=== PATIENT | female | born 1980 | race Caucasian/White ===

== ENCOUNTER 2021-10-11 10:48 | Outpatient (REF) | payer MEDICAID, SELFPAY ==
--- NOTE | ~2021-10-11 | XR_ITS ---
EXAMINATION: XR lumbar spine 2-3V CLINICAL INFORMATION: Reason for Exam M54.50 LOW BACK PAIN COMPARISON: None TECHNIQUE: 3 views of the lumbar spine XR/XR lumbar spine 2-3V FINDINGS/IMPRESSION: 5 nonrib-bearing lumbar-type vertebral bodies. Schmorl's noted are noted involving T12-L3. Vertebral body heights are otherwise maintained. Grade 1 retrolisthesis of L4 on L5. Mild multilevel degenerative disc disease with loss of disc space height, small disc osteophyte complexes and lower lumbosacral facet arthropathy. Loss of disc space height is worst at L4-L5. Paravertebral soft tissues are unremarkable.
== END 2021-10-11 10:49 | disposition home or self-care (01) ==
LOC: HO.HMGCX 10:48
PROVIDERS: PCP Internal Medicine; Visit Provider Internal Medicine
DX: M54.50 Low back pain, unspecified (principal)
CPT/HCPCS: 72100

== ENCOUNTER → 2021-12-06 08:18 | Outpatient (BNVA) | payer MEDICAID, SELFPAY | PROVIDERS: PCP Internal Medicine; Visit Provider Internal Medicine | DX: M53.3 Sacrococcygeal disorders, not elsewhere classified (principal); M79.18 Myalgia, other site; M47.816 Spondylosis without myelopathy or radiculopathy, lumbar region; E66.3 Overweight; Z68.43 Body mass index [BMI] 50.0-59.9, adult; Z88.1 Allergy status to other antibiotic agents; Z88.3 Allergy status to other anti-infective agents; Z88.0 Allergy status to penicillin; Z79.899 Other long term (current) drug therapy | CPT/HCPCS: 99202 ==

== ENCOUNTER 2021-12-22 06:36 | Outpatient (REF) | payer MEDICAID, SELFPAY | END 2021-12-22 06:37 | disposition home or self-care (01) | LOC: HO.RADIR 06:36 | PROVIDERS: Visit Provider Internal Medicine | DX: Z13.89 Encounter for screening for other disorder (principal) ==

== ENCOUNTER 2022-01-13 08:00 | Outpatient (RCR) | payer MEDICAID, SELFPAY ==
--- NOTE | 2021-12-27 16:45 | MHC.PT.EP ---
[facility] [place] Office [place] Office [place] Office [address] [phone] F: [phone] F: [phone] F: [phone] F: [phone] Physical Therapy Plan of Care Date of Evaluation: Date of Surgery: Diagnosis: coccyxygeal pain. Assessment: Pt is a 41 y/o female referred to PT for scrococcygeal disorders after fall resulting in decreased tolerance for static positions if sitting and supine, rolling in bed and disturbed sleep, performing heavy HH chores secondary to decreased B hip and LE strength, decreased core strength, and significant Hx of chronic LBP with R LE dysfunction. Pt is deemed an appropriate candidate to receive skilled PT in order to address her physical limitations to improve her functional ability. Frequency and Duration: The patient will be seen 2x/wk x 5 wks. Short Term Goals: initiate HEP. Alf Goals: I with HEP. Improve B hip abd MMT by at least 1/2 MMT. Improve core strength to > good, initial Fair+. Pt will reports pain limits her from sitting > 1 hour, initial; < 10 min. Pt will report < 1/2 disturbed nights sleep; initial: 3/4 to completely disturbed. Treatment Plan: Modalities to reduce pain, spasms and effusion. Manual therapy to restore motion and function. Therapeutic exercise to improve strength and flexibility. Neuromuscular re-education for posture and balance. Therapeutic activities to return to functional activities of daily living. Electronically signed by: Travon Alfaro PT. Please sign and return to therapist. Thank you for your referral.
--- NOTE | 2022-10-11 15:32 | MHC.PT.DC ---
[facility] [place] Office [place] Office [place] Office [address] [phone] F: [phone] F: [phone] F: [phone] F: [phone] Physical Therapy Discharge Report Diagnosis: coccyxygeal pain. Date of Surgery: Date of Evaluation: 12/21/21 Date of Discharge: 10/11/22 Treatments to Date: 5 Cancellations to Date: 2 No Shows to Date: Discharge Status: Improved Function Patient Elected to Stop Discharge Summary: Pt attended 5 visits with some improvement though did not ultimately follow up with therapy to the end of her program. Electronically signed by: Travon Alfaro PT. Please sign and return to therapist. Thank you for your referral.
== END 2022-10-11 15:36 | disposition home or self-care (01) ==
LOC: HO.PTCHIC 08:00
PROVIDERS: PCP Internal Medicine; Visit Provider Internal Medicine
DX: M53.3 Sacrococcygeal disorders, not elsewhere classified (principal)
CPT/HCPCS: 97110; 97161

== ENCOUNTER 2022-06-29 12:36 | Outpatient (REF) | payer MEDICARE, MEDICAID, SELFPAY ==
--- NOTE | ~2022-06-29 | XR_ITS ---
EXAMINATION: XR CHEST CLINICAL INFORMATION: Bronchitis. COMPARISON: None TECHNIQUE: 2 views of the chest were obtained. FINDINGS: No significant abnormality is noted involving the heart, lungs, mediastinum, bony thorax or soft tissues. XR/XR chest 2V IMPRESSION: No acute cardiopulmonary process.
== END 2022-06-29 12:37 | disposition home or self-care (01) ==
LOC: HO.HMGCX 12:36
PROVIDERS: PCP Internal Medicine; Visit Provider Internal Medicine
DX: J40 Bronchitis, not specified as acute or chronic (principal)
CPT/HCPCS: 71046

== ENCOUNTER 2022-08-04 14:04 | Outpatient (REF) | payer MEDICARE, MEDICAID, SELFPAY ==
--- NOTE | ~2022-08-04 | US_ITS ---
EXAMINATION: US PELVIS CLINICAL INFORMATION: Frequent menstruation with regular cycles COMPARISON: None TECHNIQUE: Ultrasound of the pelvis is performed using both transabdominal and transvaginal transducers along with Doppler. Transvaginal imaging is performed due to inadequate visualization transabdominally. FINDINGS: The uterus is anteverted and retroflexed and measures 9.2 x 3.6 x 4.7 cm in dimension. No focal uterine lesion. Endometrial thickness is normal measuring 1 cm. There are nabothian cysts in the cervix. The ovaries are seen transabdominally only and are normal appearing. The right ovary measures 2.8 x 1.6 x 2.8 cm. The left ovary measures 3.6 x 1.7 x 3.7 cm. There is no fluid in the pelvis. US/US pelvic and transvaginal IMPRESSION: Unremarkable exam.
== END 2022-08-04 14:05 | disposition home or self-care (01) ==
LOC: HO.HMGCX 14:04
PROVIDERS: PCP Internal Medicine; Visit Provider Advanced Practice Midwife
DX: N92.0 Excessive and frequent menstruation with regular cycle (principal)
CPT/HCPCS: 76830; 76856

== ENCOUNTER 2022-09-23 12:54 | Outpatient (REF) | payer MEDICARE, MEDICAID, SELFPAY ==
--- NOTE | 2022-09-23 | PFT_ITS ---
INDICATION: Wheezing. SPIROMETRY: FEV1 to FVC of 77% with an FEV1 of 2.86 L, which is 92% predicted and an FVC of 3.71 L, which is 98% predicted. No significant response to bronchodilators noted. Maximum voluntary ventilation 94% predicted. LUNG VOLUMES: Total lung capacity 116% predicted with a residual volume 138% predicted, and an expiratory reserve volume of 24% predicted. DIFFUSION CAPACITY: DLCO 94% predicted. COMPARISONS: None. INTERPRETATION: No obstructive nor restrictive ventilatory defects identified. No significant response to bronchodilators noted. Of note, the patient does have some mild degrees of small airway disease which could be secondary to reactive airway disease or due to an elevated BMI. Normal maximum voluntary ventilation. Lung volumes do demonstrate significant air trapping and trend of hyperinflation, which is likely secondary to the small airways disease as well. There is a decrease in the expiratory reserve volume secondary to an elevated BMI. Diffusion capacity is within normal limits. If asthma is in the differential, methacholine challenge may be helpful in assessing for hyper-reactive airways. Otherwise, clinical correlation warranted. MD MIRIAN Michael/MODL / [id number]
== END 2022-09-23 12:55 | disposition home or self-care (01) ==
LOC: HO.RESP 12:54
PROVIDERS: PCP Internal Medicine; Visit Provider Registered Nurse
DX: R06.2 Wheezing (principal); R05.1 Acute cough
CPT/HCPCS: 94060; 94727; 94729

== ENCOUNTER 2023-01-19 11:00 | Outpatient (RCR) | payer MEDICARE, MEDICAID, SELFPAY ==
--- NOTE | 2023-02-07 11:48 | MHC.PT.DC ---
[facility] [place] Office [place] Office [place] Office [address] [phone] F: [phone] F: [phone] F: [phone] F: [phone] Physical Therapy Discharge Report Diagnosis: Fibromyalgia. Date of Surgery: Date of Evaluation: 12/20/22 Date of Discharge: 02/07/23 Treatments to Date: 8 Cancellations to Date: No Shows to Date: Discharge Status: Independent with HEP Recommend MD Follow-up Discharge Summary: Susana had been an active participant in her therapy however she had demonstrated persistent limitations in her her ability to progress her therapeutic activities for her prescribed condition d/t other chronic conditions involving her R UE as well as B leg pain and n/t. She is I with a basic program and will consider purchasing a home TENs unit as this helped with some pain. Electronically signed by: Travon Alfaro PT. Please sign and return to therapist. Thank you for your referral.
== END 2023-02-07 11:49 | disposition home or self-care (01) ==
LOC: HO.PTCHIC 11:00
PROVIDERS: PCP Internal Medicine; Visit Provider Internal Medicine
DX: M79.7 Fibromyalgia (principal)
CPT/HCPCS: 97014; 97110; 97161

== ENCOUNTER 2023-01-31 11:58 | Outpatient (REF) | payer MEDICARE, MEDICAID, SELFPAY ==
--- NOTE | ~2023-01-31 | XR_ITS ---
EXAMINATION: XR KNEE, LEFT CLINICAL INFORMATION: Pain COMPARISON: None available. TECHNIQUE: Two views of the left knee. FINDINGS: Bone alignment is normal. No fracture or dislocation. Normal joint spaces. Moderate joint effusion. XR/XR knee LT 2V IMPRESSION: Joint effusion.
== END 2023-01-31 11:59 | disposition home or self-care (01) ==
LOC: HO.HMGCX 11:58
PROVIDERS: PCP Family Medicine; Visit Provider Family Medicine
DX: M25.562 Pain in left knee (principal)
CPT/HCPCS: 73560

== ENCOUNTER 2023-02-10 09:31 | Outpatient (REF) | payer MEDICARE, MEDICAID, SELFPAY ==
--- NOTE | ~2023-02-10 | MM_ITS ---
EXAMINATION: MM SCREENING DIGITAL BREAST TOMOSYNTHESIS, BILATERAL CLINICAL INFORMATION: Screening. Asymptomatic. The lifetime risk of breast cancer based on the Tyrer-Cuzick Model is 12%. COMPARISON: Mammography: 06/20/2019 (baseline). TECHNIQUE: Digital breast tomosynthesis is performed in both the craniocaudal and mediolateral oblique views along with computer-aided detection (CAD). Synthesized 2D images are generated from the tomosynthesis. FINDINGS: The breasts are almost entirely fatty (ACR BI-RADS breast composition Category a). Background stromal markings are normal. There is no developing density or architectural abnormality from prior baseline exam. There are no significant masses, abnormal calcifications, or other abnormalities. The axilla and skin contours are unremarkable. MM/MM tomosynthesis screening BI IMPRESSION: No mammographic evidence of malignancy. ASSESSMENT: BI-RADS 1: Negative RECOMMENDATION: Routine annual mammography screening. This patient's information was entered into a reminder system with a target due date for their next mammogram.
== END 2023-02-10 09:32 | disposition home or self-care (01) ==
LOC: HO.MAMMO 09:31
PROVIDERS: PCP Family Medicine; Visit Provider Family Medicine
DX: Z12.31 Encounter for screening mammogram for malignant neoplasm of breast (principal)
CPT/HCPCS: 77063; 77067

== ENCOUNTER 2023-07-24 11:09 | Outpatient (AMB) | payer MEDICAID, SELFPAY ==
--- NOTE | 2023-07-24 11:10 | MHC.OFFVIS ---
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 She was initially evaluated by Dr. Sharpe in November 2021 and was suggested formal course of physical therapy. Denies any recent trauma, injury or falls. She reports no pain relief or function improvement. Patient reports recently completing cervical, thoracic and lumbar spine MRI results at [facility]- we will request these reports. She has started using walker in February 2023 due to worsening of bilateral leg weakness, pain, numbness and tingling, more frequently on the right than left. She has been followed by Dr. Daniel at [facility] for Worker Comp case with work related injury on 04/06/2019 which has been settled. Patient also reports left knee pain due to OA for which she started PT but cannot tolerate it due to significant mid-low back pain. She reports oxycodone is being prescribed by her PCP and has been the most effective. Gabapentin, Lyrica and previous back injections have not been effective. Denies any fever, weight loss, abdominal or groin pain, bladder or bowel incontinence, or saddle anesthesia. PRIOR Dr. Sharpe 12/06/21: Patient is a 41-year-old female presenting with a history of longstanding mid-back and low-back pain. Her shoulder and low-back pain first started after a fall at work and recently she fell again in her front porch leading to coccyx pain. Patient?s low-back pain was deemed to be secondary to multiple possible pain generators by her previous pain providers including lumbar spondylosis, SI joint dysfunction, and coccygeal pain secondary to trauma. For her coccyx pain, she was prescribed low-dose oxycodone which has now been weaned off. He coccyx pain is the most bothersome at this point and has not responded to the use of a donut pillow. She has not undergone physical therapy specifically for this pain yet and she has not undergone any diagnostic injection for coccydynia either. She has previously failed a trial of MBBs with local anesthetic for her chronic low-back pain. Pain today is described as being 10/10 in intensity in her low and mid back. It is described as an aching stabbing sensation in this region. Pain also radiates down to her left lower extremity on the lateral aspect of it as well as in the front and posterior aspect of the knee. She also has a history of multiple shoulder surgeries and continues to have aching and stabbing pain in her right shoulder. She is currently under treatment at [facility] for this pain. Location Full back pain, radiates down to bilateral legs Duration Chronic pain for many years Characteristics of symptom or complaint Aching, sharp, stabbing, radiating Aggravating or associated factors Standing, walking, bending, movements, cold weather changes Relieving factors Oxycodone 10mg q6h Treatment PT- 1 year ago no improvement. Injections in [place] in 1999 [facility] Medical History Myofascial pain syndrome Overweight Bone spur Surgical History S/P rotator cuff repair H/O section Social History Alcohol intake: never Patient Tobacco Use Status: Current everyday Tobacco user Tobacco use type: Cigarette Cigarette Packs Per Day: 0.5 Substance Use Type: Caffiene Review of Systems Const All systems reviewed & are unremarkable except as noted in HPI and below Physical Exam General: Appears afebrile. Morbidly obese. Alert and oriented. Mood and affect appropriate. Follows and participates in conversation appropriately. Respiratory effort is unlabored. No cough. Able to transition from sit to stand unassisted. Ambulates with assistance of walker. Ambulates with bilaterally normal heel strike and toe off. Back/Spine/Pelvis Other: Well healed incision on the left lateral aspect of the gluteal cleft from a prior pilonidal cyst excision. Lumbar extension reproduces significant pain, flexion relieves her pain. Painful facet loading bilaterally. No midline tenderness to palpation in the thoracic and lumbar spine. Cervical Spine: cervical ROM normal and No Cervical spine tenderness Thoracic/Lumbar Spine: thoracic and lumbar spine normal to inspection, No Thoracic/lumbar spine scar(s), Lasegue's sign negative, straight leg raise negative bilaterally, pain with thoraco-lumbar ROM, paraspinal muscle tenderness, thoraco-lumbar ROM limited, No thoracic spinal tenderness and lumbar spinal tenderness at L4 and at L5 Pelvis: no buttock tenderness Sacroiliac joints: bilaterally nontender Extrem General: Yes capillary refill normal, Yes no clubbing, cyanosis or edema and Yes no calf tenderness Results Reviewed Results Reviewed: Lumbar Spine X-Ray (10/11/21): FINDINGS/IMPRESSION: ? 5 nonrib-bearing lumbar-type vertebral bodies. ? Schmorl's noted are noted involving T12-L3. Vertebral body heights are otherwise maintained. Grade 1 retrolisthesis of L4 on L5. ? Mild multilevel degenerative disc disease with loss of disc space height, small disc osteophyte complexes and lower lumbosacral facet arthropathy. Loss of disc space height is worst at L4-L5. ? Paravertebral soft tissues are unremarkable. Assessment & Plan Assessment & Plan (1) Lumbar spondylosis: Code(s): M47.816 - Spondylosis without myelopathy or radiculopathy, lumbar region (2) Myofascial pain syndrome: Code(s): M79.18 - Myalgia, other site (3) Chronic thoracic back pain: Code(s): M54.6 - Pain in thoracic spine; G89.29 - Other chronic pain (4) Morbid obesity with BMI of 50.0-59.9, adult: Code(s): E66.01 - Morbid (severe) obesity due to excess calories; Z68.43 - Body mass index [BMI] 50.0-59.9, adult (5) Vertebrogenic pain syndrome: Code(s): M54.89 - Other dorsalgia Plan 1.??? Request sent to [facility] for recent whole spine MRI results. Endplate changes noted on vertebral bodies on previous plain films in 2021. May need therapy for vertebrogenic back pain in the future. 2. Patient currently is being prescribed oxycodone, diclofenac gel and amitriptyline prescribed by her PCP which allows her to be less symptomatic and more functional. She has tried gabapentin and Lyrica with minimal relief therefore discontinued it. 3. Patient is seeing Dr. Daniel at [facility] and has received multiple back and joint injections with minimal to no pain relief. She is hesitant towards steroidal. We discussed neuromodulation with SCS trial and implant. Expectations, risks and benefits were reviewed. She is seeing psychologist at [facility]. Informational brochures on SCS has been given to patient today. She will notify us with her decision. 4. Recommend referral for Nutritional Consultation to assist patient with weight loss. All questions and concerns have been answered and patient agreed with the plan. Follow up as needed. Coding Level of Care Code Est Pt Level 4 (36793) Diagnoses Lumbar spondylosis M47.816 Myofascial pain syndrome M79.18 Chronic thoracic back pain M54.6; G89.29 Morbid obesity with BMI of 50.0-59.9, adult E66.01; Z68.43 Vertebrogenic pain syndrome M54.89
[2023-07-24 11:20] VITALS: BP 125/76; PULSE 116; O2SAT 98; BMI 53.6
== END 2023-07-24 11:46 | disposition home or self-care (01) ==
PROVIDERS: PCP Family Medicine; Referring Provider Family Medicine; Visit Provider Nurse Practitioner Family
DX: M47.816 Spondylosis without myelopathy or radiculopathy, lumbar region (principal); M79.18 Myalgia, other site; M54.6 Pain in thoracic spine; G89.29 Other chronic pain; E66.01 Morbid (severe) obesity due to excess calories; Z68.43 Body mass index [BMI] 50.0-59.9, adult; M54.89 Other dorsalgia
CPT/HCPCS: 99214

== ENCOUNTER → 2023-07-24 11:09 | Outpatient (BNVA) | payer MEDICARE, MEDICAID, SELFPAY | PROVIDERS: PCP Family Medicine; Referring Provider Family Medicine; Visit Provider Nurse Practitioner Family | DX: M47.816 Spondylosis without myelopathy or radiculopathy, lumbar region (principal); M79.18 Myalgia, other site; G89.29 Other chronic pain; M54.6 Pain in thoracic spine; M54.89 Other dorsalgia; E66.01 Morbid (severe) obesity due to excess calories; Z68.43 Body mass index [BMI] 50.0-59.9, adult; Z79.891 Long term (current) use of opiate analgesic | CPT/HCPCS: 99212 ==

== ENCOUNTER 2023-10-06 15:36 | Outpatient (REF) | payer MEDICARE, MEDICAID, SELFPAY ==
[2023-10-06 17:26] LABS: MANUAL DIFF FLAG NO
[2023-10-06 17:36] LABS: Basophils Absolute Auto 0.1 X10*3/uL (0.0-0.2); Basophils Percent Auto 1.2 % (0-2); Eosinophils Absolute Auto 0.2 X10*3/uL (0.0-0.4); Eosinophils Percent Auto 2.5 % (0-4); Hemoglobin 12.8 g/dl (12.0-16.0); Imm Gran Abs Auto 0.02 X10*3/uL (0.00-0.03); Imm Gran Pct Auto 0.2 % (0.0-0.4); Lymphocytes Absolute Auto 3.4 X10*3/uL (1.2-4.9); Lymphocytes Percent Auto 37.7 % (20-40); Mean Corpuscular HGB Conc 32.8 g/dl (31.0-35.0); Mean Corpuscular Hemoglobin 31.8 pg (27.0-33.0); Mean Platelet Volume 11.2 fL (9.4-12.3); Monocytes Absolute Auto 0.6 X10*3/uL (0.1-1.2); Monocytes Percent Auto 6.1 % (2-11); Neutrophils Absolute Auto 4.7 x10*3/uL (2.0-8.3); Neutrophils Percent Auto 52.3 % (45-73); Platelet Count 259 X10*3/uL (160-400); Red Blood Count 4.02 X10*6/uL (4.20-5.50); Red Cell Distribution Width 14.2 % (11.0-16.0); White Blood Count 9.1 X10*3/uL (4.8-10.8)
[2023-10-06 17:40] LABS: Appearance Urine Clear; Color Urine Yellow; Glucose Urine UA Negative (Negative); Leukocyte Esterase Urine Negative (Negative); Nitrite Urine Negative (Negative); PH 5.5 (5.0-9.0); Specific Gravity - Urine 1.015 (1.005-1.025); UMIC TRIGGER UACC YES; Urine Blood Small (1+) (Negative); Urine Ketones Negative (Negative); Urine Protein Negative (Neg-Trace)
[2023-10-06 17:49] LABS: Anion Gap 12 (12-20); Blood Urea Nitrogen 6 mg/dL (9-16); Carbon Dioxide 27 mmol/L (22-29); Chloride 106 mmol/L (96-108); Estimated Glomerular Filt Rate > 60; Glucose Random 104 mg/dL (60-115); Potassium 4.2 mmol/L (3.3-5.1); Sodium 141 mmol/L (135-145)
[2023-10-06 17:50] LABS: Bacteria Urine None Seen (None Seen); Hyaline Casts Urine 0-2 /LPF (0-2); Squamous Epithelial Cell Urine 0-2 /HPF (0-2); WBC Urine 0-5 /HPF (0-5)
== END 2023-10-06 15:37 | disposition home or self-care (01) ==
LOC: HO.CHCLDS 15:36
PROVIDERS: Visit Provider Internal Medicine
DX: R10.32 Left lower quadrant pain (principal)
CPT/HCPCS: 36415; 80048; 81001; 85025

== ENCOUNTER 2023-10-09 11:25 | Outpatient (REF) | payer MEDICARE, MEDICAID, SELFPAY ==
--- NOTE | ~2023-10-09 | XR_ITS ---
EXAMINATION: XR ABDOMEN COMPLETE CLINICAL INDICATION: Left upper and left lower quadrant pain COMPARISON: None available. TECHNIQUE: 2 views of the abdomen. FINDINGS: Study limited by body habitus. Nonobstructive bowel pattern. Liver may be slightly prominent in size, correlate clinically. No renal calculi. Calcification right hemipelvis probably phlebolith. Bony structures are intact. XR/XR abdomen min 2V IMPRESSION: No renal calculi.
== END 2023-10-09 11:26 | disposition home or self-care (01) ==
LOC: HO.HMGCX 11:25
PROVIDERS: PCP Family Medicine; Visit Provider Internal Medicine
DX: R10.32 Left lower quadrant pain (principal)
CPT/HCPCS: 74019

== ENCOUNTER 2024-10-07 14:25 | Outpatient (AMB) | payer MEDICARE, MEDICAID, SELFPAY ==
[2024-10-07 14:29] VITALS: BP 120/62; PULSE 106; O2SAT 98; BMI 47.5
--- NOTE | 2024-10-07 14:29 | MHC.OFFVIS ---
Vital Signs 10/07/24 14:29 Height 5 ft 5 in Weight 285 lb 4.45 oz BMI 47.5 BP 120/62 Blood Pressure Location Rt brachial Position Sitting Pulse 106 H Pulse Source Pulse Oximeter Pulse Oximetry (%) 98 Oxygen Delivery Method Room Air Intake Visit Reasons: Colonoscopy Screening Intake Note: NEW PATIENT Reason; Screening No prior hx of colo/egd. + FMHx. Concerns/Questions? Allergies Penicillins [PCN] Allergy (Mild, Verified 10/07/24 14:35) HIVES cephalexin [Keflex] Allergy (Unknown, Verified 10/07/24 14:35) hives fluconazole [Diflucan] Allergy (Unknown, Verified 10/07/24 14:35) n/v acetaminophen Adverse Reaction (Intermediate, Verified 10/07/24 14:35) Bruising ibuprofen Adverse Reaction (Intermediate, Verified 10/07/24 14:35) Bruising HPI HPI Colonoscopy Screening: Details: 44 year old? female with past medical history of hypertension, chronic back pain is here today for pre colonoscopy screening.? Patient was sent to us by her PCP.? This is her first colonoscopy screening.? Patient denies any gastrointestinal symptoms in the past or at present.? Family history of CRC. Patient reports that her sister was diagnosed with CRC 1 week ago and started her chemotherapy. Patient denies any melena, hematochezia, unintentional weight loss or ribbon like stools. Denies history of difficulty with sedation or anesthesia in the past.? Negative for history of sleep apnea.? Denies any history of cardiac, renal, pulmonary, or hepatic disease.?? No history of infectious? diseases like hepatitis A, B, C, HIV or tuberculosis.? Patient is not on any anticoagulation [facility] Medical History Myofascial pain syndrome Overweight Bone spur Surgical History History of carpal tunnel release (~07/2024) S/P rotator cuff repair H/O section Family History (Updated 10/07/24 @ 14:41 by KEV Mederos) Sister GBS (Guillain [place] syndrome) Sister Cervical cancer Sister Colon cancer Social History Alcohol intake: never Patient Tobacco Use Status: Current everyday Tobacco user Tobacco use type: Cigarette Cigarette Packs Per Day: 0.5 Substance Use Type: Caffiene Review of Systems Const Denies weight gain and Denies weight loss ENT Reports no additional complaints, Denies dysphagia and Denies odynophagia Card Reports no additional complaints Resp Reports no additional complaints GI Denies abdominal pain, Denies belching, Denies melena, Denies bloating, Denies change in bowel habits, Denies dysphagia, Denies excessive flatus, Denies dyspepsia, Denies heartburn, Denies diarrhea, Denies loose stools, Denies nausea, Denies odynophagia and Denies vomiting Musc Reports no additional complaints Neuro Reports no additional complaints Psych Reports no additional complaints Endo Reports no additional complaints Physical Exam Vital Signs: Last Vital Signs Pulse 106 H 10/07/24 14:29 BP 120/62 10/07/24 14:29 Pulse Ox 98 10/07/24 14:29 Oxygen Delivery Method Room Air 10/07/24 14:29 BMI result Body Mass Index 47.5 Const General: healthy appearing, no acute distress and well developed Nutritional Appearance: well nourished Orientation/consciousness: patient oriented x3 Resp Effort & Inspection: normal respiratory effort, able to speak in complete sentences, no tracheal deviation and symmetric chest movement Auscultation: clear to auscultation bilaterally Cardio Rate: regular rate GI Inspection: Yes normal to inspection and No distended Palpation (GI): Soft to palpation, not firm, nontender and No hepatosplenomegaly present Auscultation: normal bowel sounds General: Yes no CVA tenderness Back/Spine/Pelvis Back: no CVA tenderness Skin General skin exam: elasticity normal, turgor normal and dry skin Neuro General: patient oriented x3 Psych Appearance: grossly normal Mental Status: mental status grossly normal Assessment & Plan Assessment & Plan (1) Screen for colon cancer: Code(s): Z12.11 - Encounter for screening for malignant neoplasm of colon Plan Patient denies any GI, cardiac or respiratory symptoms.? Denies any issues with anesthesia in the past.? Denies any history of sleep apnea.? No history infectious diseases in the past or present.? Not on any anticoagulation therapy.? Family history of CRC as mentioned above in HPI. Patient reports irregular bowel movements sometimes no bowel movements for 1-2 days. Will send a script for Dulcolax and she can take it as needed here patient can start Dulcolax 5 days before procedure to make sure that she will have a good prep.? Patient denies melena, hematochezia, unintentional weight loss or ribbon like stools.? Discussed at length the pre-procedure,? prep, diet & medications as well as what to expect prior, during and after the procedure.?? Stressed the importance of good bowel prep.? Recommended the use of Vaseline or Calmoseptine OTC & baby wipes with bowel movements to promote comfort.? ?Patient verbalizes understanding and agrees to plan of care.? She was given the opportunity to ask questions and all questions answered.? We will see her after the procedure.? Medications: New bisacodyl (Dulcolax (bisacodyl)) 10 mg (2 x 5 mg) PO BEDTIME 180 tabs 4RF polyethylene glycol 3350 (Miralax) As directed by gastroenterology department at [facility] 238 grams PO ONCE 238 grams 0RF Z12.11 - Encounter for screening for malignant neoplasm of colon Coding Level of Care Code New Pt Level 3 (30053) Diagnoses Screen for colon cancer Z12.11 Time Spent (min) 40 Comment 30 minutes spent with patient and additional 10 minutes spent reviewing her records
== END 2024-10-07 15:09 | disposition home or self-care (01) ==
PROVIDERS: PCP Family Medicine; Visit Provider Nurse Practitioner Family
DX: Z01.818 Encounter for other preprocedural examination (principal); Z12.11 Encounter for screening for malignant neoplasm of colon
CPT/HCPCS: 99024

== ENCOUNTER → 2024-10-07 14:25 | Outpatient (BNVA) | payer MEDICARE, MEDICAID, SELFPAY | PROVIDERS: PCP Family Medicine; Visit Provider Nurse Practitioner Family | DX: Z12.11 Encounter for screening for malignant neoplasm of colon (principal) | CPT/HCPCS: 99212 ==

== ENCOUNTER 2024-10-24 08:25 | Day surgery (SDC) | payer MEDICARE, MEDICAID, SELFPAY ==
--- NOTE | 2024-10-23 13:12 | HO.ANESPROP2 ---
Documented by User: Katya Tse NP 10/23/24 13:12 HPI - Anesthesia Eval Consult details Narrative: 44yo F for Colonoscopy PMFSH Active Problems Active Problems: All Active Problems Vertebrogenic pain syndrome (Acute) Morbid obesity with BMI of 50.0-59.9, adult (Acute) Chronic thoracic back pain (Acute) Myofascial pain syndrome (Acute) Lumbar spondylosis (Acute) Traumatic coccydynia (Acute) Overweight (Acute) S/P rotator cuff repair (Acute) Past Medical History Medical History Myofascial pain syndrome Overweight Bone spur Family History Family History (Updated 10/07/24 @ 14:41 by KEV Mederos) Sister GBS (Guillain Mesopot[place]ia syndrome) Sister Cervical cancer Sister Colon cancer Surgical History Surgical History History of carpal tunnel release (~07/2024) S/P rotator cuff repair H/O section Social History Social History Alcohol intake: never Patient Tobacco Use Status: Current everyday Tobacco user Tobacco use type: Cigarette Cigarette Packs Per Day: 0.5 Use of substances other than those prescribed or required for medical reasons: No Substance Use Type: Caffiene Have you been hit, kicked, punched, or otherwise hurt by someone within the past year? If so, by whom?: No Are you DNR?: No Advance Directives: No Advance Directives Information Provided: Yes Recently lost weight without trying: No Meds Allergies Allergy/AdvReac Type Severity Reaction Status Date / Time Penicillins [PCN] Allergy Mild HIVES Verified 10/07/24 14:35 cephalexin [Keflex] Allergy Unknown hives Verified 10/07/24 14:35 fluconazole [Diflucan] Allergy Unknown n/v Verified 10/07/24 14:35 acetaminophen AdvReac Intermediate Bruising Verified 10/07/24 14:35 ibuprofen AdvReac Intermediate Bruising Verified 10/07/24 14:35 Home Medications ?Medication ?Instructions ?Recorded ?Confirmed ?Last Taken ?Type albuterol sulfate 90 mcg/actuation 2 puff inhalation QID PRN 12/06/21 12/06/21 Unknown History aerosol inhaler (ProAir HFA) chlorthalidone 25 mg tablet 25 mg PO DAILY 12/06/21 12/06/21 Unknown History lisinopril 20 mg tablet 20 mg PO DAILY 12/06/21 12/06/21 Unknown History omeprazole 20 mg capsule,delayed 20 mg PO DAILY 12/06/21 12/06/21 Unknown History release sumatriptan succinate 50 mg tablet 50 mg PO Q2-4H PRN 12/06/21 12/06/21 Unknown History fluticasone propionate 110 2 puff inhalation 07/24/23 Unknown History mcg/actuation HFA aerosol inhaler (Flovent HFA) fluticasone propionate 50 1 spray intranasal QAM 07/24/23 Unknown History mcg/actuation nasal spray,suspension naloxone 4 mg/actuation nasal spray intranasal 07/24/23 Unknown History oxycodone 10 mg tablet 10 mg PO Q6H PRN severe pain 07/24/23 Unknown History alprazolam 0.5 mg tablet mg PO BID PRN 10/07/24 Unknown History amitriptyline 10 mg tablet mg PO DAILY 10/07/24 Unknown History atorvastatin 40 mg tablet mg PO DAILY 10/07/24 Unknown History budesonide 90 mcg/actuation breath inhalation 10/07/24 Unknown History activated powder inhaler (Pulmicort Flexhaler) guanfacine 1 mg tablet,extended mg PO DAILY 10/07/24 Unknown History release 24 hr Assessment and Plan Assessment Anesthesia Assessment: Chart Reviewed Documented by User: Kate Bunn MD 10/24/24 09:24 [facility] Past Medical History Medical History Myofascial pain syndrome Overweight Bone spur Family History Family History (Updated 10/07/24 @ 14:41 by KEV Mederos) Sister GBS (Guillain Mesopotamia syndrome) Sister Cervical cancer Sister Colon cancer Family history of problems with anesthesia: No Surgical History Surgical History History of carpal tunnel release (~07/2024) S/P rotator cuff repair H/O section History of Problems with Anesthesia: No Social History Social History Alcohol intake: never Patient Tobacco Use Status: Current everyday Tobacco user Tobacco use type: Cigarette Cigarette Packs Per Day: 0.5 Use of substances other than those prescribed or required for medical reasons: No Substance Use Type: Caffiene Have you been hit, kicked, punched, or otherwise hurt by someone within the past year? If so, by whom?: No Are you DNR?: No Advance Directives: No Advance Directives Information Provided: Yes Recently lost weight without trying: No Meds Allergies Allergy/AdvReac Type Severity Reaction Status Date / Time Penicillins [PCN] Allergy Mild HIVES Verified 10/07/24 14:35 cephalexin [Keflex] Allergy Unknown hives Verified 10/07/24 14:35 fluconazole [Diflucan] Allergy Unknown n/v Verified 10/07/24 14:35 acetaminophen AdvReac Intermediate Bruising Verified 10/07/24 14:35 ibuprofen AdvReac Intermediate Bruising Verified 10/07/24 14:35 Home Medications ?Medication ?Instructions ?Recorded ?Confirmed ?Last Taken ?Type albuterol sulfate 90 mcg/actuation 2 puff inhalation QID PRN 12/06/21 12/06/21 Unknown History aerosol inhaler (ProAir HFA) chlorthalidone 25 mg tablet 25 mg PO DAILY 12/06/21 12/06/21 Unknown History lisinopril 20 mg tablet 20 mg PO DAILY 12/06/21 12/06/21 Unknown History omeprazole 20 mg capsule,delayed 20 mg PO DAILY 12/06/21 12/06/21 Unknown History release sumatriptan succinate 50 mg tablet 50 mg PO Q2-4H PRN 12/06/21 12/06/21 Unknown History fluticasone propionate 110 2 puff inhalation 07/24/23 Unknown History mcg/actuation HFA aerosol inhaler (Flovent HFA) fluticasone propionate 50 1 spray intranasal QAM 07/24/23 Unknown History mcg/actuation nasal spray,suspension naloxone 4 mg/actuation nasal spray intranasal 07/24/23 Unknown History oxycodone 10 mg tablet 10 mg PO Q6H PRN severe pain 07/24/23 Unknown History alprazolam 0.5 mg tablet mg PO BID PRN 10/07/24 Unknown History amitriptyline 10 mg tablet mg PO DAILY 10/07/24 Unknown History atorvastatin 40 mg tablet mg PO DAILY 10/07/24 Unknown History budesonide 90 mcg/actuation breath inhalation 10/07/24 Unknown History activated powder inhaler (Pulmicort Flexhaler) guanfacine 1 mg tablet,extended mg PO DAILY 10/07/24 Unknown History release 24 hr Exam Airway TM Dist: >3cm Neck ROM: Full Denture: Upper Assessment and Plan Assessment Anesthesia Assessment: Anesthesia Plan Discussed Final Anesthetic Review Family History of Problems with Anesthesia: No History of Problems with Anesthesia: No NPO: Yes ASA Class: III Final Preanesthetic Review: No Changes in Pt Med Stat, Meds/Allgs Chart Reviewed, Consent Obtained/Reviewed and Anes Risks/Benef Reviewed Patient Risk: Intermediate Procedure Risk: Low Anesthetic Plan Anesthetic Plan: TIVA Disposition: Standard PACU
--- OUTSIDE RECORDS SUMMARY | 2024-10-24 08:37 | XMS_ITS | Encounter Summary ---
Author Organization [employer] Address [address] [place] [address] 7 [place] [address] Care Team Providers Care Mental Health Specialist Name Role Phone Tammie Liu MD Primary Care Provider [phone] Reason for Visit * Reason Onset Date Comments Med Refill 08/27/2023 Encounter Details Date Type Department Care Team ([facility] st Contact Info) Description 08/27/2023 Refill [facility] MED & PEDS [address] [place] [address] Tammie Liu MD [address] [place] [address] Lumbar spondylosis Social History Tobacco Use Types Packs/Day Years Used Date Smoking Tobacco: Every Day Cigarettes Smokeless Tobacco: Never Alcohol Use Standard Drinks/Week Comments Never 0 (1 standard drink = 0.6 oz pur e alcohol) Depression Answer Date Recorded Patient Health Questionnaire-9 Score 1 12/30/2022 Housing Stability Answer Date Recorded What is your housing situation today? I have meron santos 07/03/[address] you li ve. Do you have problems with any of the following? None of the above 07/03/2023 Food Insecurity Answer Date Recorded Within the past 12 months, y ou worried that your food would run out before you got money to buy more: Never True 07/03/2023 Within the past 12 months,th e food you bought just didn't last and you didn't have enough money to get more: Never True Transportation Answer Date Recorded In the past 12 months, has l ack of transportation kept you from medical appts, meetings, work or from getting things needed for daily living? No 07/03/2023 Utilities Answer Date Recorded In the past 12 months, has t he electric, gas, oil or water company threatened to shut off services in your home? No 07/03/2023 Depression Answer Date Recorded Patient Health Questionnaire-2 Score 1 12/30/2022 Comments Unknown Sex and Gender Information Value Date Recorded Sex Assigned at Female 07/18/2022 10:28 AM EDT Legal Sex Female 10:28 AM EDT Gender Identity Female 07/18/2022 10:28 AM EDT Sexual Orientation Lesbian or Schneider 07/18/2022 10 :28 AM EDT documented as of this encounter Plan of Treatment Upcoming Encounters Date Type Department Care Team (Late st Contact Info) Description 11/13/2024 2:15 PM EST Clinical Support [facility] MED & PEDS [address] [place] [address] Tania Valenzuela, RN [address] [place] [address] documented as of this encounter Visit Diagnoses Diagnosis Lumbar spondylosis Lumbosacral spondylosis without myelopathy documented in this encounter Additional Health Concerns Assessment Noted Time PHQ-9 Depression Total Score: 1 12/31/19 23 10:22 AM EDT documented as of this encounter Care Teams Mental Health Specialist Relationship Specialty Start Date End Date Tammie Liu MD [address] [place] [address] PCP - General Family Medicine 12/21/22 documented as of this encounter
--- OUTSIDE RECORDS SUMMARY | 2024-10-24 08:37 | XMS_ITS | Encounter Summary ---
Author Organization [employer] Address [address] [place] [address] 7 [place] [address] Care Team Providers Care Local Announcer Name Role Phone Tammie Liu MD Primary Care Provider [phone] Reason for Visit * Reason Onset Date Comments Appointment Request 10/02/2024 Med Refill 10/02/2024 Encounter Details Date Type Department Care Team ([facility] Contact Info) Description 10/02/2024 Telephone [facility] MEDICINE [address] [place] [address] Tammie Liu MD [address] [place] [address] Appointment Request; Med Refill Social History Tobacco Use Types Packs/Day Years Used Date Smoking Tobacco: Every Day Cigarettes Smokeless Tobacco: Never Alcohol Use Standard Drinks/Week Comments Never 0 (1 standard drink = 0.6 oz pur e alcohol) Depression Answer Date Recorded Patient Health Questionnaire-9 Score 0 03/14/2024 Patient Health Questionnaire-9 Score 0 03/14/2024 Last PHQ-9: Questionnaire Data Not on file 0 03/14/2024 Housing Stability Answer Date Recorded What is your housing situation today? I have meron santos 02/22/[address] you li ve. Do you have problems with any of the following? None of the above 02/22/2024 Food Insecurity Answer Date Recorded Within the past 12 months, y ou worried that your food would run out before you got money to buy more: Never True 02/22/2024 Within the past 12 months,th e food you bought just didn't last and you didn't have enough money to get more: Never True 02/2024 Transportation Answer Date Recorded In the past 12 months, has l ack of transportation kept you from medical appts, meetings, work or from getting things needed for daily living? No 02/22/2024 Utilities Answer Date Recorded In the past 12 months, has t he electric, gas, oil or water company threatened to shut off services in your home? Yes 02/22/2024 Depression Answer Date Recorded Patient Health Questionnaire-2 Score 0 03/14/2024 Comments Unknown Sex and Gender Information Value Date Recorded Sex Assigned at Female 07/18/2022 10:28 AM EDT Legal Sex Female 10:28 AM EDT Gender Identity Female 07/18/2022 10:28 AM EDT Sexual Orientation Lesbian or Schneider 07/18/2022 10 :28 AM EDT documented as of this encounter Miscellaneous Notes * Telephone Encounter - Osbaldo Víctor - 10/02/2024 10:44 AM EST TC from pt requesting medication refill. Medications needing refill: oxyCODONE (Roxicodone) 10 MG immediate release tablet To be sent to: [facility] - [place], [place] - [address] [facility] Pt is also requesting call back regarding SHERIFF DETECTIVE visit from 09/10. Pt wanted to give a sincere apologyto the nurse stating she was very sick and wasn't able to get to the phone when she received the call. Please contact pt at [phone]. documented in this encounter Plan of Treatment Upcoming Encounters Date Type Department Care Team ([facility] st Contact Info) Description 11/13/2024 2:15 PM EST Clinical Support [facility] MED & PEDS [address] [place] [address] Tania Valenzuela RN [address] [place] [address] documented as of this encounter Visit Diagnoses Not on filedocumented in this encounter Additional Health Concerns Assessment Noted Time PHQ-9 Depression Total Score: 0 03/14/20 10:37 AM EDT documented as of this encounter Care Teams Local Announcer Relationship Specialty Start Date End Date Tammie Liu MD [address] [place] [address] PCP - General Family Medicine 12/21/22 documented as of this encounter
--- OUTSIDE RECORDS SUMMARY | 2024-10-24 08:37 | XMS_ITS | Encounter Summary ---
Author Organization [employer] Address [address] [place] [address] 7 [place] [address] Care Team Providers Care Biztalk Software Developer Name Role Phone Tammie Liu MD Primary Care Provider [phone] Reason for Visit * Reason Onset Date Comments Prior Authorization 12/27/2023 Encounter Details Date Type Department Care Team ([facility] st Contact Info) Description 12/27/2023 Telephone [facility] MEDICINE [address] [place] [address] Tammie Liu MD [address] [place] [address] Prior Authorization Social History Tobacco Use Types Packs/Day Years [...] encounter Miscellaneous Notes * Telephone Encounter - Osbaldoriley Renee - 12/27/2023 4:38 PM EDT Tc from pt stating Semaglutide-Weight Management (Wegovy) 0.25 MG/0.5ML solution auto-injector needs a prior authorization. documented in this encounter Plan of Treatment Upcoming Encounters Date Type Department Care Team (Late st Contact Info) Description 11/13/2024 2:15 PM EST Clinical Support [facility] MED & PEDS [address] [place] [address] Tania Valenzuela, FARA [address] [place] [address] documented as of this encounter Visit Diagnoses Not on filedocumented in this encounter Additional Health Concerns Assessment Noted Time PHQ-9 Depression Total Score: 1 12/31/19 23 10:22 AM EDT documented as of this encounter Care Teams Biztalk Software Developer Relationship Specialty Start Date End Date Tammie Liu MD [address] [place] [address] PCP - General Family Medicine 12/21/22 documented as of this encounter
--- OUTSIDE RECORDS SUMMARY | 2024-10-24 08:37 | XMS_ITS | Encounter Summary ---
Author Organization [employer] Address [address] [place] [address] 7 [place] [address] Care Team Providers Care Pathology Specialist Name Role Phone Tammie Liu MD Primary Care Provider [phone] Reason for Visit * Reason Onset Date Comments Med Refill 11/17/2023 Encounter Details Date Type Department Care Team ([facility] st Contact Info) Description 11/17/2023 Telephone [facility] MEDICINE [address] [place] [address] Tammie Liu MD [address] [place] [address] Med Refill Social History Tobacco Use Types [...] encounter Miscellaneous Notes * Telephone Encounter - Janine Huynh - 11/17/2023 9:50 AM EST Tc from pt requesting script for Semaglutide-Weight Management (Wegovy) 0.25 MG/0.5ML solution auto-injector to be sent to [address] [address] due to [facility] pharmacy being out of stock documented in this encounter Plan of Treatment Upcoming Encounters Date Type Department Care Team ([facility] Contact Info) Description 11/13/2024 2:15 PM EST Clinical Support [facility] MED & PEDS [address] [place] [address] Tania Valenzuela, RN [address] [place] [address] documented as of this encounter Visit Diagnoses Not on filedocumented in this encounter Additional Health Concerns Assessment Noted Time PHQ-9 Depression Total Score: 1 12/31/19 23 10:22 AM EDT documented as of this encounter Care Teams Pathology Specialist Relationship Specialty Start Date End Date Tammie Liu MD [address] [place] [address] PCP - General Family Medicine 12/21/22 documented as of this encounter
--- OUTSIDE RECORDS SUMMARY | 2024-10-24 08:38 | XMS_ITS | Encounter Summary ---
Author Organization [employer] Address [address] [place] [address] 7 [place] [address] Care Team Providers Care Office Assistant Name Role Phone Tammie Liu MD Primary Care Provider [phone] Reason for Visit * Reason Onset Date Comments Med Refill 10/02/2024 Encounter Details Date Type Department Care Team ([facility] st Contact Info) Description 10/02/2024 Refill [facility] MED & PEDS [address] [place] [address] Tania Valenzuela, FARA [address] [place] [address] Lumbar spondylosis Social History Tobacco Use Types [...] 2:15 PM EST Clinical Support [facility] MED & PEDS [address] [place] [address] Tania Valenzuela, RN [address] [place] [address] documented as of this encounter Visit Diagnoses Diagnosis Lumbar spondylosis Lumbosacral spondylosis without myelopathy documented in this encounter Additional Health Concerns Assessment Noted Time PHQ-9 Depression Total Score: 0 03/14/20 24 10:37 AM EDT documented as of this encounter Care Teams Office Assistant Relationship Specialty Start Date End Date Tammie Liu MD [address] [place] [address] PCP - General Family Medicine 12/21/22 documented as of this encounter
--- OUTSIDE RECORDS SUMMARY | 2024-10-24 08:38 | XMS_ITS | Encounter Summary ---
Author Organization [employer] Address [address] [place] [address] [address] [place] [address] Care Team Providers Care Web Development Consultant Name Role Phone Tammie Liu MD Primary Care Provider [phone] Encounter Details Date Type Department Care Team (Latest Contact Info) Description 10/02/2024 Travel Social History Tobacco Use Types Packs/Day Years [...] Upcoming Encounters Date Type Department Care Team ([facility] st Contact Info) Description 11/13/2024 2:15 PM EST Clinical Support [facility] MED & PEDS [address] [place] [address] Tania Valenzuela, RN [address] [place] [address] documented as of this encounter Visit Diagnoses Not on filedocumented in this encounter Additional Health Concerns Assessment Noted Time PHQ-9 Depression Total Score: 0 03/14/20 24 10:37 AM EDT documented as of this encounter Care Teams Web Development Consultant Relationship Specialty Start Date End Date Tammie Liu MD [address] [place] [address] PCP - General Family Medicine 12/21/22 documented as of this encounter
--- OUTSIDE RECORDS SUMMARY | 2024-10-24 08:38 | XMS_ITS | Encounter Summary ---
Author Organization [employer] Address [address] [place] [address] 7 [place] [address] Care Team Providers Care Staff Analyst Name Role Phone Tammie Liu MD Primary Care Provider [phone] Reason for Visit * Reason Onset Date Comments Med Refill 07/04/2024 Encounter Details Date Type Department Care Team ([facility] st Contact Info) Description 07/04/2024 Telephone [facility] MEDICINE [address] [place] [address] Tammie Liu MD [address] [place] [address] Med Refill Social History Tobacco Use Types [...] encounter Miscellaneous Notes * Telephone Encounter - Judy Dominiqeu - 07/04/2024 4:39 PM EDT Tc from pt stating she received a call from [employer] nurse. * Telephone Encounter - Efrain Longo - 07/04/2024 2:02 PM EDT TC from pt requesting medication refill. Medications needing refill : oxyCODONE (Roxicodone) 10 MG immediate release tablet To be sent to: [facility] documented in this encounter Plan of Treatment Upcoming Encounters Date Type Department Care Team (Late st Contact Info) Description 11/13/2024 2:15 PM EST Clinical Support [facility] MED & PEDS [address] [place] [address] Tania Valenzuela, FARA [address] [place] [address] documented as of this encounter Visit Diagnoses Not on filedocumented in this encounter Additional Health Concerns Assessment Noted Time PHQ-9 Depression Total Score: 0 03/14/20 24 10:37 AM EDT documented as of this encounter Care Teams Staff Analyst Relationship Specialty Start Date End Date Tammie Liu MD [address] [place] [address] PCP - General Family Medicine 12/21/22 documented as of this encounter
--- OUTSIDE RECORDS SUMMARY | 2024-10-24 08:38 | XMS_ITS | Clinical Summary ---
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 ASCVD risk factor, treating to a non-HDL-C goal of <100 mg/dL (LDL-C of <70 mg/dL) is considered a therapeutic option. Blood Venous blood specimen / Unknown 01/27/2023 9:55 AM EDT 01/27/2023 9:56 AM EDT Narrative [facility] - 01/28/2023 2:14 AM EDT FASTING:YES FASTING: YES us Tammie Liu MD LAB BLOOD ORDERABLES Final Re sult [facility] [address], [place] [address] [facility] [address] [place] [address] * THINPREP TIS PAP AND HPV mRNA E6/E7 WITH REFLEX TO HPV 16,18/45 (06/14/2022 11:40 AM EDT) Clinical Information: None given CONVERTED LEGACY LABS COMMENT SEE COMMENT [facility] Comment: EXPLANATORY NOTE: ? The Pap is a screening test for cervical cancer. It is ?? not a diagnostic test and is subject to false negative ?? and false positive results. It is most reliable when a ?? satisfactory sample, regularly obtained, is submitted ?? with relevant clinical findings and history, and when ?? the Pap result is evaluated along with historic and ?? current clinical information. ?? COMMENT: This Pap test has been evaluated with computer assisted technology. CONVERTED LEGACY LABS Police Radio Dispatcher : SEE COMMENT CONVERTED [facility]GACY LABS Comment: ED, CT(ASCP) CT screening location: ?? [facility] ?? [address] [place] [address] ?? [place] [address] HPV nRNA E6/E7 Not Detected Not Detected CON[facility] Comment: Methodology: Cracker Dough Mixer-Mediated Amplification This assay detects E6/E7 viral messenger RNA (mRNA) from 14 high-risk HPV types (16,18,31,33,35,39,45,51,52,56,58,59,66,68). ? Cervical sources are required for HPV testing. If a vaginal source from a patient who has had a total hysterectomy with removal of cervix was ?? submitted, please contact the testing laboratory for alternative testing options. ?? For additional information, please refer to http://education.Ksplice.FreedomPay/faq/VKM800u5 (This link if provided for information/ educational purposes only.) Infection Shift in vaginal gela suggestive of bacterial vaginosis. CONVERTED LEGACY LABS Interpretation/R esult: Negative for intraepithelial lesion or malignancy. CONVERTED [facility]GACY LABS LMP: 06/05/22 CONVERTED LEGACY LABS Prev. BX: NONE GIVEN CONVERTED LEGACY LABS Prev. PAP: 05/2019 NIL/NEG CONV ERTED LEGACY LABS SOURCE: None given CONVERTED [facility]GAC[facility] Statement Of Adequacy: SEE COMMENT [facility] Comment: Satisfactory for evaluation. Endocervical/transformation zone component absent. 06/14/2022 11:4 0 AM EDT Diana Armstrong CNM LAB PATHOLOGY ORDERABLES Final Result CONVERTED [facility]GACY LAB[facility] from Last 3 Months or Most Recently Relevant to Health Maintenance Insurance MEDICARE Member Subscriber Plan / Payer ( fective 2022-Present) Name:Susana Hi Member ID:[id number] Relation to Subscriber:Self Name:Susana Hi Subscriber ID:[id number] Payer ID:STATE Group ID:Not on file Type:Medicare Address: [facility] [address] [address] [facility] Care Teams Stave Grader Relationship Specialty Start Date End Date Tammie Liu MD [address] [place] [id number] PCP - General Family Medicine 12/21/22
--- OUTSIDE RECORDS SUMMARY | 2024-10-24 08:38 | XMS_ITS | Encounter Summary ---
Author Organization [employer] Address [address] [place] [address] 7 [place] [address] Care Team Providers Care Recruiting Operations Consultant Name Role Phone Tammie Liu MD Primary Care Provider [phone] Encounter Details Date Type Department Care Team ([facility] Contact Info) Description 10/02/2024 Telephone [facility] [address] [place] [address] Tania Valenzuela, RN [address] [place] [address] Social History Tobacco Use Types Packs/Day Years [...] your housing situation today? I have meron snatos 02/22/[address] you li [...] encounter Miscellaneous Notes * Telephone Encounter - Tania Valenzuela RN - 10/02/2024 12:58 PM EST TC back to pt, [employer] [place] scheduled for 11/13/24 @2:15pm documented in this encounter Plan of Treatment Upcoming Encounters Date Type Department Care Team (Late st Contact Info) Description 11/13/2024 2:15 PM EST Clinical Support [facility] [address] [place] [address] Tania Valenzuela, RN [address] [place] [address] documented as of this encounter Visit Diagnoses Not on filedocumented in this encounter Additional Health Concerns Assessment Noted Time PHQ-9 Depression Total Score: 0 03/14/20 24 10:37 AM EDT documented as of this encounter Care Teams Recruiting Operations Consultant Relationship Specialty Start Date End Date Tammie Liu MD [address] [place] [address] PCP - General Family Medicine 12/21/22 documented as of this encounter
--- OUTSIDE RECORDS SUMMARY | 2024-10-24 08:38 | XMS_ITS | Encounter Summary ---
Author Organization [employer] Address [address] [place] [address] 7[address] [place] [address] Care Team Providers Care Branch Associate Name Role Phone Tammie Liu MD Primary Care Provider [phone] Encounter Details Date Type Department Care Team ([facility] st Contact Info) Description 06/27/2023 Abstract [facility] [address] [place] [address] Tammie Liu MD [address] [place] [address] Social History Tobacco Use Types Packs/Day Years Used Date Smoking Tobacco: Every Day Cigarettes Smokeless Tobacco: Never Alcohol Use Standard Drinks/Week Comments Never 0 (1 standard drink = 0.6 oz pur e alcohol) Depression Answer Date Recorded Patient Health Questionnaire-9 Score 1 12/30/2022 Housing Stability Answer Date Recorded What is your housing situation today? I have meron santos 06/27/[address] you li ve. Do you have problems with any of the following? None of the above 06/27/2023 Food Insecurity Answer Date Recorded Within the past 12 months, y ou worried that your food would run out before you got money to buy more: Never True 06/27/2023 Within the past 12 months,th e food you bought just didn't last and you didn't have enough money to get more: Never True 06/2023 Transportation Answer Date Recorded In the past 12 months, has l ack of transportation kept you from medical appts, meetings, work or from getting things needed for daily living? No 06/27/2023 Utilities Answer Date Recorded In the past 12 months, has t he [employer], [employer], oil or water company threatened to shut off services in your home? No 06/27/2023 Depression Answer Date Recorded Patient Health Questionnaire-2 [...] Description 11/13/2024 2:15 PM EST Clinical Support [facility] MED [facility] PEDS [address] [place] [address] Tania Valenzuela, FARA [address] [place] [address] documented as of this encounter Visit Diagnoses Not on filedocumented in this encounter Additional Health Concerns Assessment Noted Time PHQ-9 Depression Total Score: 1 12/31/19 23 10:22 AM EDT documented as of this encounter Care Teams Branch Associate Relationship Specialty Start Date End Date Tammie Liu MD [address] [place] [address] PCP - General Family Medicine 12/21/22 documented as of this encounter
--- OUTSIDE RECORDS SUMMARY | 2024-10-24 08:38 | XMS_ITS | Encounter Summary ---
Author Organization [employer] Address [address] [place] [address] 7t [place] [address] Care Team Providers Care Greenkeeper Name Role Phone Tammie Liu MD Primary Care Provider [phone] Reason for Visit * Reason Comments Med Change Request Encounter Details Date Type Department Care Team ([facility] st Contact Info) Description 09/26/2023 Refill [facility] [address] [place] [address] Tammie Liu MD [address] [place] [address] Wheezing Social History Tobacco Use Types Packs/Day Years Used Date Smoking Tobacco: Every Day Cigarettes Smokeless Tobacco: Never Alcohol Use Standard Drinks/Week Comments Never 0 (1 standard drink = 0.6 oz pur e alcohol) Depression Answer Date Recorded Patient Health Questionnaire-9 Score 1 12/30/2022 Housing Stability Answer Date Recorded What is your housing situation today? I have meronerna santos 07/03/[address] you [...] Description 11/13/2024 2:15 PM EST Clinical Support [facility] [address] [place] [address] Tania Valenzuela, FARA [address] [place] [address] documented as of this encounter Visit Diagnoses Diagnosis Wheezing documented in this encounter Additional Health Concerns Assessment Noted Time PHQ-9 Depression Total Score: 1 12/31/19 23 10:22 AM EDT documented as of this encounter Care Teams Greenkeeper Relationship Specialty Start Date End Date Tammie Liu MD [address] [place] [address] PCP - General Family Medicine 12/21/22 documented as of this encounter
--- OUTSIDE RECORDS SUMMARY | 2024-10-24 08:38 | XMS_ITS | Clinical Summary ---
Author Organization [facility] Address [address] [place] [phone] Phone Care Team Providers Care Application Spec Name Role Phone Tammie Liu MD Primary Care Provider [phone] Allergies Active Allergy Reactions Criticality Noted Date Comments Acetaminophen Bruising 08/05/2024 NOT SURE IF TYLENOL CAUSES BRUISING Cephalexin Hives Low 02/07/2022 Other reaction(s): nausea/itch Diclofenac 06/26/2024 GI upset Ibuprofen Bruising 08/05/2024 Penicillins Anaphylaxis,Hives,Na usea And Vomiting,Rash High 04/28/2015 Penicillin G: Other reaction(s): Hives, vomiting, shortness of breath, Hives/Urticaria Medications Medication Sig Dispensed Refills Start Date End Date Status semaglutide (Wegovy) 1.7 mg/0.75 mL injection pen Inject under the skin. 04/24/2024 Active atorvastatin (LIPITOR) 40 mg tablet Take 1 tablet (40 mg total) by mouth 1 (one) time each day in the morning. 03/29/2024 Active albuterol HFA (Ventolin HFA) 90 mcg/actuation inhaler Inhale 2 puffs by mouth every 4 (four) hours if needed. 08/03/2023 Active chlorthalidone (HYGROTON) 25 mg tablet Take 1 tablet (25 mg total) by mouth 1 (one) time each day in the morning. 08/30/2023 Active amitriptyline (ELAVIL) 10 mg tablet Take 1 tablet (10 mg total) by mouth at bedtime. 11/24/2022 Active SUMAtriptan (IMITREX) 50 mg tablet Take 1 tablet (50 mg total) by mouth 1 (one) time if needed. 08/08/2019 Active acetaminophen (TYLENOL) 500 mg tablet Take 2 Tablets by mouth. 03/27/2023 Active guanFACINE (TENEX) 1 mg tablet TAKE ONE TABLET EVERY MORNING FOR ANXIETY Active lisinopriL (PRINIVIL,ZESTRIL) 20 mg tablet TAKE ONE TABLET EVERY MORNING Active tiZANidine (ZANAFLEX) 4 mg tablet TAKE ONE TABLET EVERY 8 HOURS NEEDED FOR MUSCLE SPASMS Active ALPRAZolam (XANAX) 0.5 mg tablet 1 tablet by mouth twice a day as needed and 1 extra tablet every 3 days as needed (use ONLY if no relief from guanfacine) Active oxyCODONE (ROXICODONE) 10 mg immediate release tablet 1 Tablet by mouth 4 times daily. Active omeprazole (PriLOSEC) [address] capsule Take 1 capsule (20 mg total) by mouth if needed. Do not crush or chew. Active ondansetron (ZOFRAN) 4 mg tablet Take 1 tablet (4 mg total) by mouth every 8 (eight) hours if needed for nausea or vomiting. Active fluticasone propionate (FLONASE) 50 mcg/actuation nasal spray Administer 1 spray into each nostril 1 (one) time each day if needed for rhinitis. Shake gently. Before first use, prime pump. After use, clean tip and replace cap. Active oxyCODONE (ROXICODONE) 5 mg immediate release tablet Take 1 tablet (5 mg total) by mouth every 6 (six) hours if needed for severe pain. Max Daily Amount: 20 mg 6 tablet 08/14/2024 Active Active Problems Problem Noted Date Diagnosed Date Acute bilateral low back pain 03/22/2024 Overview (2024): Last Assessment & Plan: Patient with chronic lumbar back pain, exacerbated. Discussed with patient that she will be better served discussing with pain management of other pain control modalities. Already on daily 60 MME of opiates and is on BZO's. Will send tizanidine. Hand pain, left 03/14/2024 Right carpal tunnel syndrome 08/24/2023 Abnormal bruising 06/19/2023 Overview (2024): Last Assessment & Plan: -Patient with complaints of easy bruising will be send for labs for further evaluation. Lumbar spondylosis 03/08/2023 Overview (2024): Last Assessment & Plan: Pain control helping with better sleep, not much with movement. At this point, will send Rx for 28 days, COT specialist aware she needs monitoring and has set her up for an appointment. At this point need to continue w/ narcan prn. Will benefit of weaning of BZO's. Myofascial pain syndrome 03/08/2023 Carpal tunnel syndrome of left wrist 03/03/2023 Acute pain of left knee 01/26/2023 Overview (2024): Last Assessment & Plan: Patient requested second opinion by another provider. Given her limitation in mobility and restroom no available in first floor, it was deemed medical necessary to get a commode, given her weight she will need an extra wide and heavy duty commode chair. Message sent to DME specialist Fibromyalgia 12/30/2022 Overview (2024): Last Assessment & Plan: Will increase dose of Lyrica from 75 mg BID to 150 mg BID. Sent to pharmacy Chronic pain syndrome 10/31/2022 Overview (2024): Last Assessment & Plan: Patient with hx of fibromyalgia, chronic pain in her upper/mid/low back and both arms, she needs intermittent rest period, will refer for PT Gastroesophageal reflux disease without esophagi tis 10/31/2022 Overview (2024): Last Assessment & Plan: Will renew omeprazole, continue lifestyle modifications Primary hypertension 10/31/2022 Overview (2024): Last Assessment & Plan: Renewed medications, reinforced low sodium diet and exercise as tolerated, bp target <140/90 Chronic back pain 09/05/2022 Overview (2024): Last Assessment & Plan: -Will send trial of oxycodone for 14 days and reassess pain management. If patient shows improvements, will rx for chronic prescription -Will be prescribing opioids to treat pain. Additionally, will prescribe Narcan injection to be causes about an overdose. -Referred to Pain Management. -Follow up in 2 weeks. Factor 5 Leiden mutation, heterozygous 2 Hep C w/o coma, chronic 09/05/2022 Migraine with aura 09/05/2022 Mood disorder 09/05/2022 Nicotine use disorder 09/05/2022 Encounters Date Type Department Care Team Description 08/27/2024 10:00 AM EST Office Visit Orthopedic Surgery [facility] [address] [facility] [address] [place] [phone] Cinthya Bajwa PA S/P carpal tunnel release (Primary Dx) 08/14/2024 11:30 AM EST - 08/14/2024 12:[address] [facility] [place] [address] [place] [phone] Shanon Martinez MD OPEN CARPAL TUNNEL RELEASE RIGHT [[id number] (CPT??)] 08/14/2024 11:19 AM EST Anesthesia Event [facility] [place] [address] [place] [phone] Josephine Hudson MD 08/14/2024 9:19 AM EST - 08/14/2024 2:00 PM EST Hospital Encounter [facility] [place] [address] [place] [phone] Shanon Martinez MD Discharge Disposition: Home or Self Care 08/07/2024 Telephone Orthopedic Surgery [facility] [address] [facility] [address] [place] [phone] Shanon Martinez MD medication and letter 08/06/2024 11:45 AM EST Consult Orthopedic Surgery [facility] [address] [facility] [address] [place] [phone] Shanon Martinez MD Right carpal tunnel syndrome (Primary Dx) from Last 3 Months Immunizations Name Administration Dates Next Due Hepatitis A Adult (Havrix; V aqta) 19yo and older 01/10/2020,07/11/2019 Hepatitis B (Didsuqa-O-Ogbwt , Recombivax HB-Adult) 19yo and older 01/10/2020,11/11/2019,07/11/2019 Tdap Tetanus diptheria acell ular pertussis (Boostrix; Adacel) 7yo and older 01/10/2020 Surgical History Surgery Date Site/Laterality Comments CHOLECYSTECTOMY 2008 PROCEDURE: OK CHOLECYSTECTOMY SECTION 1997 and 2010 PROCEDURE: HISTORICAL SHOULDER OPEN ROTATOR CUFF REPAIR Right X2 TENDON MANIPULATION Right SHOULDER CARPAL TUNNEL RELEASE Bilateral Medical History Medical History Date Comments Factor 5 Leiden mutation, he terozygous (CMS/HCC) DX:Factor 5 Leiden mutation, heterozygous (HCC) Family history of cerebral aneurysm DX:Family history of cerebral aneurysm Hypertension Hyperlipidemia Dental disease TOP DENTURE DEMARCUS OM PARTIAL GERD (gastroesophageal reflux disease) Anxiety PTSD (post-traumatic stress disorder) Depression Chronic pain disorder Arthritis Joint pain Carpal tunnel syndrome of right wrist Social History Tobacco Use Types Packs/Day Years Used Date Smoking Tobacco: Every Day Cigarettes Passive Smoke Exposure: Current Smokeless Tobacco: Never Alcohol Use Standard Drinks/Week Comments Not Currently 0 (1 standard drink = 0.6 oz pur e alcohol) MAX Sex and Gender Information Value Date Recorded Sex Assigned at Female 08/07/2024 3:22 AM EST Gender Identity Female 08/07/2024 3:22 AM EST Sexual Orientation Lesbian or Schneider 08/07/2024 3: 22 AM EST Job Start Date Occupation Industry Not on file Not on file Not on file Obstetrics History Last Filed Vital Signs Vital Sign Reading Time Taken Comments Blood Pressure 106/69 08/14/2024 12:56 PM EST Pulse 80 08/14/2024 12:56 PM EST Temperature 36.4 ??C (97.6 ??F) 08/14/2024 12:[address] Respiratory Rate 20 08/14/2024 12:15 PM EST Oxygen Saturation 100% 08/14/2024 12:56 PM EST Inhaled Oxygen Concentration - - Weight 117 kg (258 lb) 08/14/2024 9:52 AM EST Height 165.1 cm (5' 5 ) 08/14/2024 9:52 AM EST Body Mass Index 42.93 08/14/2024 9:52 AM EST Plan of Treatment Health Maintenance Due Date Last Done Comments Pneumococcal Vaccine: Pediatrics (0 to 5 Years) and At-Risk Patients (6 to 64 Years) (1 of 2 - PCV) 1985 Cervical Cancer Screening: P ap Smear 2000 Colorectal Cancer Screening: Colonoscopy 08/28/2022 Hepatitis C Screening 08/28/2022 Medicare Annual Wellness Visit 08/28/2022 Social Influencers of Health Screening 08/28/2022 Hypertension/CHF/CAD Annual BMP Blood Test 2024 COVID-19 Vaccine (3 - 2023-2 5 season) 2024 08/04/2021, 07/07/2021 Influenza Vaccine (#1) 2024 Breast Cancer Screening 02/10/2025 02/10/2023 Depression Screening 03/14/2025 03/14/2024 Cholesterol Screening (Lipid Panel) 01/28/2028 01/27/2023 DTaP,Tdap,and Td Vaccines (2 - Td or Tdap) 01/09/2030 01/10/2020 Hepatitis A Vaccines Aged Out 01/10/2020, 07/11/2019 No longer eligible based on patient's age to complete this topic Hepatitis B Vaccines Completed 01/10/2020, 11/11/2019, 07/11/2019 HIV Screening Completed 01/27/2023 HIB Vaccines Aged Out No longer eligi ble based on patient's age to complete this topic HPV Vaccines Aged Out No longer eligi ble based on patient's age to complete this topic IPV Vaccines Aged Out No longer eligi ble based on patient's age to complete this topic MMR Vaccines Aged Out No longer eligi ble based on patient's age to complete this topic Meningococcal ACWY Vaccine Aged Out N o longer eligible based on patient's age to complete this topic RSV Immunization Patients Under 20 months Aged Out No longer eligible b ased on patient's age to complete this topic Varicella Vaccines Aged Out No longer eligible based on patient's age to complete this topic Procedures Procedure Name Priority Date/Time Associated Diagnosis Comments OK NEUROPLASTY/TRANSPOSIT ION MEDIAN NERVE AT CARPAL TUNNEL 08/14/2024 11:18 AM EST Carpal tunnel syndrome, right upper limb Case Notes IV sedation w/regional block TH AN NERVE BLOCK SUPRACLAVICULAR (NO CHARGE) Routine 08/14/2024 11:03 AM EST TH AN NERVE BLOCK SUPRACLAVICULAR (CHARGE) Routine 08/14/2024 11:03 AM EST POC , URINE DIAGNOSTIC Routine 08/14/2024 10:14 AM EST from Last 3 Months Results * TH AN NERVE BLOCK SUPRACLAVICULAR (CHARGE), TH AN NERVE BLOCK SUPRACLAVICULAR (NO CHARGE) (08/14/2024 11:03 AM EST) Josephine Patton MD - 08/14/2024 11:03 AM EST Josephine Hudson MD ? 08/14/2024 11:25 AM Peripheral Block Patient location during procedure: pre-op Start time: 08/14/2024 11:03 AM End time: 08/14/2024 11:07 AM Reason for block: post-op pain management Staffing Performed: anesthesiologist Anesthesiologist: Josephine Hudson MD Preanesthetic Checklist Completed: patient identified, IV checked, site marked, risks and benefits discussed, surgical consent, monitors and equipment checked, pre-op evaluation and timeout performed Peripheral Block Patient position: supine Prep: ChloraPrep Patient monitoring: continuous pulse ox and heart rate (NIBP) Block type: supraclavicular Laterality: right Injection technique: single-shot Guidance: ultrasound guided and Ultrasound image saved to chart Local infiltration: lidocaine Needle Needle type: short-bevel Needle gauge: 21 G Needle length: 5 cm Needle localization: ultrasound guidance (Ultrasound with tip visualized throughout) Medications Administered ropivacaine (NAROPIN) injection 0.5 % - infiltration 30 mL - 08/14/2024 11:03:00 AM Assessment Injection assessment: negative aspiration for heme, no paresthesia on injection, incremental injection with negative aspiration q 5ml and local visualized surrounding nerve on ultrasound Paresthesia pain: none Heart rate change: no Slow fractionated injection: yes Additional Notes Hellen-neural local anesthesia spread. Injectate: Ropivicaine 0.5% Volume: 20mL Clonidine 100mcg administered with local anesthetic Sedation with meaningful contact. Additional monitoring: NiBP Ultrasound image saved to chart Block placed per surgeon request Josephine Hudson MD ANESTHESIA ORDERABLE S * POC , urine manually resulted (08/14/2024 10:14 AM EST) HCG, Ur POC Negative Negative POC hCG Int QC Pass? Yes Yes Urine Urine specimen obtained by clean catch procedure / Unknown 08/14/2024 10:14 AM EST Josephine Hudson MD POINT OF CARE TEST E NTER/EDIT ORDERABLES from Last 3 Months Care Teams Application Spec Relationship Specialty Start Date End Date Tammie Liu MD [address] [place] [address] PCP - General Family Medicine 08/06/24
--- OUTSIDE RECORDS SUMMARY | 2024-10-24 08:38 | XMS_ITS | Encounter Summary ---
Author Organization [employer] Address [address] [place] [address] 7 [place] [address] Care Team Providers Care Temper Mill Operator Name Role Phone Tammie Liu MD Primary Care Provider [phone] Reason for Visit * Reason Onset Date Comments FYI 10/09/2023 Encounter Details Date Type Department Care Team ([facility] Contact Info) Description 10/09/2023 Telephone [facility] CHC MED & PEDS [address] [place] [address] Tammie Liu MD 505 [place] [address] FYI Social History Tobacco Use Types Packs/Day Years [...] encounter Miscellaneous Notes * Telephone Encounter - Lina Garcia RN - 10/10/2023 3:55 PM EST Noted. Pt will be informed of results when received. * Telephone Encounter - Piotr Mathews RN - 10/09/2023 12:34 PM EST Please see FYI below. * Telephone Encounter - Osbaldo Renee - 10/09/2023 12:14 PM EST Tc from pt calling regarding same day appt with Dr. Brady. She wanted to let him know she had her x-rays done today at [facility] 10/09/23. documented in this encounter Plan of Treatment Upcoming Encounters Date Type Department Care Team (Late st Contact Info) Description 11/13/2024 2:15 PM EST Clinical Support [facility] MED & PEDS [address] [place] [address] Tania Valenzuela, FARA 505 [place] [address] documented as of this encounter Visit Diagnoses Not on filedocumented in this encounter Additional Health Concerns Assessment Noted Time PHQ-9 Depression Total Score: 1 12/31/19 10:22 AM EDT documented as of this encounter Care Teams Temper Mill Operator Relationship Specialty Start Date End Date Tammie Liu MD [address] [place] [address] PCP - General Family Medicine 12/21/22 documented as of this encounter
--- OUTSIDE RECORDS SUMMARY | 2024-10-24 08:38 | XMS_ITS | Encounter Summary ---
Author Organization [employer] Address [address] [place] [address] 7 [place] [address] Care Team Providers Care Senior Web Analyst Name Role Phone Tammie Liu MD Primary Care Provider Reason for Visit * Reason Onset Date Comments Med Refill 10/27/2023 Encounter Details Date Type Department Care Team ([facility] st Contact Info) Description 10/27/2023 Telephone [facility] CHC MED & PEDS [address] [place] [address] Tammie Liu MD 505 [place] [address] Med Refill Social History Tobacco Use Types [...] encounter Miscellaneous Notes * Telephone Encounter - Gisel Fofana - 10/27/2023 2:16 PM EST TC from pt requesting medication refill. Medications needing refill : oxyCODONE (Roxicodone) 10 MG immediate release tablet To be sent to: [facility] - [place], [place] - [address] [place] [address] documented in this encounter Plan of Treatment Upcoming Encounters Date Type Department Care Team (Late st Contact Info) Description 11/13/2024 2:15 PM EST Clinical Support [facility] CHC MED & PEDS [address] [place] [address] Tania Valenzuela, RN 505 [place] [address] documented as of this encounter Visit Diagnoses Not on filedocumented in this encounter Additional Health Concerns Assessment Noted Time PHQ-9 Depression Total Score: 1 12/31/19 23 10:22 AM EDT documented as of this encounter Care Teams Senior Web Analyst Relationship Specialty Start Date End Date Tmamie Liu MD [address] [place] [address] PCP - General Family Medicine 12/21/22 documented as of this encounter
--- OUTSIDE RECORDS SUMMARY | 2024-10-24 08:38 | XMS_ITS | Encounter Summary ---
Author Organization [employer] Address [address] [place] [address] 7 [place] [address] Care Team Providers Care Head Of Integrated Media Name Role Phone Tammie Liu MD Primary Care Provider Reason for Visit * Reason Comments Med Refill Encounter Details Date Type Department Care Team ([facility] st Contact Info) Description 07/03/2023 Refill [facility] CHC MED & PEDS [address] [place] [address] Tammie Liu MD 505 [place] [address] Social History Tobacco Use Types Packs/Day Years [...] Description 11/13/2024 2:15 PM EST Clinical Support [facility] CHC MED & PEDS [address] [place] [address] Tania Valenzuela, RN 505 [place] [address] documented as of this encounter Visit Diagnoses Not on filedocumented in this encounter Additional Health Concerns Assessment Noted Time PHQ-9 Depression Total Score: 1 12/31/19 23 10:22 AM EDT documented as of this encounter Care Teams Head Of Integrated Media Relationship Specialty Start Date End Date Tammie Liu MD 230 [place] [address] PCP - General Family Medicine 12/21/22 documented as of this encounter
--- OUTSIDE RECORDS SUMMARY | 2024-10-24 08:38 | XMS_ITS | Encounter Summary ---
Author Organization [employer] Address [address] [place] [address] 7 [place] [address] Care Team Providers Care Director Patient Accounting Name Role Phone Tammie Liu MD Primary Care Provider [phone] Reason for Visit * Reason Comments Med Refill Encounter Details Date Type Department Care Team ([facility] st Contact Info) Description 10/06/2024 Refill [facility] CHC MED & PEDS [address] [place], [place] [id number] Aubree Robin MD 505 [place] [address] Social History Tobacco Use Types Packs/Day Years [...] [facility] [address] [place] [address] Tania Valenzuela, FARA 505 [place] [address] documented as of this encounter Visit Diagnoses Not on filedocumented in this encounter Additional Health Concerns Assessment Noted Time PHQ-9 Depression Total Score: 0 03/14/20 24 10:37 AM EDT documented as of this encounter Care Teams Director Patient Accounting Relationship Specialty Start Date End Date Tammie Liu MD [address] [place] [address] PCP - General Family Medicine 12/21/22 documented as of this encounter
--- OUTSIDE RECORDS SUMMARY | 2024-10-24 08:38 | XMS_ITS | Encounter Summary ---
Author Organization [employer] Address [address] [place] [address] 7 [place] [address] Care Team Providers Care Business Strategist Name Role Phone Tammie Liu MD Primary Care Provider [phone] Reason for Visit * Reason Comments Med Change Request Encounter Details Date Type Department Care Team ([facility] st Contact Info) Description 07/03/2023 Refill C CHC MED & PEDS [address] [place] [address] Tammie Liu MD 505 [place] [address] Social History Tobacco Use Types Packs/Day Years [...] Description 11/13/2024 2:15 PM EST Clinical Support [facility] CHC MED & PEDS [address] [place] [address] Tania Valenzuela, RN 505 [place] [address] documented as of this encounter Visit Diagnoses Not on filedocumented in this encounter Additional Health Concerns Assessment Noted Time PHQ-9 Depression Total Score: 1 12/31/19 23 10:22 AM EDT documented as of this encounter Care Teams Business Strategist Relationship Specialty Start Date End Date Tammie Lui MD 230 [place] [address] PCP - General Family Medicine 12/21/22 documented as of this encounter
--- OUTSIDE RECORDS SUMMARY | 2024-10-24 08:39 | XMS_ITS | Encounter Summary ---
Author Organization [employer] Address [address] [place] [address] 7t [place] [address] Care Team Providers Care Submarine Diver Name Role Phone Tammie Liu MD Primary Care Provider [phone] Reason for Visit * Reason Onset Date Comments Nurse Triage 09/02/2024 Encounter Details Date Type Department Care Team ([facility] st Contact Info) Description 09/02/2024 Telephone [facility] MEDICINE [address] [place] [address] Tammie Liu MD 505 [place] [address] Nurse Triage Social History Tobacco Use Types Packs/Day Years [...] encounter Miscellaneous Notes * Telephone Encounter - Tashia Carey RN - 09/02/2024 10:48 AM EST Triage call Pt reports fever, chills, cough, bodyaches since 08/31/24. Pt denies wheezing, difficulty breathing. Pt fever has been hihg at 102.7 today it is 101.2. Pt has been taking tylenol which has been effective to lower fever. Pt has been taking cold and flu tablets as well as aleeve for body aches. [place] [facility] but, declines because of weather and doesn't want to leave thehouse. Home care is reviewed with Pt. Encouraged to increase liquids especially warm liquids to 6-8glasses daily. Rest, monitor fever, humidifer or warm steamy shower air for cough as well as honey 1-2 tsp. Pt agrees with home care reviewed and disposition. Pt will call again in a day or two if symptoms aren't subsiding. Protocol Used: Cough (Adult) Protocol-Based Disposition: Home Care Positive Triage Question: * Cough with cold symptoms (e.g., runny nose, postnasal drip, throat clearing) * All higher-acuity triage questions were negative Care Advice Discussed: * Reassurance and Education - Cough * Cough Medicines * Coughing Spells * Prevent Dehydration * Humidifier * Fever Medicines * Expected Course * Reasons To Call Back - Difficulty breathing - Cough lasts more than 3 weeks - Fever lasts more than 3 days - You become worse * Telephone Encounter - Aayush Cabrera - 09/02/2024 9:55 AM EST Symptoms: Fever, Cough, Body Aches Outcome: Schedule an appointment to be seen within 24 hours Reason: Caller denied all higher acuity questions The caller accepted this outcome. documented in this encounter Plan of Treatment Upcoming Encounters Date Type Department Care Team (Late st Contact Info) Description 11/13/2024 2:15 PM EST Clinical Support [facility] MED & PEDS [address] [place] [address] Tania Valenzuela, RN 505 [place] [address] documented as of this encounter Visit Diagnoses Not on filedocumented in this encounter Additional Health Concerns Assessment Noted Time PHQ-9 Depression Total Score: 0 03/14/20 24 10:37 AM EDT documented as of this encounter Care Teams Submarine Diver Relationship Specialty Start Date End Date Tammie Liu MD [address] [place] [address] PCP - General Family Medicine 12/21/22 documented as of this encounter
--- OUTSIDE RECORDS SUMMARY | 2024-10-24 08:39 | XMS_ITS | Encounter Summary ---
Author Organization [employer] Address [address] [place] [address] 7 [place] [address] Care Team Providers Care Rock Climbing Instructor Name Role Phone Tammie Liu MD Primary Care Provider Reason for Visit * Reason Comments Med Refill Encounter Details Date Type Department Care Team (Late st Contact Info) Description 2023 Refill [facility] MED & PEDS [address] [place] [address] Tammie Liu MD 505 [place] [address] Social History Tobacco Use Types Packs/Day Years Used Date Smoking Tobacco: Every Day Cigarettes Smokeless Tobacco: Never Alcohol Use Standard Drinks/Week Comments Never 0 (1 standard drink = 0.6 oz pur e alcohol) Depression Answer Date Recorded Patient Health Questionnaire-9 Score 1 12/30/2022 Depression Answer Date Recorded Patient Health Questionnaire-2 [...] 2:15 PM EST Clinical Support [facility] MED & PEDS 505 [place] [address] Tania Valenzuela, FARA 505 [place], [place] [id number] documented as of this encounter Visit Diagnoses Not on filedocumented in this encounter Additional Health Concerns Assessment Noted Time PHQ-9 Depression Total Score: 1 12/31/19 23 10:22 AM EDT documented as of this encounter Care Teams Rock Climbing Instructor Relationship Specialty Start Date End Date Tammie Liu MD [address] [place] [address] PCP - General Family Medicine 12/21/22 documented as of this encounter
--- OUTSIDE RECORDS SUMMARY | 2024-10-24 08:39 | XMS_ITS | Encounter Summary ---
Author Organization [employer] Address [address] [place] [address] 7 [place] [address] Care Team Providers Care Tractor Trailer Mechanic Name Role Phone Tammie Liu MD Primary Care Provider [phone] Reason for Visit * Reason Onset Date Comments Med Refill 03/01/2024 Encounter Details Date Type Department Care Team ([facility] st Contact Info) Description 03/01/2024 Refill [facility] MEDICINE [address] [place] [address] Tammie Liu MD 505 [place] [address] Lumbar spondylosis Social History Tobacco Use Types [...] Description 11/13/2024 2:15 PM EST Clinical Support [facility] CHC MED & PEDS [address] [place] [address] Tania Valenzuela, RN 505 [place] [address] documented as of this encounter Visit Diagnoses Diagnosis Lumbar spondylosis Lumbosacral spondylosis without myelopathy documented in this encounter Additional Health Concerns Assessment Noted Time PHQ-9 Depression Total Score: 1 12/31/19 23 10:22 AM EDT documented as of this encounter Care Teams Tractor Trailer Mechanic Relationship Specialty Start Date End Date Tammie Liu MD [address] [place] [address] PCP - General Family Medicine 12/21/22 documented as of this encounter
--- OUTSIDE RECORDS SUMMARY | 2024-10-24 08:39 | XMS_ITS | Encounter Summary ---
Author Organization [employer] Address [address] [place] [address] 7 [place] [address] Care Team Providers Care Repairer Wood Furniture Name Role Phone Tammie Liu MD Primary Care Provider [phone] Reason for Visit * Reason Onset Date Comments Appointment Request 09/02/2024 Encounter Details Date Type Department Care Team ([facility] Contact Info) Description 09/02/2024 Telephone [facility] MEDICINE [address] [place] [address] Tammie Liu MD 505 [place] [address] Appointment Request Social History Tobacco Use Types Packs/Day Years [...] encounter Miscellaneous Notes * Telephone Encounter - Aayush Cabrera - 09/02/2024 9:53 AM EST Tc from pt requesting to r/s appt for 09/03. Contact pt at [phone] documented in this encounter Plan of Treatment Upcoming Encounters Date Type Department Care Team (Late st Contact Info) Description 11/13/2024 2:15 PM EST Clinical Support [facility] CHC MED & PEDS [address] [place] [address] Tania Valenzuela, RN 505 [place] [address] documented as of this encounter Visit Diagnoses Not on filedocumented in this encounter Additional Health Concerns Assessment Noted Time PHQ-9 Depression Total Score: 0 03/14/20 24 10:37 AM EDT documented as of this encounter Care Teams Repairer Wood Furniture Relationship Specialty Start Date End Date Tammie Liu MD [address] [place] [address] PCP - General Family Medicine 12/21/22 documented as of this encounter
--- OUTSIDE RECORDS SUMMARY | 2024-10-24 08:39 | XMS_ITS | Encounter Summary ---
Author Organization [employer] Address [address] [place] [address] 7 [place] [address] Care Team Providers Care Lumber Inspector Name Role Phone Tammie Liu MD Primary Care Provider [phone] Reason for Visit * Reason Onset Date Comments Med Refill 06/07/2024 Encounter Details Date Type Department Care Team ([facility] Contact Info) Description 06/07/2024 Telephone [facility] CHC MED & PEDS [address] [place] [address] Tammie Liu MD 505 [place] [address] Med Refill Social History Tobacco Use Types [...] encounter Miscellaneous Notes * Telephone Encounter - Kaya Kirby - 06/07/2024 8:50 AM EDT TC from pt requesting medication refill. Medications needing refill : oxyCODONE (Roxicodone) 10 MG immediate release tablet To be sent to: [facility] - [place], [place] - [address] [place] [address] documented in this encounter Plan of Treatment Upcoming Encounters Date Type Department Care Team ([facility] st Contact Info) Description 11/13/2024 2:15 PM EST Clinical Support [facility] CHC MED & PEDS [address] [place] [address] Tania Valenzuela, RN 505 [place] [address] documented as of this encounter Visit Diagnoses Not on filedocumented in this encounter Additional Health Concerns Assessment Noted Time PHQ-9 Depression Total Score: 0 03/14/20 24 10:37 AM EDT documented as of this encounter Care Teams Lumber Inspector Relationship Specialty Start Date End Date Tammie Liu MD [address] [place] [address] PCP - General Family Medicine 12/21/22 documented as of this encounter
--- OUTSIDE RECORDS SUMMARY | 2024-10-24 08:39 | XMS_ITS | Encounter Summary ---
Author Organization [employer] Address [address] [place] [address] 7 [place] [address] Care Team Providers Care Lead Software Test Engineer Name Role Phone Tammie Liu MD Primary Care Provider [phone] Reason for Visit * Reason Comments Med Refill Encounter Details Date Type Department Care Team (Late st Contact Info) Description 04/20/2023 Refill [facility] MED & PEDS [address] [place] [address] Tammie Liu MD [address] [place] [address] Social History Tobacco Use Types Packs/Day Years [...] Description 11/13/2024 2:15 PM EST Clinical Support [facility] MED & PEDS [address] [place] [address] Tania Valenzuela, FARA 505 [place], [place] [phone] documented as of this encounter Visit Diagnoses Not on filedocumented in this encounter Additional Health Concerns Assessment Noted Time PHQ-9 Depression Total Score: 1 12/31/19 23 10:22 AM EDT documented as of this encounter Care Teams Lead Software Test Engineer Relationship Specialty Start Date End Date Tammie Liu MD [address] [place] [address] PCP - General Family Medicine 12/21/22 documented as of this encounter
--- OUTSIDE RECORDS SUMMARY | 2024-10-24 08:39 | XMS_ITS | Encounter Summary ---
Author Organization [email or web address] Address [address] [place] [address] 7 [place] [address] Care Team Providers Care Laminated Plastics Assembler And Gluer Name Role Phone Tammie Liu MD Primary Care Provider [phone] Reason for Visit * Reason Comments Need letter for jury duty Obesity Encounter Details Date Type Department Care Team ([facility] Contact Info) Description 09/25/2024 11:15 AM EST Office Visit [facility] CHC MED & PEDS [address] [place], [place] [address] Tammie Liu MD [address] [place] [address] Class 3 severe obesity due to excess calories with serious comorbidity and body mass index (BMI) of 45.0 to 49.9 in adult (CMS/HCC) (Primary Dx) Social History Tobacco Use Types Packs/Day Years [...] AM EDT documented as of this encounter Last Filed Vital Signs Vital Sign Reading [...] Mass Index 44.3 09/25/2024 11:09 AM EST documented in this encounter Progress Notes * Tammie Liu MD - 09/25/2024 11:15 AM EST Subjective Patient ID: Susana Hi is a 44 y.o. female who presents for Need letter for jury duty and Obesity. 44 y.o. who was scheduled to f/up after switching Wegovy for Zepbound, given she had plateau'd. Shereports she has tried to reach out to insurance to see why they didn't approve the medication change, Per our records her [facility] was [facility] to [facility] hence it was declined. Per patient she hasregular [facility] and that it was being approved by medicare not [employer]. Unclear. - also needs a letter stating she has disabilities, her son who is her FRAME ALIGNER was called for jury duty. Review of Systems Constitutional: Negative for appetite change, fatigue and fever. HENT: Negative for congestion, postnasal drip and rhinorrhea. Eyes: Negative for discharge and redness. Respiratory: Negative for apnea, cough, chest tightness and shortness of breath. Cardiovascular: Negative for chest pain. Gastrointestinal: Negative for abdominal pain. Endocrine: Negative for polyphagia. Genitourinary: Negative for difficulty urinating, dysuria and urgency. Musculoskeletal: Negative for arthralgias. Neurological: Negative for dizziness, light-headedness, numbness and headaches. Hematological: Negative for adenopathy. Does not bruise/bleed easily. Objective Visit Vitals BP 136/84 (BP Location: Right arm, Patient Position: Sitting, BP Cuff Size: Large adult) Pulse 84 Temp 97.2 ??F (36.2 ??C) (Oral) Resp 20 Ht 5' 5 (1.651 m) Wt 266 lb 3.2 oz (121 kg) SpO2 98% BMI 44.30 kg/m?? Smoking Status Every Day BSA 2.36 m?? Physical Exam Constitutional: General: She is not in acute distress. Appearance: She is obese. She is not ill-appearing. HENT: Head: Normocephalic and atraumatic. Nose: No congestion. Pulmonary: Effort: Pulmonary effort is normal. No respiratory distress. Breath sounds: Normal breath sounds. Musculoskeletal: Cervical back: Normal range of motion. Neurological: General: No focal deficit present. Mental Status: She is alert. Psychiatric: Mood and Affect: Mood normal. Assessment/Plan Problem List Items Addressed This Visit Class 3 severe obesity with serious comorbidity and body mass index (BMI) of 45.0 to 49.9 in adult (CMS/[facility]) - Primary Initial weight: 327 lbs, current weight 266 lbs , wt loss 61 lbs. Target weight 240 for BMI of <40. At this moment, will need to wait on patient to change insurance/review with insurance before trying again. Could be necessary to continue wegovy if they will not approve for weight loss but if they do to reduce cardiovascular side effects. documented in this encounter Miscellaneous Notes * Assessment & Plan Note - Tammie Liu MD - 09/25/2024 1:31 PM EST Associated Problem(s): Class 3 severe obesity with serious comorbidity and body mass index (BMI) of45.0 to 49.9 in adult ([facility]) Initial weight: 327 lbs, current weight 266 lbs , wt loss 61 lbs. Target weight 240 for BMI of <40. At this moment, will need to wait on patient to change insurance/review with insurance before trying again. Could be necessary to continue wegovy if they will not approve for weight loss but if they do to reduce cardiovascular side effects. documented in this encounter Plan of Treatment Upcoming Encounters Date Type Department Care Team (Late st Contact Info) Description 11/13/2024 2:15 PM EST Clinical Support [facility] CHC MED & PEDS [address] [place] [address] Tania Valenzuela, RN 505 [place] [address] documented as of this encounter Visit Diagnoses Diagnosis Class 3 severe obesity due to excess calories with serious comorbidity and body mass index (BMI) of 45.0 to 49.9 in adult ([facility])- Primary documented in this encounter Additional Health Concerns Assessment Noted Time PHQ-9 Depression Total Score: 0 03/14/20 24 10:37 AM EDT documented as of this encounter Care Teams Laminated Plastics Assembler And Gluer Relationship Specialty Start Date End Date Tammie Liu MD [address] [place] [address] PCP - General Family Medicine 12/21/22 documented as of this encounter
--- OUTSIDE RECORDS SUMMARY | 2024-10-24 08:39 | XMS_ITS | Encounter Summary ---
Author Organization [employer] Address [address] [place] [address] 7t [place] [address] Care Team Providers Care Crown Presser Name Role Phone Tammie Liu MD Primary Care Provider [phone] Encounter Details Date Type Department Care Team (Latest Contact Info) Description 09/25/2024 Travel Social History Tobacco Use Types Packs/Day [...] Upcoming Encounters Date Type Department Care Team ([facility] st Contact Info) Description 11/13/2024 2:15 PM EST Clinical Support [facility] MED & PEDS [address] [place] [address] Tania Valenzuela, RN [address] [place] [address] documented as of this encounter Visit Diagnoses Not on filedocumented in this encounter Additional Health Concerns Assessment Noted Time PHQ-9 Depression Total Score: 0 03/14/20 24 10:37 AM EDT documented as of this encounter Care Teams Crown Presser Relationship Specialty Start Date End Date Tammie Liu MD [address] [place] [address] PCP - General Family Medicine 12/21/22 documented as of this encounter
--- OUTSIDE RECORDS SUMMARY | 2024-10-24 08:39 | XMS_ITS | Encounter Summary ---
Author Organization [employer] Address [address] [place] [address] 7 [place] [address] Care Team Providers Care Homebound Teacher Name Role Phone Demetrio Anna MD Primary Care Prov ider Tammie Liu MD Primary Care Provider [phone] Reason for Visit * Reason Onset Date Comments triage 12/07/2022 Encounter Details Date Type Department Care Team (Late st Contact Info) Description 12/07/2022 Telephone [facility] MEDICINE [address] [place] [address] Demetroi Anna MD [address] [place] [address] triage Social History Tobacco Use Types Packs/Day Years Used Date Smoking Tobacco: Every Day Cigarettes Smokeless Tobacco: Never Comments Unknown Sex and Gender Information Value Date Recorded Sex Assigned at Female 07/18/2022 10:28 AM EDT Legal Sex Female 10:28 AM EDT Gender Identity Female 07/18/2022 10:28 AM EDT Sexual Orientation Lesbian or Schneider 07/18/2022 10 :28 AM EDT documented as of this encounter Miscellaneous Notes * Telephone Encounter - Scar Fofana RN - 12/08/2022 9:15 AM EDT Please review below and contact pt to r/s derm appt. Thank you. * Telephone Encounter - Yesenia Durant RN - 12/07/2022 4:55 PM EDT Called pt to triage, spoke to pt. Pt declines triage at this time and is calling today to reschedule derm appt with Dr. Brady that was cancelled by the center. Pt reports persistent rash on neck and no worsening or new concerns. Will task to [place] [facility] to follow up and reschedule appt as appropriate. Pt understands and agrees with plan. * Telephone Encounter - Saurav Sam - 12/07/2022 4:06 PM EDT Symptom: Rash or Redness on One Body Area Only Outcome: Schedule an urgent appointment (within 4 hours) or talk to a nurse or provider soon Reason: Painful The caller accepted this outcome documented in this encounter Plan of Treatment Upcoming Encounters Date Type Department Care Team (Late st Contact Info) Description 11/13/2024 2:15 PM EST Clinical Support [facility] MED & PEDS [address] [place] [address] Tania Valenzuela, RN [address] [place] [address] documented as of this encounter Visit Diagnoses Not on filedocumented in this encounter Care Teams Homebound Teacher Relationship Specialty Start Date End Date Demetrio Anna MD [address] [place] [address] PCP - General Internal Medicine 01/21/20 12/20/22 Tammie Liu MD [address] [place] [address] PCP - General Family Medicine 12/21/22 documented as of this encounter
--- OUTSIDE RECORDS SUMMARY | 2024-10-24 08:39 | XMS_ITS | Encounter Summary ---
Author Organization [employer] Address [address] [place] [address] 7 [place] [address] Care Team Providers Care Life Enrichment Manager Name Role Phone Tammie Liu MD Primary Care Provider [phone] Encounter Details Date Type Department Care Team (Late Contact Info) Description 05/25/2023 Telephone [facility] MED & PEDS [address] [place], [place] [phone] Tammie Liu MD [address] [place], [place] [phone] Social History Tobacco Use Types Packs/Day Years [...] Description 11/13/2024 2:15 PM EST Clinical Support [facility]ED[facility] [address] [place] [address] Tania Valenzuela, FARA [address] [place], [place] [phone] documented as of this encounter Visit Diagnoses Not on filedocumented in this encounter Additional Health Concerns Assessment Noted Time PHQ-9 Depression Total Score: 1 12/31/19 10:22 AM EDT documented as of this encounter Care Teams Life Enrichment Manager Relationship Specialty Start Date End Date Tammie Liu MD [address] [place] [address] PCP - General Family Medicine 12/21/22 documented as of this encounter
--- OUTSIDE RECORDS SUMMARY | 2024-10-24 08:39 | XMS_ITS | Encounter Summary ---
Author Organization [employer] Address [address] [place] [address] 7 [place] [address] Care Team Providers Care Associate Embalmer/Funeral Director Name Role Phone Tammie Liu MD Primary Care Provider [phone] Reason for Visit * Reason Onset Date Comments Reschedule 02/01/2024 Encounter Details Date Type Department Care Team ([facility] st Contact Info) Description 02/01/2024 Telephone [facility] MEDICINE [address] [place] [address] Tammie Liu MD [address] [place] [address] Reschedule Social History Tobacco Use Types Packs/Day Years [...] encounter Miscellaneous Notes * Telephone Encounter - My Blum - 02/01/2024 11:13 AM EDT Tc from pt requesting r/s CARDIAC CATHETERIZATION TECHNICIAN appt documented in this encounter Plan of Treatment Upcoming Encounters Date Type Department Care Team (Late st Contact Info) Description 11/13/2024 2:15 PM EST Clinical Support [facility] MED & PEDS [address] [place] [address] Tania Valenzuela, RN [address] [place] [address] documented as of this encounter Visit Diagnoses Not on filedocumented in this encounter Additional Health Concerns Assessment Noted Time PHQ-9 Depression Total Score: 1 12/31/19 23 10:22 AM EDT documented as of this encounter Care Teams Associate Embalmer/Funeral Director Relationship Specialty Start Date End Date Tammie Liu MD [address] [place] [address] PCP - General Family Medicine 12/21/22 documented as of this encounter
--- OUTSIDE RECORDS SUMMARY | 2024-10-24 08:40 | XMS_ITS | Encounter Summary ---
Author Organization [employer] Address [address] [place] [address] 7 [place] [address] Care Team Providers Care Candy Decorator Name Role Phone Tammie Liu MD Primary Care Provider [phone] Reason for Visit * Reason Onset Date Comments Medication Question 02/28/2024 Encounter Details Date Type Department Care Team ([facility] Contact Info) Description 02/28/2024 Telephone [facility] MED & PEDS [address] [place] [address] Tammie Liu MD [address] [place] [address] Medication Question Social History Tobacco Use Types Packs/Day Years [...] Telephone Encounter - Lina Garcia RN - 03/01/2024 3:05 PM EDT [employer] message sent to pt. * Telephone Encounter - Kaya Kirby - 02/28/2024 10:47 AM EDT TC from pt requesting a call back to clarify Wegovy medications . States was having issue with her insurance and was finally able to get medication on Monday for Wegovy 1 MG/0.5ML but pt states received a message on my chart with a new dose increase. Pt is a little confused on what to do. documented in this encounter Plan of Treatment Upcoming Encounters Date Type Department Care Team (Late st Contact Info) Description 11/13/2024 2:15 PM EST Clinical Support [facility] MED & PEDS [address] [place] [address] Tania Valenzuela, RN [address] [place] [address] documented as of this encounter Visit Diagnoses Not on filedocumented in this encounter Additional Health Concerns Assessment Noted Time PHQ-9 Depression Total Score: 1 12/31/19 23 10:22 AM EDT documented as of this encounter Care Teams Candy Decorator Relationship Specialty Start Date End Date Tammie Liu MD [address] [place] [address] PCP - General Family Medicine 12/21/22 documented as of this encounter
--- OUTSIDE RECORDS SUMMARY | 2024-10-24 08:40 | XMS_ITS | Encounter Summary ---
Author Organization [employer] Address [address] [place] [address] 7 [place] [address] Care Team Providers Care Virtual Reality Specialist Name Role Phone Tammie Liu MD Primary Care Provider [phone] Reason for Visit * Reason Onset Date Comments Call Back Request 02/08/2024 Encounter Details Date Type Department Care Team ([facility] Contact Info) Description 02/08/2024 Telephone [facility] MEDICINE [address] [place] [address] Tammie Liu MD [address] [place] [address] Call Back Request Social History Tobacco Use Types Packs/Day [...] * Telephone Encounter - My Blum - 02/08/2024 3:47 PM EDT Tc from pt requesting r/s CLINICAL INFORMATICIST appt documented in this encounter Plan of Treatment Upcoming Encounters Date Type Department Care Team (Late st Contact Info) Description 11/13/2024 2:15 PM EST Clinical Support [facility] MED & PEDS [address] [place] [address] Tania Valenzuela, RN [address] [place] [address] documented as of this encounter Visit Diagnoses Not on filedocumented in this encounter Additional Health Concerns Assessment Noted Time PHQ-9 Depression Total Score: 1 12/31/19 23 10:22 AM EDT documented as of this encounter Care Teams Virtual Reality Specialist Relationship Specialty Start Date End Date Tammie Liu MD [address] [place] [address] PCP - General Family Medicine 12/21/22 documented as of this encounter
[2024-10-24 08:45] VITALS: BMI 45.0
[2024-10-24 08:51] VITALS: BP 150/68; PULSE 85; RESP 16; TEMP 36.7; O2SAT 99
--- NOTE | 2024-10-24 08:51 | MHC.SHP ---
Pre-Procedural Eval Section A - 24 Hr Update-Section A only Date of Service: 10/24/24 Section B - Complete if H&P > 30 days Chief Complaint: screening Details of Present Illness: sister with colon cance r Relevant Family History (Specify if Yes): Yes Relevant Social History: Tobacco Use Present Medications: see Short Stay Collaborative assessment Medical History: Significant History (Myofascial pain syndrome Overweight Bone spur) History of Previous Operations: Relevant previous surgery/procedure and date(s) (History of carpal tunnel release (~07/2024) S/P rotator cuff repair H/O section) Allergies: Allergies Allergy/AdvReac Type Severity Reaction Status Date / Time Penicillins [PCN] Allergy Mild HIVES Verified 10/07/24 14:35 cephalexin [Keflex] Allergy Unknown hives Verified 10/07/24 14:35 fluconazole [Diflucan] Allergy Unknown n/v Verified 10/07/24 14:35 acetaminophen AdvReac Intermediate Bruising Verified 10/07/24 14:35 ibuprofen AdvReac Intermediate Bruising Verified 10/07/24 14:35 Review of Systems Sugical H&P ROS: Negative: Constitution, Cardiovascular, Respiratory, Neurological, Psychiatric, Hem-Onc, Allergic/Immunologic, Gastrointestinal, Genitourinary, Musculoskeletal, Integumentary, Endocrine and Eyes/Ears/Nose/Throat Exam Surgical H&P Exam: Normal: HEENT, Normal: Heart, Normal: Lungs, Normal: Extremities, Normal: Abdomen, Normal: Skin and Normal: Neurological Plan Diagnosis/Plan: Unchanged I have reviewed the history and physical and performed a pertinent physical examination on my patient. No changes have occurred unless specified. Time Spent With Patient Time: Total time managing care of this patient today ____ minutes.
[2024-10-24 08:57] LABS: UPreg QC Valid YES; Urine Pregnancy NEGATIVE (NEGATIVE)
[2024-10-24] MEDS: Lactated Ringers 1,000 ML 100 ML IVCONT (09:05)
--- NOTE | 2024-10-24 09:35 | P.CONAN_ITS ---
[facility] Active Problems Active Problems: All Active Problems Vertebrogenic pain syndrome (Acute) Morbid obesity with BMI of 50.0-59.9, adult (Acute) Chronic thoracic back pain (Acute) Myofascial pain syndrome (Acute) Lumbar spondylosis (Acute) Traumatic coccydynia (Acute) Overweight (Acute) S/P rotator cuff repair (Acute) Past Medical History Medical History Myofascial pain syndrome Overweight Bone spur Family History Family History (Updated 10/07/24 @ 14:41 by KEV Mederos) Sister GBS (Guillain [place] syndrome) Sister Cervical cancer Sister Colon cancer Family history of problems with anesthesia: No Surgical History Surgical History History of carpal tunnel release (~07/2024) S/P rotator cuff repair H/O section History of Problems with Anesthesia: No Social History Social History Alcohol intake: never Patient Tobacco Use Status: Current everyday Tobacco user Tobacco use type: Cigarette Cigarette Packs Per Day: 0.5 Use of substances other than those prescribed or required for medical reasons: No Substance Use Type: Caffiene Have you been hit, kicked, punched, or otherwise hurt by someone within the past year? If so, by whom?: No Are you DNR?: No Advance Directives: No Advance Directives Information Provided: Yes Recently lost weight without trying: No Meds Allergies Allergy/AdvReac Type Severity Reaction Status Date / Time Penicillins [PCN] Allergy Mild HIVES Verified 10/07/24 14:35 cephalexin [Keflex] Allergy Unknown hives Verified 10/07/24 14:35 fluconazole [Diflucan] Allergy Unknown n/v Verified 10/07/24 14:35 acetaminophen AdvReac Intermediate Bruising Verified 10/07/24 14:35 ibuprofen AdvReac Intermediate Bruising Verified 10/07/24 14:35 Active Medications: Current Medications Lactated Ringer's (Lr) 1,000 mls @ 100 mls/hr IVCONT .Q10H LY Last Admin: 10/24/24 09:05 Dose: 100 mls/hr Naloxone HCl (Naloxone Hcl 0.4 Mg/Ml Vial) 0.04 mg IVPUSH Q5M PRN PRN Reason: Excessive sedation or RR < 8 Home Medications ?Medication ?Instructions ?Recorded ?Confirmed ?Last Taken ?Type albuterol sulfate 90 mcg/actuation 2 puff inhalation QID PRN 12/06/21 12/06/21 Unknown History aerosol inhaler (ProAir HFA) chlorthalidone 25 mg tablet 25 mg PO DAILY 12/06/21 12/06/21 Unknown History lisinopril 20 mg tablet 20 mg PO DAILY 12/06/21 12/06/21 Unknown History omeprazole 20 mg capsule,delayed 20 mg PO DAILY 12/06/21 12/06/21 Unknown History release sumatriptan succinate 50 mg tablet 50 mg PO Q2-4H PRN 12/06/21 12/06/21 Unknown History fluticasone propionate 110 2 puff inhalation 07/24/23 Unknown History mcg/actuation HFA aerosol inhaler (Flovent HFA) fluticasone propionate 50 1 spray intranasal QAM 07/24/23 Unknown History mcg/actuation nasal spray,suspension naloxone 4 mg/actuation nasal spray intranasal 07/24/23 Unknown History oxycodone 10 mg tablet 10 mg PO Q6H PRN severe pain 07/24/23 Unknown History alprazolam 0.5 mg tablet mg PO BID PRN 10/07/24 Unknown History amitriptyline 10 mg tablet mg PO DAILY 10/07/24 Unknown History atorvastatin 40 mg tablet mg PO DAILY 10/07/24 Unknown History budesonide 90 mcg/actuation breath inhalation 10/07/24 Unknown History activated powder inhaler (Pulmicort Flexhaler) guanfacine 1 mg tablet,extended mg PO DAILY 10/07/24 Unknown History release 24 hr Exam Height,Weight and Vital Signs: Height 5 ft 5 in Weight 122.651 kg Last Vital Signs Temp 98.1 F 10/24/24 08:51 Pulse 85 10/24/24 08:51 Resp 16 10/24/24 08:51 BP 150/68 H 10/24/24 08:51 Pulse Ox 99 10/24/24 08:51 O2 Del Method Room Air 10/24/24 08:51 Pertinent Lab Results Pertinent Lab Results: Laboratory Tests 10/24/24 08:45 Urine Test NEGATIVE Airway Mallampati Class: III TM Dist: >3cm Neck ROM: Full Denture: Upper Assessment and Plan Assessment Anesthesia Assessment: Anesthesia Plan Discussed and Chart Reviewed Final Anesthetic Review Family History of Problems with Anesthesia: No History of Problems with Anesthesia: No NPO: Yes ASA Class: III Final Preanesthetic Review: No Changes in Pt Med Stat, Meds/Allgs Chart Reviewed, Consent Obtained/Reviewed, Anes Risks/Benef Reviewed and DNR Form (If Appl.) Patient Risk: Intermediate Procedure Risk: Low Anesthetic Plan Anesthetic Plan: TIVA Disposition: Standard PACU
--- NOTE | 2024-10-24 09:38 | HO.OPN-COLON ---
Colonoscopy Operative Note Operative Note Date of Service: 10/24/24 Narrative: Operative Information Procedure Description: Colonoscopy Indication: screening and FH of CRC in sister Anesthesia: MAC COLONOSCOPY Instrument: Olympus variable stiffness pediatric scope 190L Colonoscopy Monitoring: Vital signs and clinical assessment, continuous EKG monitoring, Pulse oximetry, Carbon Dioxide monitoring and blood pressure monitoring were done throughout the procedure. Colon withdrawal time was 12 minutes. Procedure: The patient was placed in the left lateral decubitis position and pre-procedure medications were administered. After a digital rectal examination of the ano-rectum, the video colonoscope was inserted into the rectum and advanced through the colon to the cecum/TI. The colonoscope was slowly withdrawn in a retrograde panoramic fashion and the colon mucosa was carefully examined including a retroflexed view of the rectum. Findings and interventions are described below. Procedure Difficulty: easy Findings: Terminal Ileum-normal Cecum:normal Right sided retrofelxion- normal Ascending Colon: normal Transverse Colon - 8-10 mm sessile polyp removed with cold snare Descending Colon:normal Sigmoid Colon: normal Rectum: Retroflexion with small internal hemorrhoids seen, grade I, 10 mm sessile polyp removed with cold snare Anorectum - normal Intervention: cold snare Colon preparation: Pella Bowel Preparation Scale Right colon; 2 Transverse colon: 2 Left colon; 2 (0 = Unprepared colon segment with mucosa not seen due to solid stool that cannot be cleared. 1 = Portion of mucosa of the colon segment seen, but other areas of the colon segment not well seen due to staining, residual stool and/or opaque liquid. 2 = Minor amount of residual staining, small fragments of stool and/or opaque liquid, but mucosa of colon segment seen well. 3 = Entire mucosa of colon segment seen well with no residual staining, small fragments of stool or opaque liquid) Impression and Post Procedure Diagnosis: colon polyps x 2 internal hemorrhoids Plan: High fiber diet leaflet Avoid straining at stool, epsom salts and sitz bath, anusol supps or cream Repeat Colonoscopy in 5 years or earlier if clinically indicated Above findings were reviewed with the patient and relevant handouts were provided if indicated.
[2024-10-24 09:44] VITALS: BP 96/65; PULSE 80; RESP 15; TEMP 36.1; O2SAT 97
[2024-10-24 09:59] VITALS: BP 127/76; PULSE 74; RESP 16; TEMP 36.3; O2SAT 97
== END 2024-10-24 10:43 | disposition home or self-care (01) ==
PROVIDERS: Nurse Practitioner; PCP Family Medicine; Visit Provider Internal Medicine Gastroenterology
PROC: 0DJD8ZZ Inspection of Lower Intestinal Tract, Via Natural or Artificial Opening Endoscopic (ICD-10-PCS; CPT 45378; principal; 2024-10-24 11:40)
DX: Z12.11 Encounter for screening for malignant neoplasm of colon (principal); Z80.0 Family history of malignant neoplasm of digestive organs; D12.3 Benign neoplasm of transverse colon; K62.1 Rectal polyp; K64.0 First degree hemorrhoids; M79.18 Myalgia, other site; I10 Essential (primary) hypertension; E66.3 Overweight; G89.29 Other chronic pain; M54.9 Dorsalgia, unspecified; Z68.42 Body mass index [BMI] 45.0-49.9, adult; Z88.0 Allergy status to penicillin; Z88.1 Allergy status to other antibiotic agents; Z88.6 Allergy status to analgesic agent; Z88.8 Allergy status to other drugs, medicaments and biological substances; Z98.890 Other specified postprocedural states; F17.210 Nicotine dependence, cigarettes, uncomplicated
CPT/HCPCS: 45385; 81025; 88305; J2003; J2704

== ENCOUNTER 2025-04-07 14:36 | Outpatient (REF) | payer MEDICARE, MEDICAID, SELFPAY ==
--- NOTE | ~2025-04-07 | US_ITS ---
EXAMINATION: US TRIPLEX LOWER EXTREMITY, BILATERAL CLINICAL INFORMATION: Left-sided pain and redness, COMPARISON: None available. TECHNIQUE: Color-flow triplex imaging with spectral analysis and compression Doppler were performed on the bilateral lower extremities. FINDINGS: Respiratory variation, normal compression and augmented flow are noted throughout the bilateral lower extremities. The visualized common femoral vein, superficial femoral vein, profunda femoral vein, popliteal vein and posterior tibial venous segments show no evidence of deep venous thrombosis bilaterally. Left peroneal vein is not demonstrated. There is minimal fluid in a small right Rothman's cyst. US/US venous duplex LE BI IMPRESSION: No evidence of deep venous thrombosis involving the bilateral lower extremities. Electronically signed by: Hunter Barksdale MD 04/07/2025 03:37 PM EDT
--- OUTSIDE RECORDS SUMMARY | 2025-04-07 15:27 | XMS_ITS | Encounter Summary ---
Author Organization [employer] Address [address] [facility] 7t [place] [address] Care Team Providers Care Tire Duster Name Role Phone Tammie Liu MD Primary Care Provider [phone] Reason for Visit * Reason Onset Date Comments Prior Authorization 12/27/2023 Encounter Details Date Type Department Care Team ([facility] st Contact Info) Description 12/27/2023 Telephone [facility] MEDICINE [address] [place] [address] Tammie Liu MD [address] [place] [address] Prior Authorization Social History Tobacco Use Types [...] Miscellaneous Notes * Telephone Encounter - Osbaldo Renee - 12/27/2023 4:38 PM EDT Tc from pt stating Semaglutide-Weight Management (Wegovy) 0.25 MG/0.5ML solution auto-injector needs a prior authorization. documented in this encounter Plan of Treatment Upcoming Encounters Date Type Department Care Team (Late st Contact Info) Description 04/18/2025 3:30 PM EDT Office Visit [facility] MED & PEDS [address] [place] [address] Tammie Liu MD [address] [place] [address] 05/15/2025 10:30 AM EDT Clinical Support [facility] MED [facility] PEDS [address] [place] [address] Tania Valenzuela, FARA [address] [place] [address] documented as of this encounter Visit Diagnoses Not on filedocumented in this encounter Additional Health Concerns Assessment Noted Time PHQ-9 Depression Total Score: 1 12/31/19 23 10:22 AM EDT documented as of this encounter Care Teams Tire Duster Relationship Specialty Start Date End Date Tammie Liu MD [address] [place] [address] PCP - General Family Medicine 12/21/22 documented as of this encounter
--- OUTSIDE RECORDS SUMMARY | 2025-04-07 15:27 | XMS_ITS | Clinical Summary ---
Author Organization [facility] Address [address] [place] [phone] Phone Care Team Providers Care Pest Management Supervisor Name Role Phone Tammie Liu MD Primary Care Provider [phone] Allergies Active Allergy Reactions Criticality Noted Date Comments Acetaminophen Bruising 08/05/2024 NOT SURE IF TYLENOL CAUSES BRUISING Cephalexin Hives Low 02/07/2022 Other reaction(s): nausea/itch Diclofenac 06/26/2024 GI upset Ibuprofen Bruising 08/05/2024 Penicillins Anaphylaxis,Hives,Na usea And Vomiting,Rash High 04/28/2015 Penicillin G: Other reaction(s): Hives, vomiting, shortness of breath, Hives/Urticaria Medications semaglutide (Wegovy) 1.7 mg/0.75 mL injection pen Inject under the skin. 4 Active atorvastatin (LIPITOR) 40 mg tablet Take 1 tablet (40 mg total) by mouth 1 (one) time each day in the morning. 4 Active albuterol HFA (Ventolin HFA) 90 mcg/actuation inhaler Inhale 2 puffs by mouth every 4 (four) hours if needed. 3 Active chlorthalidone (HYGROTON) 25 mg tablet Take 1 tablet (25 mg total) by mouth 1 (one) time each day in the morning. 3 Active amitriptyline (ELAVIL) 10 mg tablet Take 1 tablet (10 mg total) by mouth at bedtime. 3 Active SUMAtriptan (IMITREX) 50 mg tablet Take 1 tablet (50 mg total) by mouth 1 (one) time if needed. 9 Active acetaminophen (TYLENOL) 500 mg tablet Take 2 Tablets by mouth. 3 Active guanFACINE (TENEX) 1 mg tablet TAKE ONE TABLET EVERY MORNING FOR ANXIETY Active lisinopriL (PRINIVIL,ZESTR IL) 20 mg tablet TAKE ONE TABLET EVERY [...] Max Daily Amount: 20 mg 6 tablet 4 Active Active Problems Problem Noted Date Diagnosed [...] 2 weeks. Factor 5 Leiden mutation, heterozygous (CMS/HCC V24) 09/05/2022 Hep C w/o coma, chronic (CMS/HCC V24, CMS/HCC V2 8) 09/05/2022 Migraine with aura 09/05/2022 Mood disorder (CMS/HCC V24) 09/05/2022 Nicotine use disorder 09/05/2022 Immunizations Name Administration Dates Next Due Hepatitis A Adult (Havrix; V aqta) 19yo and older 01/10/2020,07/11/2019 Hepatitis B (Nbjjcyi-R-Eiiym , Recombivax HB-Adult) 19yo and older 01/10/2020,11/11/2019,07/11/2019 Tdap Tetanus diptheria acell ular pertussis (Boostrix; Adacel) 7yo and older 01/10/2020 Surgical History Surgery Date Site/Laterality Comments CHOLECYSTECTOMY 2008 PROCEDURE: CT CHOLECYSTECTOMY SECTION 1997 and 2010 PROCEDURE: HISTORICAL SHOULDER OPEN ROTATOR CUFF REPAIR Right X2 TENDON MANIPULATION Right SHOULDER CARPAL TUNNEL RELEASE Bilateral Medical History Medical History Date Comments Factor 5 Leiden mutation, he terozygous (CMS/HCC V24) DX:Factor 5 Leiden mutation, heterozygous (HCC) Family [...] = 0.6 oz pur e alcohol) MAX Comments No Sex and Gender Information Value Date Recorded Sex Assigned at Female 08/07/2024 3:22 AM EST Legal Sex Female 2:02 PM EST Gender Identity Female 08/07/2024 3:22 AM EST Sexual Orientation Lesbian or Schneider 08/07/2024 3: 22 AM EST Obstetrics History Last Filed Vital Signs Vital Sign Reading Time Taken Comments Blood Pressure 106/69 08/14/2024 12:56 PM EST Pulse 80 08/14/2024 12:56 PM EST Temperature 36.4 C (97.6 F) 08/14/2024 12:15 PM EST Respiratory Rate 20 08/14/2024 12:15 PM EST [...] 5 Years) and At-Risk Patients (6 to 49 Years) (1 of 2 - PCV) 1998 Cervical Cancer Screening: P ap Smear 2000 Colorectal Cancer Screening: Colonoscopy 08/28/2022 Hepatitis C Screening 08/28/2022 Medicare Annual Wellness Visit 08/28/2022 Social Influencers of Health Screening 08/28/2022 Hypertension/CHF/CAD Annual BMP Blood Test 2024 COVID-19 Vaccine (3 - 2023-2 5 season) 2024 08/04/2021, 07/07/2021 Depression Screening 09/18/2024 Breast Cancer Screening 02/10/2025 02/10/2023 Influenza Vaccine (#1) 2025 Cholesterol Screening (Lipid Panel) 01/28/2028 01/27/2023 DTaP,Tdap,and [...] patient's age to complete this topic Meningococcal B Vaccine Aged Out No l onger eligible based on patient's age to complete this topic RSV Immunization Patients Under 20 months Aged Out No longer eligible b ased on patient's age to complete this topic Varicella Vaccines Aged Out No longer eligible based on patient's age to complete this topic Insurance MEDICARE [place]ICAID - [place] Care Teams Pest Management Supervisor Relationship Specialty Start Date End Date Tammie Liu MD [address] [place] [address] PCP - General Family Medicine 08/06/24
--- OUTSIDE RECORDS SUMMARY | 2025-04-07 15:27 | XMS_ITS | Clinical Summary ---
Author Organization [facility] Address [address] [place] [address] [address] [place] [phone] Phone Care Team Providers Care General Sales Manager Name Role Phone Demetrio Anna MD Primary Care Prov ider Social History Tobacco Use Types Packs/Day Years Used Date Smoking Tobacco: Never Assessed Education Answer Date Recorded Are you interested in more education? Not on messi e 01/13/2023 Are you concerned about learning? Not on file 01/13/2023 No 01/13/2023 No 01/13/2023 Digital Access Answer Date Recorded No 02/14/2023 No 02/14/2023 Reliable internet access at home? Not on file 02/14/2023 Device with a working camera? Not on file Comments Unknown Sex and Gender Information Value Date Recorded Sex Assigned at Not on file Legal Sex Female 8:11 AM EST Gender Identity Not on file Sexual Orientation Not on file Last Filed Vital Signs Vital Sign Reading Time Taken Comments Blood Pressure - - Pulse - - Temperature - - Respiratory Rate - - Oxygen Saturation - - Inhaled Oxygen Concentration - - Weight 132.5 kg (292 lb) 12/01/2020 2:13 PM EDT Height 165.1 cm (5' 5 ) 12/01/2020 2:13 PM EDT Body Mass Index 48.59 12/01/2020 2:13 PM EDT Plan of Treatment Not on file Medical Devices Not on file Insurance [facility] C3 ACO C3 ACO C3 ACO C3 ACO C3 ACO C3 ACO C3 ACO [facility] [address] [place] [address] [place] [address] C3 ACO [employer] Care Teams General Sales Manager Relationship Specialty Start Date End Date Demetrio Anna MD [address] [place] [address] PCP - General 10/01/20 Additional Source Comments The information contained in this document represents components of the legal health record. It is not the complete legal health record.[facility]
--- OUTSIDE RECORDS SUMMARY | 2025-04-07 15:27 | XMS_ITS | Encounter Summary ---
Author Organization [facility] Address [address] [place] [address] Care Team Providers Care Sealer Operator Name Role Phone Community, Pcp Primary Care Provider Cassi Russell MD Primary Care Provider Martha lynn Encounter Details Date Type Department Care Team Description 06/11/2019 [employer] Report Medical Records [address] [place] [id number] Diana Armstrong Social History Tobacco Use Types Packs/Day Years Used Date Smoking Tobacco: Never Assessed Sex Assigned at Date Recorded Not on file documented as of this encounter Plan of Treatment Not on file documented as of this encounter Visit Diagnoses Not on filedocumented in this encounter Care Teams Sealer Operator Relationship Specialty Start Date End Date Community, Pcp PCP - General Internal Medicine 06/13/19 07/22/19 Cassi Wheeler MD PCP - General Family Practice 07/23/19 documented as of this encounter
== END 2025-04-07 14:37 | disposition home or self-care (01) ==
LOC: HO.US 14:36
PROVIDERS: PCP Family Medicine; Visit Provider Family Medicine
DX: R22.42 Localized swelling, mass and lump, left lower limb (principal)
CPT/HCPCS: 93970

== ENCOUNTER → 2025-04-07 14:45 | Outpatient (BNV) | payer MEDICARE, MEDICAID, SELFPAY | PROVIDERS: PCP Family Medicine; Visit Provider Radiology Diagnostic Radiology | DX: R22.42 Localized swelling, mass and lump, left lower limb (principal) | CPT/HCPCS: 93970 ==

== ENCOUNTER → 2025-04-25 08:30 | Outpatient (BNV) | payer MEDICARE, MEDICAID, SELFPAY | PROVIDERS: Visit Provider Radiology Body Imaging | DX: Z12.31 Encounter for screening mammogram for malignant neoplasm of breast (principal) | CPT/HCPCS: 77063; 77067 ==

== ENCOUNTER 2025-04-25 08:41 | Outpatient (REF) | payer MEDICARE, MEDICAID, SELFPAY ==
--- NOTE | ~2025-04-25 | MM_ITS ---
EXAMINATION: MM SCREENING DIGITAL BREAST TOMOSYNTHESIS, BILATERAL CLINICAL INFORMATION: Screening. Asymptomatic. COMPARISON: February 10, 2023 and June 20, 2019 TECHNIQUE: Digital breast tomosynthesis is performed in both the craniocaudal and mediolateral oblique views along with computer-aided detection (CAD). FINDINGS: BREAST COMPOSITION: There are scattered areas of fibroglandular density (ACR BI-RADS breast composition Category b). BILATERAL BREASTS: No significant masses, suspicious calcifications or other abnormalities are seen in either breast. MM/MM tomosynthesis screening BI IMPRESSION: BILATERAL BREASTS: Negative, no mammographic evidence of malignancy. Normal interval follow-up is recommended in 12 months. ASSESSMENT: BI-RADS 1 - Negative RECOMMENDATION: Routine annual mammography screening. FOLLOW-UP: 1 year F/U This examination should not preclude the clinical evaluation of a suspicious palpable abnormality. This patient's information was entered into a reminder system with a target due date for their next mammogram. Electronically signed by: La Nena Villalta MD 05/05/2025 09:21 AM EDT
--- OUTSIDE RECORDS SUMMARY | 2025-04-25 08:54 | XMS_ITS | Clinical Summary ---
Author Organization [facility] Address [address] [place] [phone] Phone Care Team Providers Care Press Operator Carbon Blocks Name Role Phone Tammie Liu MD Primary Care Provider [phone] Allergies Active Allergy Reactions Criticality Noted Date [...] aqta) 19yo and older 01/10/2020,07/11/2019 Hepatitis B (Ruwkybn-V-Wxgaz , Recombivax HB-Adult) 19yo and older 01/10/2020,11/11/2019,07/11/2019 Tdap Tetanus diptheria acell ular pertussis (Boostrix; Adacel) 7yo and older 01/10/2020 Surgical History Surgery Date Site/Laterality Comments CHOLECYSTECTOMY 2008 PROCEDURE: [place] CHOLECYSTECTOMY SECTION 1997 and 2010 PROCEDURE: HISTORICAL [...] MEDICARE MEDICAID - [place] GENERIC Care Teams Press Operator Carbon Blocks Relationship Specialty Start Date End Date Tammie Liu MD [address] [place] [address] PCP - General Family Medicine 08/06/24
--- OUTSIDE RECORDS SUMMARY | 2025-04-25 08:54 | XMS_ITS | Encounter Summary ---
Author Organization [employer] Address [address] [place] [address] Care Team Providers Care Ibm Mainframe Systems Programmer Name Role Phone Tammie Liu MD Primary Care Provider [phone] Reason for Visit * Reason Onset Date Comments Prior Authorization 12/27/2023 Encounter Details Date Type Department Care Team ([facility] st Contact Info) Description 12/27/2023 Telephone [facility] [address] [place] [address] Tammie Liu MD [address] [place] [address] Prior Authorization Social History Tobacco Use Types [...] Care Team (Late st Contact Info) Description 05/15/2025 10:30 AM EDT Clinical Support [facility] [address] [place] [address] Tania Valenzuela, FARA [address] [place] [address] documented as of this encounter Visit Diagnoses Not on filedocumented in this encounter Additional Health Concerns Assessment Noted Time PHQ-9 Depression Total Score: 1 12/31/19 23 10:22 AM EDT documented as of this encounter Care Teams Ibm Mainframe Systems Programmer Relationship Specialty Start Date End Date Tammie Liu MD [address] [place] [address] PCP - General Family Medicine 12/21/22 documented as of this encounter
== END 2025-04-25 08:42 | disposition home or self-care (01) ==
LOC: HO.MAMMO 08:41
PROVIDERS: Visit Provider Family Medicine
DX: Z12.31 Encounter for screening mammogram for malignant neoplasm of breast (principal)
CPT/HCPCS: 77063; 77067

== ENCOUNTER → 2025-06-11 16:03 | Outpatient (REF) | payer MEDICARE, MEDICAID, SELFPAY ==
--- OUTSIDE RECORDS SUMMARY | 2025-06-11 18:02 | XMS_ITS | Encounter Summary ---
Author Organization [employer] Address [address] [facility] [address] [place] [address] Care Team Providers Care Bar Useful Or Busser Name Role Phone Tammie Liu MD Primary Care Provider [phone] Reason for Visit * Reason Onset Date Comments Appointment Request 10/02/2024 Med Refill 10/02/2024 Encounter Details Date Type Department Care Team ([facility] st Contact Info) Description 10/02/2024 Telephone [facility] [address] [place] [address] Tammie Liu MD [address] [place] [address] Appointment Request; Med Refill Social History Tobacco [...] immediate release tablet To be sent to: [facility] - [place], [place] - [address] [facility] Pt is also requesting call back regarding MANAGER OF MANUFACTURING visit from 09/10. Pt wanted to give a sincere apologyto the nurse stating she was very sick and wasn't able to get to the phone when she received the call. Please contact pt at [phone]. documented in this encounter Plan of Treatment Upcoming Encounters Date Type Department Care Team ([facility] st Contact Info) Description 07/17/2025 1:30 PM EDT Clinical Support [facility] [address] [place] [address] Tania Valenzuela, FARA [address] [place] [address] 07/21/2025 1:45 PM EST Office Visit [facility] [address] [place] [address] Tammie Liu MD [address] [place] [address] documented as of this encounter Visit Diagnoses Not on filedocumented in this encounter Additional Health Concerns Assessment Noted Time PHQ-9 Depression Total Score: 0 03/14/20 24 10:37 AM EDT documented as of this encounter Care Teams Bar Useful Or Busser Relationship Specialty Start Date End Date Tammie Liu MD [address] [place] [address] PCP - General Family Medicine 12/21/22 documented as of this encounter
--- OUTSIDE RECORDS SUMMARY | 2025-06-11 18:02 | XMS_ITS | Clinical Summary ---
Author Organization [employer] Address [address] [place] [address] [address] [place] [address] Care Team Providers Care Him Specialist Name Role Phone Tammie Liu MD Primary Care Provider [phone] Allergies Active Allergy Reactions Criticality Noted Date Comments Acetaminophen High 10/24/2024 Other Reaction(s): Bruising Unexplained brusing. Cephalexin 02/07/2022 Other reaction(s): nausea/itch Duloxetine Hcl [...] or vomiting. 20 tablet 03/14/20 24 Active atorvastatin (Lipitor) 40 MG tablet TAKE ONE TABLET EVERY MORNING 90 tablet 2 10/08/19 25 Active tiZANidine (Zanaflex) 4 MG tabletIndicatio ns:Acute bilateral low back pain, unspecified whether sciatica present Take 1 tablet (4 mg) by mouth every 8 (eight) hours if needed for muscle spasms for up to 10 days. 30 tablet 12/28/19 25 Active fluticasone (Flonase) 50 MCG/ACT nasal sprayIndication s:Seasonal allergies INHALE 1 SPRAY IN EACH NOSTRIL ONCE DAILY IN THE MORNING 16 g 3 02/21/20 25 Active omeprazole (PriLOSEC) [address] capsuleIndicati ons:Gastroesoph ageal reflux disease without esophagitis TAKE ONE CAPSULE EVERY MORNING BEFORE BREAKFAST 90 capsule 1 03/12/20 25 Active lisinopril 20 MG tabletIndicatio ns:Primary hypertension TAKE ONE TABLET EVERY MORNING 90 tablet 1 03/12/20 25 Active chlorthalidone (Hygroton) 25 MG tabletIndicatio ns:Primary hypertension TAKE ONE TABLET EVERY MORNING 90 tablet 1 03/12/20 25 Active naloxone (Narcan) 4 mg/0.1 mL nasal spray Administer 1 spray (4 mg) into affected nostril(s) if needed for opioid reversal. May repeat every 2-3 minutes if needed, alternating nostrils, until medical assistance becomes available. 2 each 2 05/09/20 25 2025 Active oxyCODONE (Roxicodone) 10 MG immediate release tabletIndicatio ns:Lumbar spondylosis Take 1 tablet (10 mg) by mouth every 6 (six) hours if needed for severe pain. 112 tablet 06/05/20 Active oxyCODONE (Roxicodone) 10 MG immediate release tabletIndicatio ns:Lumbar spondylosis Take 1 tablet (10 mg) by mouth every 6 (six) hours if needed for severe pain. 112 tablet 05/09/20 25 2024 Discontinued(R eorder (will not trigger notification to Pharmacy)) Active Problems Problem Noted Date Diagnosed Date Chronic thoracic back pain 04/07/2025 Vertebrogenic pain syndrome 04/07/2025 Localized swelling of left lower extremity 04/07 Assessment & Plan (04/07/2025 1:43 PM EDT): Ddx DVT, recent card ride > 4 hrs w/ swelling and redness. No streaking + Juan sign. Send for urgent/stat US to [facility]. Long-term current use of opiate analgesic 2024 COVID-19 09/09/2024 Assessment & Plan (09/09/2024 10:45 [...] MRI done, reports done in [place] in [facility], will request [place] to get records. [...] Carpal tunnel syndrome of left wrist 03/03/2023 Chronic pain of left knee 01/26/2023 Assessment & Plan (04/07/2025 1:42 PM EDT): Will send to orthopedics in [facility] Assessment & Plan (05/29/2023 5:17 PM EDT): [...] 49.9 in adult 12/30/2022 Assessment & Plan (04/07/2025 1:42 PM EDT): GLP-1 was denied due to insurance, she has gained 46 lbs. Will send to bariatric surgery. Will test for sleep apnea. Assessment & Plan (09/25/2024 1:31 PM EST): [...] recommended reduction of 20-30% of maintenance calories; auto body detailer referral offered. Recommended to decrease soda and [...] recommended reduction of 20-30% of maintenance calories; auto body detailer referral offered. Recommended to decrease soda and [...] recommended reduction of 20-30% of maintenance calories; auto body detailer referral offered. Recommended to decrease soda and [...] modifications Primary hypertension 10/31/2022 Assessment & Plan (04/07/2025 1:41 PM EDT): Uncontrolled, in the setting of severe pain. Will address in coming appt as this time is important to r/o DVT. Will be seen within 1 weeks. Assessment & Plan (10/31/2022 3:23 PM EST): [...] Mood disorder 09/05/2022 Nicotine use disorder 09/05/2022 Resolved Problems Problem Noted Date Diagnosed Date Resolved Date Morbid obesity with BMI of 50.0-59.9, adult 04/07/2025 04/18/2025 Encounters Date Type Department Care Team Description 06/05/2025 Refill [facility] [address] [place] [address] Tammie Liu MD Lumbar spondylosis 05/15/2025 10:30 AM EDT Clinical Support [facility] [address] [place] [address] Tania Valenzuela RN Chronic low back pain without sciatica, unspecified back pain laterality 05/15/2025 Travel 2025 Refill [facility] [address] [place] [address] Tammie Liu MD Lumbar spondylosis 04/18/2025 3:30 PM EDT Office Visit [facility] [address] [place] [address] Tammie Liu MD Breast cancer screening by mammogram (Primary Dx); Primary hypertension; Hep C w/o coma, chronic (CMS/HCC); Encounter for immunization; Class 3 severe obesity with serious comorbidity and body mass index (BMI) of 45.0 to 49.9 in adult 04/18/2025 Travel 04/10/2025 Refill [facility] [address] [place] [address] Tammei Liu MD Lumbar spondylosis 04/08/2025 Results Follow-Up [facility] [address] [place] [address] Tammie Liu MD Vascular US lower extremity venous duplex bilateral 04/07/2025 1:00 PM EDT Office Visit [facility] [address] [place] [address] Tammie Liu MD Class 3 severe obesity with serious comorbidity and body mass index (BMI) of 45.0 to 49.9 in adult (Primary Dx); Primary hypertension; Localized swelling of left lower extremity; Chronic pain of left knee; Dietary counseling; Exercise counseling; Sleep apnea, unspecified type 04/07/2025 Travel 04/03/2025 Telephone [facility] [address] [place] [address] Tammie Liu MD 03/28/2025 Patient Outreach [facility] [address] [place] [address] Tammie Liu MD Pre-visit Planning (SDOH screening completed on 02/18/25) 03/13/2025 Refill [facility] [address] [place] [address] Tammie Liu MD Lumbar spondylosis 03/11/2025 Refill [facility] [address] [place] [address] Tammie Liu MD Gastroesophageal reflux disease without esophagitis; Primary hypertension from Last 3 Months Immunizations Immunization Administration Dates Next Due Hep A, Adult 01/10/2020,07/11/2019 Hep B, adult 01/10/2020,11/11/2019,07/11/2019 Pneumococcal Conjugate PCV 20 04/18/2025 Tdap 01/10/2020 Social History Tobacco Use Types Packs/Day Years Used Date Smoking Tobacco: Every Day Cigarettes Smokeless Tobacco: Never Tobacco Cessation:Ready to Q uit: Not Asked; Counseling Given: Not Answered Alcohol Use Standard Drinks/Week Comments Never 0 (1 standard drink = 0.6 oz pur e alcohol) Depression Answer Date Recorded Patient Health Questionnaire-9 Score 5 04/07/2025 Patient Health Questionnaire-9 Score 5 04/07/2025 Last PHQ-9: Questionnaire Data Not on file 0 04/07/2025 Housing Stability Answer Date Recorded What is [...] from getting things needed for daily living? Yes, it has kept me from medical appointments or getting medications. 02/18/2025 Utilities Answer Date Recorded In the past 12 months, has t he electric, gas, oil or water company threatened to shut off services in your home? No 02/18/2025 Depression Answer Date Recorded Patient Health Questionnaire-2 Score 1 04/07/2025 Internet Access Answer Date Recorded Internet Access Q1 Yes 02/18/2025 Internet Access Q2 Not on file 02/18/2025 Comments Unknown Sex and Gender Information Value Date Recorded Sex Assigned at Female 07/18/2022 10:28 AM EDT Legal Sex Female 10:28 AM EDT Gender Identity Female 07/18/2022 10:28 AM EDT Sexual Orientation Lesbian or Schneider 07/18/2022 10 :28 AM EDT Last Filed Vital Signs Vital Sign Reading Time Taken Comments Blood Pressure 115/72 04/18/2025 3:42 PM EDT Pulse 84 04/18/2025 3:42 PM EDT Temperature 36.3 C (97.4 F) 04/18/2025 3:42 PM EDT Respiratory Rate 20 04/18/2025 3:42 PM EDT Oxygen Saturation 98% 04/18/2025 3:42 PM EDT Inhaled Oxygen Concentration - - Weight 131 kg (288 lb 12.8 oz) 04/18/2025 3:42 P M EDT Height 166 cm (5' 5.35 ) 04/18/2025 3:42 PM EDT Body Mass Index 47.54 04/18/2025 3:42 PM EDT Plan of Treatment Upcoming Encounters Date Type Department Care Team ([facility] st Contact Info) Description 07/17/2025 1:30 PM EDT Clinical Support [facility] [address] [place] [address] Tania Valenzuela, FARA [address] [place] [address] 07/21/2025 1:45 PM EST Office Visit [facility] [address] [place] [address] Tammie Liu MD [address] [place] [address] Health Maintenance Due Date Last Done Comments CT Colonography 1979 FIT DNA/Cologuard 1979 FIT 1979 FOBT 1980 Sigmoidoscopy 1980 Family Planning (PISQ) 1994 COVID-19 Vaccine ( season) 2025 08/04/2021, 07/07/2021 Influenza Vaccine (#1) 2025 Pap Smear 06/14/2025 06/14/2022 SDOH Screening 02/18/2026 02/18/2025 Alcohol/Substance Use Screening 04/07/2026 04/07/2025 Depression Screening 04/07/2026 04/07/2025, 04/07/20 25 Disability Screening 04/07/2026 04/07/2025 Tobacco Screening 04/18/2026 04/18/2025 Mammogram 04/25/2027 04/25/2025, 08/0 04/2025, 02/10/2023, Additional history exists Cervical Cancer Screening 06/14/2027 HPV/Cotest 06/14/2027 06/14/2022, 06/11/2019 Lipid Panel 01/28/2028 01/27/2023, 05/19, 01/06/2022 Zoster Vaccines (1 of 2) 2029 Colonoscopy 10/24/2029 10/24/2024 Colorectal Cancer Screening 10/24/2029 DTaP/Tdap/Td Vaccines (2 - Td or Tdap) 01/09/2030 01/10/2020 RSV Patients and Patients Aged 60 years or older (1 - 1-dose 75+ series) 2054 Hepatitis A Vaccines Completed 01/10/2020, 07/11/20 19 Hepatitis B Vaccines Completed 01/10/2020, 11/11/2019, 07/11/2019 HIV Screening Completed 01/27/2023 Pneumococcal Vaccine: Pediatrics (0 to 5 Years) and At-Risk Patients (6 to 49) Years Completed 04/18/2025 HIB Vaccines Aged Out No longer eligi [...] Procedure Name Priority Date/Time Associated Diagnosis Comments POCT SUSAN-14 URINE DRUG SCREEN Routine 05/15/2025 10:40 AM EDT Chronic low back pain without sciatica, unspecified back pain laterality BI MAMMOGRAM SCREENING TOMOSYNTHESIS BILATERAL Routine 04/25/2025 8:45 AM EDT Encounter for screening mammogram for malignant neoplasm of breast BI MAMMOGRAM SCREENING TOMOSYNTHESIS BILATERAL Routine 04/25/2025 Breast cancer screening by mammogram VASC US LOWER EXTREMITY VENOUS DUPLEX BILATERAL STAT 04/07/2025 3:00 PM EDT Localized swelling of left lower extremity HM COLONOSCOPY Routine 10/24/2024 6:56 PM EST HIV 1/2 ANTIGEN/ANTIBODY, FOURTH GENERATION W/RFL Routine 01/27/2023 9:55 AM EDT LIPID PANEL, STANDARD Routine 01/27/2023 9:55 AM EDT Class 3 severe obesity with body mass index (BMI) of 50.0 to 59.9 in adult, unspecified obesity type, unspecified whether serious comorbidity present (CMS/FORMER[facility]) THINPREP IMAGING PAP AND HPV MRNA E6/E7 WITH REFLEX TO HPV 16,18/45 Routine 06/14/2022 11:40 AM EDT from Last 3 Months or Most Recently Relevant to Health Maintenance Results * (ABNORMAL) POCT SUSAN-14 Urine Drug Screen (05/15/2025 10:40 AM EDT) THC Negative Negative Cocaine Screen, Urine Negative Negative Opiate Screen, Urine Negative Negative Methamphetamine Screen Urine Negative Negative Amphetamine Screen, Urine Negative Negative Benzodiazepines Screen, Urine Positive(A) Negative Barbiturate Screen, Urine Negative Negative Methadone Screen, Urine Negative Negative Buprenophine Screen, Urine Negative Negative TCA, Urine Negative Negative MDMA Urine Negative Negative ng/mL Oxycodone Screen, Urine Positive(A) Negative Phencyclidine (PCP), Urine Negative Negative Propoxyphene, Urine Negative Negative Fentanyl, Urine Negative Negative Urine Urine specimen obtained by clean catch procedure / Unknown 05/15/2025 10:40 AM EDT Narrative Tania Valenzuela RN - 05/15/2025 10:40 AM EDT Internal Pass Control Lot# [id number] Exp: 07-18-26 us Tammie Liu MD POINT OF CARE TEST ENTER/EDIT ORDERABLES Final Result * BI Mammogram Screening Tomosynthesis Bilateral (04/25/2025 8:45 AM EDT) Only the most recent of2 resultswithin the time period is included. Anatomical Region Laterality Modality Breast Bilateral Mammography 04/25/2025 8:45 AM EDT Narrative 05/05/2025 9:24 AM EDT [facility] [address] [place] [address] Mammography Report Signed Patient: Susana Hi MR#: [id number] : 1980 Acct:[id number] Age/Sex: 44 / F ADM Date: 04/25/25 Loc: HO.MAMMO Attending Dr: Tammie Liu MD Ordering Physician: Tammie Liu MD Results: 1Nega tive Date of Service: 04/25/25 Follow Up: 1 Year From Orig inal Mammogram Procedure(s): MM tomosynthesis screening BI Accession Number(s): [id number] cc: Tammie Liu MD EXAMINATION: MM SCREENING DIGITAL BREAST TOMOSYNTHESIS, BILATERAL CLINICAL INFORMATION: Screening. Asymptomatic. COMPARISON: February 10, 2023 and June 20, 2019 TECHNIQUE: Digital breast tomosynthesis is performed in both the craniocaudal and mediolateral oblique views along with computer-aided detection (CAD). FINDINGS: BREAST COMPOSITION: There are scattered areas of fibroglandular density (ACR BI-RADS breast composition Category b). BILATERAL BREASTS: No significant masses, suspicious calcifications or other abnormalities are seen in either breast. MM/MM tomosynthesis screening BI IMPRESSION: BILATERAL BREASTS: Negative, no mammographic evidence of malignancy. Normal interval follow-up is recommended in 12 months. ASSESSMENT: BI-RADS 1 - Negative RECOMMENDATION: Routine annual mammography screening. FOLLOW-UP: 1 year F/U This examination should not preclude the clinical evaluation of a suspicious palpable abnormality. This patient's information was entered into a reminder system with a target due date for their next mammogram. Electronically signed by: La Nena Villalta MD 05/05/2025 09:21 AM EDT Dictated By: La Nena Villalta MD Signed By: <Electronically signed by La Nnea Villalta MD in OV> 05/05/2521 DD/ 4 TD/TT: 04/25/25904 Granite Polisher: Procedure Note Donotuseinterpreter, Image - 05/05/2025 [facility] [address] [place], [place] [address] Mammography Report Signed Patient: Susana HiMR#: M [id number] : 1980Acct:[id number] Age/Sex: 44 / FADM Date: 04/25/25 Loc: HO.MAMMO Attending Dr: Tammie Liu MD Ordering Physician: Tammie Liu MDResults: 1Nega tive Date of Service: 04/25/25Follow Up: 1 Year From Orig inal Mammogram Procedure(s): MM tomosynthesis screening BI Accession Number(s): [id number] cc: Tammie Liu MD EXAMINATION: MM SCREENING DIGITAL BREAST TOMOSYNTHESIS, BILATERAL CLINICAL INFORMATION: Screening. Asymptomatic. COMPARISON: February 10, 2023 and June 20, 2019 TECHNIQUE: Digital breast tomosynthesis is performed in both the craniocaudal and mediolateral oblique views along with computer-aided detection (CAD). FINDINGS: BREAST COMPOSITION: There are scattered areas of fibroglandular density (ACR BI-RADS breast composition Category b). BILATERAL BREASTS: No significant masses, suspicious calcifications or other abnormalities are seen in either breast. MM/MM tomosynthesis screening BI IMPRESSION: BILATERAL BREASTS: Negative, no mammographic evidence of malignancy. Normal interval follow-up is recommended in 12 months. ASSESSMENT: BI-RADS 1 - Negative RECOMMENDATION: Routine annual mammography screening. FOLLOW-UP: 1 year F/U This examination should not preclude the clinical evaluation of a suspicious palpable abnormality. This patient's information was entered into a reminder system with a target due date for their next mammogram. Electronically signed by: La Nena Villalta MD 05/05/2025 09:21 AM EDT Dictated By: La Nena Villalta MD Signed By: <Electronically signed by La Nena Villalta MD in OV> 05/05/2521 DD/ 4 TD/TT: 04/25/25904 Granite Polisher: us Tammie Liu MD IMG BI PROCEDURES Final Resul t * Vascular US lower extremity venous duplex bilateral (04/07/2025 3:00 PM EDT) 04/07/2025 3:00 PM EDT Narrative [facility] - 04/07/2025 3:40 PM EDT [address] [address] Ultrasound Report Signed Patient: Susana Hi MR#: [id number] : 1980 Acct:[id number] Age/Sex: 44 / F ADM Date: 04/07/25 Loc: HO.US Attending Dr: Tammie Liu MD Ordering Physician: Tammie Liu MD Date of Service: 04/07/25 Procedure(s): US venous duplex LE BI Accession Number(s): [id number] cc: Tammie Liu MD EXAMINATION: US TRIPLEX LOWER EXTREMITY, BILATERAL CLINICAL INFORMATION: Left-sided pain and redness, COMPARISON: None available. TECHNIQUE: Color-flow triplex imaging with spectral analysis and compression Doppler were performed on the bilateral lower extremities. FINDINGS: Respiratory variation, normal compression and augmented flow are noted throughout the bilateral lower extremities. The visualized common femoral vein, superficial femoral vein, profunda femoral vein, popliteal vein and posterior tibial venous segments show no evidence of deep venous thrombosis bilaterally. Left peroneal vein is not demonstrated. There is minimal fluid in a small right Rothman's cyst. US/US venous duplex LE BI IMPRESSION: No evidence of deep venous thrombosis involving the bilateral lower extremities. Electronically signed by: Hunter Barksdale MD 04/07/2025 03:37 PM EDT Dictated By: Hunter Barksdale MD Signed By: <Electronically signed by Hunter Barksdale MD in OV> 04/07/25 1537 DD/ 1500 TD/TT: 04/07/25 1528 Granite Polisher: Procedure Note Donotuseinterpreter, Image - 04/07/[address] [address] Ultrasound Report Signed Patient: Susana HiMR#: M [id number] : 1980Acct:[id number] Age/Sex: 44 / FADM Date: 04/07/25 Loc: HO.US Attending Dr: Tammie Liu MD Ordering Physician: Tammie Liu MD Date of Service: 04/07/25 Procedure(s): US venous duplex LE BI Accession Number(s): [id number] cc: Tammie Liu MD EXAMINATION: US TRIPLEX LOWER EXTREMITY, BILATERAL CLINICAL INFORMATION: Left-sided pain and redness, COMPARISON: None available. TECHNIQUE: Color-flow triplex imaging with spectral analysis and compression Doppler were performed on the bilateral lower extremities. FINDINGS: Respiratory variation, normal compression and augmented flow are noted throughout the bilateral lower extremities. The visualized common femoral vein, superficial femoral vein, profunda femoral vein, popliteal vein and posterior tibial venous segments show no evidence of deep venous thrombosis bilaterally. Left peroneal vein is not demonstrated. There is minimal fluid in a small right Rothman's cyst. US/US venous duplex LE BI IMPRESSION: No evidence of deep venous thrombosis involving the bilateral lower extremities. Electronically signed by: Hunter Barksdale MD 04/07/2025 03:37 PM EDT Dictated By: Hunter Barksdale MD Signed By: <Electronically signed by Hunter Barksdale MD in OV> 04/07/25 1537 DD/ 1500 TD/TT: 04/07/25 1528 Granite Polisher: Tammie Liu MD CV VASCULAR PROCEDURES Final Result [facility] [address] [place] [address] [phone] * Hm Colonoscopy (10/24/2024 6:56 PM EST) Historical Provider HEALTH MAINTENANCE Final Result * HIV-1/2 Antigen and Antibodies, Fourth Generation, with Reflexes (01/27/2023 9:55 AM EDT) Pathologist [facility] HIV Antigen/Antibody, 4th Generation NON-REAC TIVE NON-REAC TIVE [email or web address] Comment: HIV-1 antigen and HIV-1/HIV-2 antibodies were not detected. There is no laboratory evidence of HIV infection. PLEASE NOTE: This information has been disclosed to you from records whose confidentiality may be protected by state law. If your state requires such protection, then the state law prohibits you from making any further disclosure of the information without the specific written consent of the person to whom it pertains, or as otherwise permitted by law. A general authorization for the release of medical or other information is NOT sufficient for this purpose. For additional information please refer to http://HedgeChatter.Azuqua/faq/WUU857 (This link is being provided for informational/ educational purposes only.) The performance of this assay has not been clinically validated in patients less than 2 years old. 01/27/2023 9:55 AM EDT 01/27/2023 9:56 AM EDT Narrative [facility] - 01/28/2023 2:14 AM EDT FASTING:YES FASTING: YES us Tammie Liu MD LAB BLOOD ORDERABLES Final Re sult [facility] [address], [place] [address] [facility] [employer] [place] [facility] [address] [place] [address] * (ABNORMAL) Lipid Panel, Standard (01/27/2023 9:55 AM EDT) Cholesterol, Total 103 <200 mg/dL [facility] [employer] [place] [facility] HDL Cholesterol 37(L) > OR = 50 mg/dL [facility] [employer] [place] [facility] Triglycerides 102 <150 mg/dL [facility] [employer] [place] [facility] LDL Cholesterol 47 mg/dL (calc) [facility] [employer] [place] [facility] Comment: Reference range: <100 Desirable range <100 mg/dL for primary prevention; <70 mg/dL for patients with CHD or diabetic patients with > or = 2 CHD risk factors. LDL-C is now calculated using the Rickey calculation, which is a validated novel method providing better accuracy than the Friedewald equation in the estimation of LDL-C. Francisco ALCAZAR et al. GLORIA. 2013;310(19): 4065-0122 (http://education.ProZyme/faq/LFW367) Chol/HDLC Ratio 2.8 <5.0 (calc) [facility] [employer] [place] [facility] Non-HDL Cholesterol 66 <130 mg/dL (calc) [facility] [employer] [place] [facility] Comment: For patients with diabetes plus 1 major ASCVD risk factor, treating to a non-HDL-C goal of <100 mg/dL (LDL-C of <70 mg/dL) is considered a therapeutic option. Blood Venous blood specimen / Unknown 01/27/2023 9:55 AM EDT 01/27/2023 9:56 AM EDT Narrative [facility] - 01/28/2023 2:14 AM EDT FASTING:YES FASTING: YES us Tammie Liu MD LAB BLOOD ORDERABLES Final Re sult [address], [place] [address] [employer] [place] [facility] [address] [place] [phone] * THINPREP TIS PAP AND HPV mRNA E6/E7 WITH REFLEX TO HPV 16,18/45 (06/14/2022 11:40 AM EDT) Clinical Information: None given [facility]VERTED [facility]GAC[facility] COMMENT SEE COMMENT [facility] Comment: EXPLANATORY NOTE: The Pap is a screening test for cervical cancer. It is not a diagnostic test and is subject to false negative and false positive results. It is most reliable when a satisfactory sample, regularly obtained, is submitted with relevant clinical findings and history, and when the Pap result is evaluated along with historic and current clinical information. COMMENT: This Pap test has been evaluated with computer assisted technology. CONVERTED LEGACY LABS Optical Instrument Inspector : SEE COMMENT [facility] Comment: ED, CT(ASCP) CT screening location: [address] [address] HPV nRNA E6/E7 Not Detected Not Detected [facility] Comment: Methodology: High School Biology Teacher-Mediated Amplification This assay detects E6/E7 viral messenger RNA (mRNA) from 14 high-risk HPV types (16,18,31,33,35,39,45,51,52,56,58,59,66,68). Cervical sources are required for HPV testing. If a vaginal source from a patient who has had a total hysterectomy with removal of cervix was submitted, please contact the testing laboratory for alternative testing options. For additional information, please refer to http://education.Azuqua/faq/QFZ350y4 (This link if provided for information/ educational [...] Armstrong CNM LAB PATHOLOGY ORDERABLES Final Result Performing Organization Address City/State/[facility] Co de Phone Number CONVERTED LEGACY LABS from Last 3 Months or Most Recently Relevant to Health Maintenance Insurance MEDICARE [facility] Care Teams Him Specialist Relationship Specialty Start Date End Date Tammie Liu MD [address] [place] [phone] PCP - General Family Medicine 12/21/22
--- OUTSIDE RECORDS SUMMARY | 2025-06-11 18:02 | XMS_ITS | Encounter Summary ---
Author Organization [employer] Address 75 [facility] 7t [place] [address] Care Team Providers Care Director Of Design Name Role Phone Tammie Liu MD Primary Care Provider [phone] Encounter Details Date Type Department Care Team ([facility] st Contact Info) Description 06/27/2023 Abstract [facility] [address] [place] [address] Tammie Liu MD 505 [place] [address] Social History Tobacco Use Types Packs/Day Years Used Date Smoking Tobacco: Every Day Cigarettes Smokeless Tobacco: Never Alcohol Use Standard Drinks/Week Comments Never 0 (1 standard drink = 0.6 oz pur e alcohol) Depression Answer Date Recorded Patient Health Questionnaire-9 Score 1 12/30/2022 Housing Stability Answer Date Recorded What is your housing situation today? I have meronerna santos 06/27/[address] you [...] Care Team (Late st Contact Info) Description 07/17/2025 1:30 PM EDT Clinical Support [facility] MED & PEDS [address] [place] [address] Tania Valenzuela RN 505 [place] [address] 07/21/2025 1:45 PM EST Office Visit [facility] [address] [place] [address] Tammie Liu MD 505 [place] [address] documented as of this encounter Visit Diagnoses Not on filedocumented in this encounter Additional Health Concerns Assessment Noted Time PHQ-9 Depression Total Score: 1 12/31/19 23 10:22 AM EDT documented as of this encounter Care Teams Director Of Design Relationship Specialty Start Date End Date Tammie Liu MD [address] [place] [address] PCP - General Family Medicine 12/21/22 documented as of this encounter
--- OUTSIDE RECORDS SUMMARY | 2025-06-11 18:02 | XMS_ITS | Encounter Summary ---
Author Organization [employer] Address 75 [facility] 7t [place] [address] Care Team Providers Care Keyboard Instrument Repairer Name Role Phone Tammie Liu MD Primary Care Provider [phone] Reason for Visit * Reason Comments Med Change Request Encounter Details Date Type Department Care Team ([facility] Contact Info) Description 07/03/2023 Refill [facility] MED & PEDS [address] [place] [address] Tammie Liu MD 505 [place] [address] Social History Tobacco Use Types Packs/Day Years [...] Description 07/17/2025 1:30 PM EDT Clinical Support [facility]ED[facility] [address] [place] [address] Tania Valenzuela RN 505 [place] [address] 07/21/2025 1:45 PM EST Office Visit [facility] [address] [place] [address] Tammie Liu MD 505 [place] [address] documented as of this encounter Visit Diagnoses Not on filedocumented in this encounter Additional Health Concerns Assessment Noted Time PHQ-9 Depression Total Score: 1 12/31/19 23 10:22 AM EDT documented as of this encounter Care Teams Keyboard Instrument Repairer Relationship Specialty Start Date End Date Tammie Liu MD 230 [place] [address] PCP - General Family Medicine 12/21/22 documented as of this encounter
--- OUTSIDE RECORDS SUMMARY | 2025-06-11 18:02 | XMS_ITS | Encounter Summary ---
Author Organization [employer] Address 75 [facility] 7t [place] [address] Care Team Providers Care Ride Assembly Supervisor Name Role Phone Tammie Liu MD Primary Care Provider [phone] Reason for Visit * Reason Onset Date Comments FYI 10/09/2023 Encounter Details Date Type Department Care Team ([facility] Contact Info) Description 10/09/2023 Telephone [facility] CHC MED & PEDS [address] [place], [place] [phone] Tammie Liu MD 505 [place] [address] FYI Social History Tobacco Use Types Packs/Day [...] she had her x-rays done today at [facility] 10/09/23. documented in this encounter Plan of Treatment Upcoming Encounters Date Type Department Care Team (Late st Contact Info) Description 07/17/2025 1:30 PM EDT Clinical Support [facility] MED & PED[facility] [address] [place] [address] Tania Valenzuela, FARA 505 [place] [address] 07/21/2025 1:45 PM EST Office Visit [facility] [address] [place] [address] Tammie Liu MD [address] [place] [address] documented as of this encounter Visit Diagnoses Not on filedocumented in this encounter Additional Health Concerns Assessment Noted Time PHQ-9 Depression Total Score: 1 12/31/19 23 10:22 AM EDT documented as of this encounter Care Teams Ride Assembly Supervisor Relationship Specialty Start Date End Date Tammie Liu MD [address] [place] [address] PCP - General Family Medicine 12/21/22 documented as of this encounter
--- OUTSIDE RECORDS SUMMARY | 2025-06-11 18:02 | XMS_ITS | Encounter Summary ---
Author Organization [employer] Address 75 [facility] 7t [place] [address] Care Team Providers Care Concrete Block Mason Name Role Phone Tammie Liu MD Primary Care Provider [phone] Reason for Visit * Reason Onset Date Comments Prior Authorization 12/27/2023 Encounter Details Date Type Department Care Team ([facility] st Contact Info) Description 12/27/[address] [facility] MEDICINE [address] [place] [address] Tammie Liu MD 505 [place] [address] Prior Authorization Social History Tobacco Use Types [...] Description 07/17/2025 1:30 PM EDT Clinical Support [facility] MED & PEDS 505 [place] [address] Tania Valenzuela, FARA 505 [place] [address] 07/21/2025 1:45 PM EST Office Visit [facility] MED & PEDS [address] [place] [address] Tammie Liu MD 505 [place] [address] documented as of this encounter Visit Diagnoses Not on filedocumented in this encounter Additional Health Concerns Assessment Noted Time PHQ-9 Depression Total Score: 1 12/31/19 23 10:22 AM EDT documented as of this encounter Care Teams Concrete Block Mason Relationship Specialty Start Date End Date Tammie Liu MD [address] [place] [address] PCP - General Family Medicine 12/21/22 documented as of this encounter
--- OUTSIDE RECORDS SUMMARY | 2025-06-11 18:02 | XMS_ITS | Encounter Summary ---
Author Organization [employer] Address 75 [facility] 7t [place] [address] Care Team Providers Care Crayon Grader Name Role Phone Tammie Liu MD Primary Care Provider Reason for Visit * Reason Onset Date Comments Med Refill 08/27/2023 Encounter Details Date Type Department Care Team ([facility] st Contact Info) Description 08/27/2023 Refill [facility] CHC MED & PEDS [address] [place] [address] Tammie Liu MD 505 [place] [address] Lumbar spondylosis Social History Tobacco Use Types [...] Description 07/17/2025 1:30 PM EDT Clinical Support [facility] MED & PEDS 505 [place] [address] Tania Valenzuela, FARA 505 [place] [address] 07/21/2025 1:45 PM EST Office Visit [facility] MED & PEDS 505 [place] [address] Tammie Liu MD 505 [place] [address] documented as of this encounter Visit Diagnoses Diagnosis Lumbar spondylosis Lumbosacral spondylosis without myelopathy documented in this encounter Additional Health Concerns Assessment Noted Time PHQ-9 Depression Total Score: 1 12/31/19 23 10:22 AM EDT documented as of this encounter Care Teams Crayon Grader Relationship Specialty Start Date End Date Tammie Liu MD [address] [place] [address] PCP - General Family Medicine 12/21/22 documented as of this encounter
--- OUTSIDE RECORDS SUMMARY | 2025-06-11 18:02 | XMS_ITS | Encounter Summary ---
Author Organization [employer] Address 75 [facility] 7t [place] [address] Care Team Providers Care Public Health Nutritionist Name Role Phone Tammie Liu MD Primary Care Provider [phone] Reason for Visit * Reason Comments Med Refill Encounter Details Date Type Department Care Team ([facility] Contact Info) Description 07/03/2023 Refill [facility] CHC MED & PEDS [address] [place] [address] Tammie Liu MD 505 [place] [address] Social History Tobacco Use Types Packs/Day Years [...] Description 07/17/2025 1:30 PM EDT Clinical Support [facility] MED & PEDS [address] [place] [address] Tania Valenzuela RN 505 [place] [address] 07/21/2025 1:45 PM EST Office Visit [facility] MED & PEDS [address] [place] [address] Tammie Liu MD 505 [place] [address] documented as of this encounter Visit Diagnoses Not on filedocumented in this encounter Additional Health Concerns Assessment Noted Time PHQ-9 Depression Total Score: 1 12/31/19 23 10:22 AM EDT documented as of this encounter Care Teams Public Health Nutritionist Relationship Specialty Start Date End Date Tammie Liu MD [address] [place] [address] PCP - General Family Medicine 12/21/22 documented as of this encounter
--- OUTSIDE RECORDS SUMMARY | 2025-06-11 18:02 | XMS_ITS | Encounter Summary ---
Author Organization [employer] Address 75 [facility] 7t [place] [address] Care Team Providers Care Air Conditioning Insulation Installer Name Role Phone Tammie Liu MD Primary Care Provider [phone] Reason for Visit * Reason Onset Date Comments Med Refill 10/27/2023 Encounter Details Date Type Department Care Team ([facility] st Contact Info) Description 10/27/2023 Telephone [facility] CHC MED & PEDS [address] [place] [address] Tammie Liu MD [address] [place] [address] Med Refill Social History Tobacco Use Types [...] immediate release tablet To be sent to: [facility] - [address] documented in this encounter Plan of Treatment Upcoming Encounters Date Type Department Care Team ([facility] st Contact Info) Description 07/17/2025 1:30 PM EDT Clinical Support [facility] MED & PEDS [address] [place] [address] Tania Valenzuela RN 505 [place] [address] 07/21/2025 1:45 PM EST Office Visit [facility] MED & PEDS [address] [place] [address] Tammie Liu MD 505 [place] [address] documented as of this encounter Visit Diagnoses Not on filedocumented in this encounter Additional Health Concerns Assessment Noted Time PHQ-9 Depression Total Score: 1 12/31/19 23 10:22 AM EDT documented as of this encounter Care Teams Air Conditioning Insulation Installer Relationship Specialty Start Date End Date Tammie Liu MD [address] [place] [address] PCP - General Family Medicine 12/21/22 documented as of this encounter
--- OUTSIDE RECORDS SUMMARY | 2025-06-11 18:03 | XMS_ITS | Encounter Summary ---
Author Organization [employer] Address 75 [facility] 7t [place] [address] Care Team Providers Care Baseball Player Name Role Phone Tammie Liu MD Primary Care Provider [phone] Reason for Visit * Reason Onset Date Comments Appointment Request 09/02/2024 Encounter Details Date Type Department Care Team ([facility] Contact Info) Description 09/02/2024 Telephone [facility] MEDICINE [address] [place] [address] Tammie Liu MD 505 [place] [address] Appointment Request Social History Tobacco Use Types [...] r/s appt for 09/03. Contact pt at [phone] documented in this encounter Plan of Treatment Upcoming Encounters Date Type Department Care Team (Late st Contact Info) Description 07/17/2025 1:30 PM EDT Clinical Support [facility] MED & PEDS [address] [place] [address] Tania Valenzuela RN 505 [place] [address] 07/21/2025 1:45 PM EST Office Visit [facility] MED & PEDS [address] [place] [address] Tammie Liu MD 505 [place] [address] documented as of this encounter Visit Diagnoses Not on filedocumented in this encounter Additional Health Concerns Assessment Noted Time PHQ-9 Depression Total Score: 0 03/14/20 24 10:37 AM EDT documented as of this encounter Care Teams Baseball Player Relationship Specialty Start Date End Date Tammie Liu MD [address] [place] [address] PCP - General Family Medicine 12/21/22 documented as of this encounter
--- OUTSIDE RECORDS SUMMARY | 2025-06-11 18:03 | XMS_ITS | Encounter Summary ---
Author Organization [employer] Address 75 [facility] 7t [place] [address] Care Team Providers Care Pipe Layer Name Role Phone Tammie Liu MD Primary Care Provider [phone] Reason for Visit * Reason Onset Date Comments Med Refill 11/19/2024 Encounter Details Date Type Department Care Team ([facility] st Contact Info) Description 11/19/2024 Refill [facility] CHC MED & PEDS [address] [place] [address] Tammie Liu MD 505 [place] [address] Social History Tobacco Use Types Packs/Day Years [...] * Telephone Encounter - Kaya Kirby - 11/19/2024 12:25 PM EST Tc from pt calling back to inform she mistakenly called in the wrong medication is aware that she is due next week. * Telephone Encounter - Kaya Kirby - 11/19/2024 10:37 AM EST TC from pt requesting medication refill. Medications needing refill : oxyCODONE (Roxicodone) 10 MG immediate release tablet To be sent to: [facility] - [place], [place] - [address] [facility] documented in this encounter Plan of Treatment Upcoming Encounters Date Type Department Care Team (Late st Contact Info) Description 07/17/2025 1:30 PM EDT Clinical Support [facility] MED & PEDS [address] [place] [address] Tania Valenzuela RN 505 [place] [address] 07/21/2025 1:45 PM EST Office Visit [facility] MED & PEDS [address] [place] [address] Tammie Liu MD 505 [place] [address] documented as of this encounter Visit Diagnoses Not on filedocumented in this encounter Additional Health Concerns Assessment Noted Time PHQ-9 Depression Total Score: 0 03/14/20 24 10:37 AM EDT documented as of this encounter Care Teams Pipe Layer Relationship Specialty Start Date End Date Tammie Liu MD 230 [place] [address] PCP - General Family Medicine 12/21/22 documented as of this encounter
--- OUTSIDE RECORDS SUMMARY | 2025-06-11 18:03 | XMS_ITS | Encounter Summary ---
Author Organization [employer] Address 75 [facility] 7t [place] [address] Care Team Providers Care Sociocultural Anthropology Professor Name Role Phone Tammie Liu MD Primary Care Provider [phone] Reason for Visit * Reason Onset Date Comments Call Back Request 02/08/2024 Encounter Details Date Type Department Care Team ([facility] Contact Info) Description 02/08/2024 Telephone [facility] MEDICINE [address] [place] [address] Tammie Liu MD [address] [place] [address] Call Back Request Social History Tobacco Use [...] PM EDT Tc from pt requesting r/s WELLNESS RN appt documented in this encounter Plan of Treatment Upcoming Encounters Date Type Department Care Team (Late st Contact Info) Description 07/17/2025 1:30 PM EDT Clinical Support [facility] PEDS [address] [place] [address] Tania Valenzuela, FARA 505 [place] [address] 07/21/2025 1:45 PM EST Office Visit [facility]ED[facility] [address] [place] [address] Tammie Liu MD [address] [place] [address] documented as of this encounter Visit Diagnoses Not on filedocumented in this encounter Additional Health Concerns Assessment Noted Time PHQ-9 Depression Total Score: 1 12/31/19 23 10:22 AM EDT documented as of this encounter Care Teams Sociocultural Anthropology Professor Relationship Specialty Start Date End Date Tammie Liu MD [address] [place] [address] PCP - General Family Medicine 12/21/22 documented as of this encounter
--- OUTSIDE RECORDS SUMMARY | 2025-06-11 18:03 | XMS_ITS | Encounter Summary ---
Author Organization [facility] Address [address] [place] [address] Phone Care Team Providers Care Operations Expert Name Role Phone Demetrio Anna MD Primary Care Prov ider Encounter Details Date Type Department Care Team (Late st Contact Info) Description 11/20/2020 Procedure [facility], [address] [address] Social History Tobacco Use Types Packs/Day Years Used Date Smoking Tobacco: Never Assessed Comments Unknown Sex and Gender Information Value Date Recorded Sex Assigned at Not on file Legal Sex Female 8:11 AM EST Gender Identity Not on file Sexual Orientation Not on file documented as of this encounter Plan of Treatment Not on file documented as of this encounter Visit Diagnoses Not on filedocumented in this encounter Care Teams Operations Expert Relationship Specialty Start Date End Date Demetrio Anna MD 505 [place] [address] PCP - General 10/01/20 documented as of this encounter Additional Source Comments The information contained in this document represents components of the legal health record. It is not the complete legal health record.[facility]
--- OUTSIDE RECORDS SUMMARY | 2025-06-11 18:03 | XMS_ITS | Encounter Summary ---
Author Organization [employer] Address 75 [facility] 7t [place] [address] Care Team Providers Care Tar Distributor Operator Name Role Phone Tammie Liu MD Primary Care Provider [phone] Reason for Visit * Reason Onset Date Comments Med Refill 03/01/2024 Encounter Details Date Type Department Care Team (Late st Contact Info) Description 03/01/2024 Refill [facility] MEDICINE [address] [place] [address] Tammie Liu MD [address] [place] [address] Lumbar spondylosis Social History Tobacco Use Types [...] 07/17/2025 1:30 PM EDT Clinical Support [facility] & PEDS [address] [place] [address] Tania Valenzuela RN [address] [place] [address] 07/21/2025 1:45 PM EST Office Visit [facility] MED & PEDS [address] [place] [address] Tammie Liu MD [address] [place] [address] documented as of this encounter Visit Diagnoses Diagnosis Lumbar spondylosis Lumbosacral spondylosis without myelopathy documented in this encounter Additional Health Concerns Assessment Noted Time PHQ-9 Depression Total Score: 1 12/31/19 23 10:22 AM EDT documented as of this encounter Care Teams Tar Distributor Operator Relationship Specialty Start Date End Date Tammie Liu MD [address] [place] [address] PCP - General Family Medicine 12/21/22 documented as of this encounter
--- OUTSIDE RECORDS SUMMARY | 2025-06-11 18:03 | XMS_ITS | Encounter Summary ---
Author Organization [employer] Address 75 [facility] 7t [place] [address] Care Team Providers Care Structural Iron Erector Name Role Phone Tammie Liu MD Primary Care Provider [phone] Reason for Visit * Reason Comments Med Refill Encounter Details Date Type Department Care Team (Late st Contact Info) Description 04/20/2023 Refill [facility] MED & PEDS [address] [place] [address] Tammie Liu MD [address] [place] [address] Social History Tobacco Use Types Packs/Day Years [...] Encounters Date Type Department Care Team (Late Contact Info) Description 07/17/2025 1:30 PM EDT Clinical Support [facility] MED & PEDS [address] [place] [address] Tania Valenzuela RN 505 [place] [address] 07/21/2025 1:45 PM EST Office Visit [facility] MED & PEDS [address] [place] [address] Tammie Liu MD [address] [place] [address] documented as of this encounter Visit Diagnoses Not on filedocumented in this encounter Additional Health Concerns Assessment Noted Time PHQ-9 Depression Total Score: 1 12/31/19 23 10:22 AM EDT documented as of this encounter Care Teams Structural Iron Erector Relationship Specialty Start Date End Date Tammie Liu MD [address] [place] [address] PCP - General Family Medicine 12/21/22 documented as of this encounter
--- OUTSIDE RECORDS SUMMARY | 2025-06-11 18:03 | XMS_ITS | Encounter Summary ---
Author Organization [facility] Address [address] [facility] [address] [place] [address] Phone Care Team Providers Care Advanced Practice Nurse Name Role Phone Demetrio Anna MD Primary Care Prov ider Reason for Referral * MRI/CAT Scan - Closed Specialty Diagnoses / Procedures Referred By Contac t Referred To Contact Radiology Diagnoses Right hip pain Other instability, right hip Procedures MRI Hip Arthrogram (Right) Vj Daniel DO Phone: tel: fax: mailto: .[email or web address] om Referral ID Status Reason Start Date Expiration Date Visits Re quested Visits Authorized [id number] Closed 11/24/2020 01/08/2021 1 1 * - Closed Specialty Diagnoses / Procedures Referred By Contac t Referred To Contact Radiology Diagnoses Right hip pain Other instability, right hip Procedures FL Hip Arthrogram (Right) Vj Daniel DO Phone: tel: fax: [email or web address] Referral ID Status Reason Start Date Expiration Date Visits Re quested Visits Authorized [id number] Closed 11/20/2020 11/20/2021 1 1 Encounter Details Date Type Department Care Team (Latest Contact Info) Description 11/20/2020 Transcribe Orders [facility] Department [address] [place] [address] Vj Daniel, DO [address] [place] [address] [email or web address] Right hip pain (Primary Dx); Other instability, right hip Social History Tobacco Use Types Packs/Day Years Used Date Smoking Tobacco: Never Assessed Comments Unknown Sex and Gender Information Value Date Recorded Sex Assigned at Not on file Legal Sex Female 8:11 AM EST Gender Identity Not on file Sexual Orientation Not on file documented as of this encounter Plan of Treatment Not on file documented as of this encounter Results * MRI Hip Arthrogram (Right) (12/07/2020 1:27 PM EDT) Anatomical Region Laterality Modality Hip Right Magnetic Resonan ce 12/07/2020 1:41 PM EDT Impressions 12/07/2020 2:06 PM EDT No evidence of a right hip labral tear. Narrative 12/07/2020 2:06 PM EDT COMPARISON: MRI right hip 07/23/2019. TECHNIQUE: Exam performed on a 1.5 Bhavani high-field MRI scanner. Dilute gadolinium solution was injected before the MRI-please see separate report. Coronal T1, T2 and T2 with fat suppression of both hips, axial, coronal, and oblique sagittal T1 with fat suppression of the affected hip sequences were obtained. MRI RIGHT HIP ARTHROGRAM FINDINGS: Musculoskeletal: Joint spaces are preserved. No malalignment. Adequate contrast in the right hip joint. No labral tear. There is a normal gallium filled sulcus in the inferior labrum. No destructive or suspicious bone lesions. Imaged muscles, ligaments and tendons of the hip and pelvis are within normal limits. Additional findings: No incidental findings of concern. Procedure Note Jaspal Morgan MD - 12/07/2020 COMPARISON: MRI right hip 07/23/2019. TECHNIQUE: Exam performed on a 1.5 Bhavani high-field MRI scanner. Dilutegadolinium solution was injected before the MRI-please see separatereport. Coronal T1, T2 and T2 with fat suppression of both hips, axial,coronal, and oblique sagittal T1 with fat suppression of the affected hipsequences were obtained. MRI RIGHT HIP ARTHROGRAM FINDINGS: Musculoskeletal: Joint spaces are preserved. No malalignment. Adequatecontrast in the right hip joint. No labral tear. There is a normal galliumfilled sulcus in the inferior labrum. No destructive or suspicious bonelesions. Imaged muscles, ligaments and tendons of the hip and pelvis arewithin normal limits. Additional findings: No incidental findings of concern. IMPRESSION: No evidence of a right hip labral tear. us Vj Daniel DO IMG MR EXTREMITY Final Resul t * FL Hip Arthrogram (Right) (12/07/2020 12:35 PM EDT) Anatomical Region Laterality Modality Hip Right Radio Fluoroscop y 12/07/2020 1:18 PM EDT Impressions 12/07/2020 1:20 PM EDT Successful intra-articular administration of contrast. MR arthrography is pending, to be reported separately. FLUOROSCOPY TIME: 2 min. 51 sec; 2 IMAGES/FRAMES POS - [id number] Narrative 12/07/2020 1:20 PM EDT COMPARISON: None FINDINGS: An AP benefits advisor view reveals no acute bony abnormality or advanced arthritic change. Once informed consent was obtained and the appropriate side of intervention confirmed by the patient and radiologist the overlying skin and subcutaneous tissues were infiltrated with a lidocaine solution. A spinal needle was then percutaneously inserted via an anterior approach and following confirmation of an intra- capsular location of the needle tip via injection of a small amount of radiographic contrast, approximately 15 cc of a dilute gadolinium mixture was instilled. Following removal of the needle the patient was sent to the MR suite for further imaging. She tolerated the procedure well without immediate complications encountered. Procedure Note Easton Quinn MD - 12/07/2020 COMPARISON: None FINDINGS: An AP benefits advisor view reveals no acute bony abnormality or advanced arthriticchange. Once informed consent was obtained and the appropriate side ofintervention confirmed by the patient and radiologist the overlying skinand subcutaneous tissues were infiltrated with a lidocaine solution. Aspinal needle was then percutaneously inserted via an anterior approachand following confirmation of an intra-capsular location of the needle tipvia injection of a small amount of radiographic contrast, approximately 15cc of a dilute gadolinium mixture was instilled. Following removal of theneedle the patient was sent to the MR suite for further imaging. Shetolerated the procedure well without immediate complicationsencountered. IMPRESSION: Successful intra-articular administration of contrast. MR arthrography ispending, to be reported separately. FLUOROSCOPY TIME: 2 min. 51 sec; 2 IMAGES/FRAMES POS - [id number] Vj Daniel DO IMG IR MSK Final Result documented in this encounter Visit Diagnoses Diagnosis Right hip pain- Primary Pain in joint, pelvic region and thigh Other instability, right hip Right hip pain Pain in joint, pelvic region and thigh Other instability, right hip Right hip pain Pain in joint, pelvic region and thigh Other instability, right hip documented in this encounter Care Teams Advanced Practice Nurse Relationship Specialty Start Date End Date MaldonadoDemetrio Lima MD [address] [place] [address] PCP - General 10/01/20 documented as of this encounter Additional Source Comments The information contained in this document represents components of the legal health record. It is not the complete legal health record.[facility]
--- OUTSIDE RECORDS SUMMARY | 2025-06-11 18:03 | XMS_ITS | Clinical Summary ---
Author Organization [facility] Address [address] [place] [address] Drive [address] [place] [address] Phone Care Team Providers Care Appetizer Packer Name Role Phone Demetrio Anna MD Primary [...] file Medical Devices Not on file Insurance [facility] CO[facility]ATIVE C3 ACO C3 ACO C3 ACO C3 ACO C3 ACO C3 ACO C3 ACO [facility] C[address] [place] [address] [place] [id number] C3 ACO [employer] COMPENSATION Care Teams Appetizer Packer Relationship Specialty Start Date End Date Demetrio Anna MD [address] [place] [address] PCP - General 10/01/20 Additional Source Comments The information contained in this document represents components of the legal health record. It is not the complete legal health record.[facility]
--- OUTSIDE RECORDS SUMMARY | 2025-06-11 18:03 | XMS_ITS | Encounter Summary ---
Author Organization [employer] Address [address] [facility] 7t [place] [address] Care Team Providers Care Dock Operator Name Role Phone Tammie Liu MD Primary Care Provider [phone] Reason for Visit * Reason Onset Date Comments Nurse Triage 09/02/2024 Encounter Details Date Type Department Care Team ([facility] Contact Info) Description 09/02/2024 Telephone [facility] MEDICINE [address] [place] [address] Tammie Liu MD [address] [place] [address] Nurse Triage Social History Tobacco Use Types [...] aches. Pt is offered apt today in [facility] but, declines because of [...] 1:30 PM EDT Clinical Support [facility] MED & PEDS [address] [place] [address] Tania Valenzuela RN [address] [place] [address] 07/21/2025 1:45 PM EST Office Visit [facility] MED & PEDS [address] [place] [address] Tammie Liu MD [address] [place] [address] documented as of this encounter Visit Diagnoses Not on filedocumented in this encounter Additional Health Concerns Assessment Noted Time PHQ-9 Depression Total Score: 0 03/14/20 24 10:37 AM EDT documented as of this encounter Care Teams Dock Operator Relationship Specialty Start Date End Date Tammie Liu MD [address] [place] [address] PCP - General Family Medicine 12/21/22 documented as of this encounter
--- OUTSIDE RECORDS SUMMARY | 2025-06-11 18:03 | XMS_ITS | Encounter Summary ---
Author Organization [employer] Address [address] [facility] 7t [place] [address] Care Team Providers Care Hvac Lead Name Role Phone Tammie Liu MD Primary Care Provider [phone] Encounter Details Date Type Department Care Team (Late st Contact Info) Description 10/27/2024 Orders Only [facility] MEDICINE [address] [place] [address] Provider, MD Parker Social History Tobacco Use Types Packs/Day Years [...] 1:30 PM EDT Clinical Support [facility] MED & PEDS [address] [place] [address] Tania Valenzuela RN [address] [place] [address] 07/21/2025 1:45 PM EST Office Visit [facility] MED & PEDS [address] [place] [address] Tammie Liu MD [address] [place] [address] documented as of this encounter Procedures Procedure Name Priority Date/Time Associated Diagnosis Comments HM COLONOSCOPY Routine 10/24/2024 6:56 PM EST documented in this encounter Results * Hm Colonoscopy (10/24/2024 6:56 PM EST) Historical Provider HEALTH MAINTENANCE Final Result documented in this encounter Visit Diagnoses Not on filedocumented in this encounter Additional Health Concerns Assessment Noted Time PHQ-9 Depression Total Score: 0 03/14/20 24 10:37 AM EDT documented as of this encounter Care Teams Hvac Lead Relationship Specialty Start Date End Date Tammie Liu MD [address] [place] [address] PCP - General Family Medicine 12/21/22 documented as of this encounter
--- OUTSIDE RECORDS SUMMARY | 2025-06-11 18:03 | XMS_ITS | Clinical Summary ---
Author Organization [facility] Address [address] [place] [phone] Phone Care Team Providers Care Patrol Police Sergeant Name Role Phone Tammie Liu MD Primary Care Provider [phone] Allergies Active Allergy Reactions Criticality Noted Date [...] aqta) 19yo and older 01/10/2020,07/11/2019 Hepatitis B (Mkzbbqh-M-Ovyfd , Recombivax HB-Adult) 19yo and older 01/10/2020,11/11/2019,07/11/2019 Tdap Tetanus diptheria acell ular pertussis (Boostrix; Adacel) 7yo and older 01/10/2020 Surgical History Surgery Date Site/Laterality Comments CHOLECYSTECTOMY 2008 PROCEDURE: [place] CHOLECYSTECTOMY SECTION 1997 and 2010 PROCEDURE: HISTORICAL [...] 08/28/2022 Hypertension/CHF/CAD Annual BMP Blood Test 2024 Depression Screening 09/18/2024 Breast Cancer Screening 02/10/2025 02/10/2023 COVID-19 Vaccine (3 - 2024-2 6 season) 2025 08/04/2021, 07/07/2021 Influenza Vaccine (#1) 2025 Cholesterol Screening (Lipid [...] MEDICARE MEDICAID - [place] GENERIC Care Teams Patrol Police Sergeant Relationship Specialty Start Date End Date Tammie Liu MD [address] [place] [address] PCP - General Family Medicine 08/06/24
--- OUTSIDE RECORDS SUMMARY | 2025-06-11 18:03 | XMS_ITS | Encounter Summary ---
Author Organization [facility] Address [address] [facility] [address] [place] [address] Phone Care Team Providers Care Office Copy Selector Name Role Phone Demetrio Anna MD Primary Care Prov ider Encounter Details Date Type Department Care Team (Late st Contact Info) Description 12/02/2020 Ancillary Orders [facility],Outside Imaging [address] [place], [place] [id number] System, Provider Not In, [facility] [address] [address] Social History Tobacco Use Types Packs/Day Years Used Date Smoking Tobacco: Never Assessed Comments Unknown Sex and Gender Information Value Date Recorded Sex Assigned at Not on file Legal Sex Female 8:11 AM EST Gender Identity Not on file Sexual Orientation Not on file documented as of this encounter Plan of Treatment Not on file documented as of this encounter Results * MRI Pelvis (Bone) Outside (No Interpretation) (07/23/2019 12:00 AM EST) Narrative SYSTEMGENERATED, DOCUMENTATION - 12/02/2020 10:36 AM EDT This study is for PACS storage only and not for interpretation. us Provider Not In System PhD IMG OUTSIDE IMAGING W /OUT INTERPRETATION Final Result documented in this encounter Visit Diagnoses Not on filedocumented in this encounter Care Teams Office Copy Selector Relationship Specialty Start Date End Date Demetrio Anna MD [address] [place] [address] PCP - General 10/01/20 documented as of this encounter Additional Source Comments The information contained in this document represents components of the legal health record. It is not the complete legal health record.[facility]
--- OUTSIDE RECORDS SUMMARY | 2025-06-11 18:03 | XMS_ITS | Encounter Summary ---
Author Organization [facility] Address [address] [place] [address] Phone Care Team Providers Care Delivery Recruiter Name Role Phone Unknown, Unknown Primary Care Provider Demetrio Davis MD Primary Care Prov ider Encounter Details Date Type Department Care Team (Late st Contact Info) Description 09/30/2020 Ancillary Orders Virtual Department [address] [place] [address] Lisa Venegas, LOTTIE [address] [place] [phone] [email or web address] Personal history of fall; Right knee pain, unspecified chronicity Social History Tobacco Use Types Packs/Day Years Used Date Smoking Tobacco: Never Assessed Comments Unknown Sex and Gender Information Value Date Recorded Sex Assigned at Not on file Legal Sex Female 8:11 AM EST Gender Identity Not on file Sexual Orientation Not on file documented as of this encounter Plan of Treatment Not on file documented as of this encounter Results * XR KNEE 4 OR MORE VIEWS (RIGHT) (10/01/2020 3:04 PM EST) Anatomical Region Laterality Modality Knee Right Computed Radiogr aphy 10/01/2020 3:09 PM EST Narrative 10/01/2020 3:15 PM EST TECHNIQUE: XR KNEE 4 OR MORE VIEWS (RIGHT) Clinical history: Worsening right knee pain. Falling injuries 2018 and 2019. FINDINGS: There is mild degenerative narrowing of the medial femoral-tibial joint compartment with mild bony remodeling, and the lateral compartment demonstrates mild bony remodeling with small multidirectional osteophytes. Distal femoral shaft and medial and lateral femoral epicondyles demonstrate no evidence of periosteal reaction and, tibial plateau, fibular head and proximal tibial and fibular shaft demonstrate no evidence of fracture or abnormal periosteal reaction. There is mild degenerative bony remodeling of the patellofemoral joint. There are no soft tissue calcifications or other soft tissue abnormalities demonstrated. 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 No evidence of fracture seen about the knee. No soft tissue abnormalities demonstrated. Procedure Note Paolo Fofana MD - 10/01/2020 TECHNIQUE: XR KNEE 4 OR MORE VIEWS (RIGHT) Clinical history: Worsening right knee pain. Falling injuries 2018 [id number]. FINDINGS: There is mild degenerative narrowing of the medial femoral-tibial jointcompartment with mild bony remodeling, and the lateral compartmentdemonstrates mild bony remodeling with small multidirectionalosteophytes. Distal femoral shaft and medial and lateral femoral epicondylesdemonstrate no evidence of periosteal reaction and, tibial plateau,fibular head and proximal tibial and fibular shaft demonstrate no evidenceof fracture or abnormal periosteal reaction. There is mild degenerative bony remodeling of the patellofemoral joint. There are no soft tissue calcifications or other soft tissue abnormalitiesdemonstrated. 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 No evidence of fracture seen about the knee. No soft tissue abnormalities demonstrated. Lisa Venegas METALLURGIST PROCESS IMG XR LOWER EXTREMITY Final Res ult documented in this encounter Visit Diagnoses Diagnosis Personal history of fall Right knee pain, unspecified chronicity Personal history of fall Right knee pain, unspecified chronicity documented in this encounter Care Teams Delivery Recruiter Relationship Specialty Start Date End Date Unknown, Unknown, MD PCP - General 09/30/20 09/30/20 Demetrio Anna MD [address] [place] [address] PCP - General 10/01/20 documented as of this encounter Additional Source Comments The information contained in this document represents components of the legal health record. It is not the complete legal health record.[facility]
--- OUTSIDE RECORDS SUMMARY | 2025-06-11 18:03 | XMS_ITS | Encounter Summary ---
Author Organization [employer] Address [address] [facility] 7t [place] [address] Care Team Providers Care Astrobiologist Name Role Phone Tammie Liu MD Primary Care Provider [phone] Reason for Visit * Reason Onset Date Comments Medication Question 02/28/2024 Encounter Details Date Type Department Care Team ([facility] Contact Info) Description 02/28/2024 Telephone [facility] CHC MED & PEDS [address] [place], [place] [phone] Tammie Liu MD [address] [place] [address] Medication Question Social History Tobacco Use Types [...] Garcia RN - 03/01/2024 3:05 PM EDT [employer] message sent to pt. * Telephone Encounter [...] 1:30 PM EDT Clinical Support [facility] MED & PEDS [address] [place] [address] Tania Valenzuela RN [address] [place] [address] 07/21/2025 1:45 PM EST Office Visit [facility] MED & PEDS [address] [place] [address] Tammie Liu MD [address] [place] [address] documented as of this encounter Visit Diagnoses Not on filedocumented in this encounter Additional Health Concerns Assessment Noted Time PHQ-9 Depression Total Score: 1 12/31/19 23 10:22 AM EDT documented as of this encounter Care Teams Astrobiologist Relationship Specialty Start Date End Date Tammie Liu MD [address] [place] [address] PCP - General Family Medicine 12/21/22 documented as of this encounter
--- OUTSIDE RECORDS SUMMARY | 2025-06-11 18:03 | XMS_ITS | Encounter Summary ---
Author Organization [facility] Address [address] [place] [phone] Phone Care Team Providers Care Roof Shingler Name Role Phone Demetrio Anna MD Primary Care Prov ider Encounter Details Date Type Department Care Team (Late st Contact Info) Description 11/20/2020 Procedure Pass [facility], X-Ray - [address] [address] Social History Tobacco Use Types Packs/Day Years [...] on filedocumented in this encounter Care Teams Roof Shingler Relationship Specialty Start Date End Date Demetrio Anna MD [address] [place] [address] PCP - General 10/01/20 documented as of this encounter Additional Source Comments The information contained in this document represents components of the legal health record. It is not the complete legal health record.[facility]
--- OUTSIDE RECORDS SUMMARY | 2025-06-11 18:03 | XMS_ITS | Encounter Summary ---
Author Organization [employer] Address [address] [place] [address] 7t [place] [address] Care Team Providers Care Marketing Database Coordinator Name Role Phone Tammie Liu MD Primary Care Provider [phone] Encounter Details Date Type Department Care Team (Late Contact Info) Description 05/25/2023 Telephone [facility] MED & PEDS [address] [place] [address] Tammie Liu MD [address] [place] [address] Social History Tobacco Use Types Packs/Day Years [...] 07/17/2025 1:30 PM EDT Clinical Support [facility] MED & PEDS [address] [place] [address] Tania Valenzuela, FARA [address] [place], [place] [phone] 07/21/2025 1:45 PM EST Office Visit [facility] CHC MED & PEDS [address] [place] [address] Tammie Liu MD [address] [place] [address] documented as of this encounter Visit Diagnoses Not on filedocumented in this encounter Additional Health Concerns Assessment Noted Time PHQ-9 Depression Total Score: 1 12/31/19 10:22 AM EDT documented as of this encounter Care Teams Marketing Database Coordinator Relationship Specialty Start Date End Date Tammie Liu MD [address] [place] [address] PCP - General Family Medicine 12/21/22 documented as of this encounter
--- OUTSIDE RECORDS SUMMARY | 2025-06-11 18:03 | XMS_ITS | Encounter Summary ---
Author Organization [employer] Address [address] [facility] 7t [place] [address] Care Team Providers Care Supervisor Central Supply Name Role Phone Tammie Liu MD Primary Care Provider [phone] Reason for Visit * Reason Comments Med Change Request Encounter Details Date Type Department Care Team ([facility] Contact Info) Description 09/26/2023 Refill [facility] [address] [place] [address] Tammie Liu MD [address] [place] [address] Wheezing Social History Tobacco Use Types Packs/Day [...] Description 07/17/2025 1:30 PM EDT Clinical Support [facility] MED & PEDS [address] [place] [address] Tania Valenzuela RN [address] [place] [address] 07/21/2025 1:45 PM EST Office Visit [facility] MED & PEDS [address] [place] [address] Tammie Liu MD [address] [place] [address] documented as of this encounter Visit Diagnoses Diagnosis Wheezing documented in this encounter Additional Health Concerns Assessment Noted Time PHQ-9 Depression Total Score: 1 12/31/19 23 10:22 AM EDT documented as of this encounter Care Teams Supervisor Central Supply Relationship Specialty Start Date End Date Tammie Liu MD [address] [place] [address] PCP - General Family Medicine 12/21/22 documented as of this encounter
--- OUTSIDE RECORDS SUMMARY | 2025-06-11 18:03 | XMS_ITS | Encounter Summary ---
Author Organization [employer] Address [address] [facility] 7t [place] [address] Care Team Providers Care Credit Assessment Analyst Name Role Phone Tammie Liu MD Primary Care Provider [phone] Reason for Visit * Reason Comments Med Refill Encounter Details Date Type Department Care Team (Late st Contact Info) Description 2023 Refill [facility] MED & PEDS [address] [place] [address] Tammie Liu MD [address] [place] [address] Social History Tobacco Use Types Packs/Day Years [...] Description 07/17/2025 1:30 PM EDT Clinical Support [facility] MED & PEDS [address] [place] [address] Tania Valenzuela RN [address] [place] [address] 07/21/2025 1:45 PM EST Office Visit [facility] MED & PEDS [address] [place] [address] Tammie Liu MD [address] [place] [address] documented as of this encounter Visit Diagnoses Not on filedocumented in this encounter Additional Health Concerns Assessment Noted Time PHQ-9 Depression Total Score: 1 12/31/19 23 10:22 AM EDT documented as of this encounter Care Teams Credit Assessment Analyst Relationship Specialty Start Date End Date Tammie Liu MD [address] [place] [address] PCP - General Family Medicine 12/21/22 documented as of this encounter
--- OUTSIDE RECORDS SUMMARY | 2025-06-11 18:03 | XMS_ITS | Encounter Summary ---
Author Organization [employer] Address [address] [facility] [address] [place] [address] Care Team Providers Care Skid Strapper Name Role Phone Tammie Liu MD Primary Care Provider [phone] Reason for Visit * Reason Onset Date Comments Med Refill 06/07/2024 Encounter Details Date Type Department Care Team ([facility] st Contact Info) Description 06/07/2024 Telephone [facility] MED & PEDS [address] [place] [address] Tammie Liu MD [address] [place] [address] Med Refill Social History Tobacco Use Types [...] immediate release tablet To be sent to: [facility] - [place], [place] - [address] [place] [address] documented in this encounter Plan of Treatment Upcoming Encounters Date Type Department Care Team ([facility] st Contact Info) Description 07/17/2025 1:30 PM EDT Clinical Support [facility] MED & PEDS [address] [place] [address] Tania Valenzuela RN [address] [place] [address] 07/21/2025 1:45 PM EST Office Visit [facility] MED & PEDS [address] [place] [address] Tammie Liu MD [address] [place] [address] documented as of this encounter Visit Diagnoses Not on filedocumented in this encounter Additional Health Concerns Assessment Noted Time PHQ-9 Depression Total Score: 0 03/14/20 10:37 AM EDT documented as of this encounter Care Teams Skid Strapper Relationship Specialty Start Date End Date Tammie Liu MD [address] [place] [address] PCP - General Family Medicine 12/21/22 documented as of this encounter
--- OUTSIDE RECORDS SUMMARY | 2025-06-11 18:03 | XMS_ITS | Encounter Summary ---
Author Organization [employer] Address [address] [facility] 7[address] [place] [address] Care Team Providers Care Hotel Room Attendant Name Role Phone Tammie Liu MD Primary Care Provider [phone] Reason for Visit * Reason Onset Date Comments Reschedule 02/01/2024 Encounter Details Date Type Department Care Team ([facility] st Contact Info) Description 02/01/2024 Telephone [facility] MEDICINE [address] [place] [address] Tammie Liu MD [address] [place] [address] Reschedule Social History Tobacco Use Types Packs/Day [...] AM EDT Tc from 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 documented in this encounter Plan of Treatment Upcoming Encounters Date Type Department Care Team (Late st Contact Info) Description 07/17/2025 1:30 PM EDT Clinical Support [facility] MED & PEDS [address] [place] [address] Tania Valenzuela, FARA [address] [place] [address] 07/21/2025 1:45 PM EST Office Visit [facility] MED & PEDS [address] [place] [address] Tammie Liu MD [address] [place] [address] documented as of this encounter Visit Diagnoses Not on filedocumented in this encounter Additional Health Concerns Assessment Noted Time PHQ-9 Depression Total Score: 1 12/31/19 23 10:22 AM EDT documented as of this encounter Care Teams Hotel Room Attendant Relationship Specialty Start Date End Date Tammie Liu MD [address] [place] [address] PCP - General Family Medicine 12/21/22 documented as of this encounter
--- OUTSIDE RECORDS SUMMARY | 2025-06-11 18:03 | XMS_ITS | Encounter Summary ---
Author Organization [employer] Address [address] [facility] 7t [place] [address] Care Team Providers Care Component Overhaul Operator Name Role Phone Demetrio Anna MD Primary Care Prov ider Tammie Liu MD Primary Care Provider [phone] Reason for Visit * Reason Onset Date Comments triage 12/07/2022 Encounter Details Date Type Department Care Team (Late st Contact Info) Description 12/07/2022 Telephone [facility] MEDICINE [address] [place] [address] Demetrio Anna MD [address] [place] [address] triage Social History Tobacco Use Types Packs/Day [...] new concerns. Will task to [place] in [facility] to follow up and reschedule appt as [...] PM EDT Clinical Support [facility] MED & PEDS [address] [place] [address] Tania Valenzuela RN [address] [place] [address] 07/21/2025 1:45 PM EST Office Visit [facility] MED & PEDS [address] [place] [address] Tammie Liu MD [address] [place] [address] documented as of this encounter Visit Diagnoses Not on filedocumented in this encounter Care Teams Component Overhaul Operator Relationship Specialty Start Date End Date Demetrio Anna MD [address] [place] [address] PCP - General Internal Medicine 01/21/20 12/20/22 Tammie Liu MD [address] [place] [address] PCP - General Family Medicine 12/21/22 documented as of this encounter
== END ==
LOC: HO.SL 16:03
PROVIDERS: Visit Provider Family Medicine
DX: R06.83 Snoring (principal); G47.30 Sleep apnea, unspecified
CPT/HCPCS: 95806

== ENCOUNTER → 2025-06-11 21:00 | Outpatient (BNV) | payer MEDICARE, MEDICAID, SELFPAY | PROVIDERS: Visit Provider Internal Medicine | DX: R06.83 Snoring (principal) | CPT/HCPCS: 95806 ==

== ENCOUNTER 2025-08-25 10:02 | Outpatient (REF) | payer MEDICARE, MEDICAID, SELFPAY ==
--- NOTE | ~2025-08-25 | XR_ITS ---
EXAMINATION: XR KNEE, LEFT CLINICAL INFORMATION: M25.569 - Pain in unspecified knee COMPARISON: X-ray left knee 01/31/2023 TECHNIQUE: Two views of the left knee. AP bilateral knees one view FINDINGS: Left knee: Mild medial compartment joint space narrowing. No acute fracture or dislocation. Small effusion. No suspicious soft tissue calcification. Right knee: One view Lateral compartment marginal spurring. No acute findings seen. XR/XR knee LT 3V IMPRESSION: Left knee: Mild medial compartment arthritis. Small effusion. Electronically signed by: Heber Beth MD 08/26/2025 02:28 PM [facility]
== END 2025-08-25 10:03 | disposition home or self-care (01) ==
LOC: HO.HOSX 10:02
PROVIDERS: Visit Provider Physician Assistant
DX: M17.12 Unilateral primary osteoarthritis, left knee (principal)
CPT/HCPCS: 73562; 99202

== ENCOUNTER 2025-08-25 13:11 | Outpatient (AMB) | payer MEDICARE, MEDICAID, SELFPAY ==
--- NOTE | 2025-08-25 13:13 | MHC.OFFVIS ---
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 patient reports ongoing pain for about over 3 years. She notices that her pain is on the anterior aspect of the knee radiating into the lateral and medial. She says some days she can not flex and extend the leg/knee and when she does she hears a loud pop. Her pain is worse when she is walking, going up and down the stairs bending her knee and palpation. Patient has tried taking oxycodone which gave her mild relief/no relief. She says she fell a few weeks ago, tripped over curb when going to [employer]. Hx of treatment in [employer] and [employer]. She says [facility] told her she needed to lower her BMI to at least 30 to consider a left TKA. Has tried injections in the past but has had a reaction to cortisone, has tried PT with no relief. Patient says PCP does not know what is wrong with patient went she takes NSAIDS or acetaminophen so she advised her not to take it due to extreme random bruising over the body. IMPRESSION (left knee / 01/31/23): Joint effusion. 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 patient reports ongoing pain for about over 3 years. She notices that her pain is on the anterior aspect of the knee radiating into the lateral and medial. She says some days she can not flex and extend the leg/knee and when she does she hears a loud pop. Her pain is worse when she is walking, going up and down the stairs bending her knee and palpation. Patient has tried taking oxycodone which gave her mild relief/no relief. She says she fell a few weeks ago, tripped over curb when going to [employer]. Hx of treatment in [place] [facility] [place]. She says [facility] told her she needed to lower her BMI to at least 30 to consider a left TKA. Has tried injections in the past but has had a reaction to cortisone, has tried PT with no relief. Patient says PCP does not know what is wrong with patient went she takes NSAIDS or acetaminophen so she advised her not to take it due to extreme random bruising over the body. [facility] Medical History Myofascial pain syndrome Overweight Bone spur Surgical History History of carpal tunnel release (~07/2024) S/P rotator cuff repair H/O section Family History (Updated 10/07/24 @ 14:41 by KEV [employer]) Sister GBS (Guillain [place] syndrome) Sister Cervical cancer Sister Colon cancer Social History Alcohol intake: never Patient Tobacco Use Status: Current everyday Tobacco user Tobacco use type: Cigarette Cigarette Packs Per Day: 0.5 Substance Use Type: Caffiene Review of Systems Const All systems reviewed & are unremarkable except as noted in HPI and below Physical Exam Vital Signs: BMI result Body Mass Index 43.6 Const General: cooperative, healthy appearing and no acute distress Resp Effort & Inspection: normal respiratory effort and able to speak in complete sentences Extrem Other: Left knee: Normal to inspection. No ecchymosis, erythema, or joint effusion. Tenderness to palpation along the medial and lateral joint lines. Full knee extension and flexion. NVI. Psych Appearance: grossly normal Mental Status: mental status grossly normal Attitude: cooperative Assessment & Plan Assessment & Plan (1) Osteoarthritis of left knee: Code(s): M17.12 - Unilateral primary osteoarthritis, left knee Category: Medical Plan The patient is a 45-year-old female who presents today for evaluation of her left knee pain. patient reports ongoing pain for about over 3 years. She notices that her pain is on the anterior aspect of the knee radiating into the lateral and medial. She says some days she can not flex and extend the leg/knee and when she does she hears a loud pop. Her pain is worse when she is walking, going up and down the stairs bending her knee and palpation. Patient has tried taking oxycodone which gave her mild relief/no relief. She says she fell a few weeks ago, tripped over curb when going to [employer]. Hx of treatment in [facility] and [facility]. She says [facility] told her she needed to lower her BMI to at least 30 to consider a left TKA. Has tried injections in the past but has had a reaction to cortisone, has tried PT with no relief. Patient says PCP does not know what is wrong with patient went she takes NSAIDS or acetaminophen so she advised her not to take it due to extreme random bruising over the body. While in the office today, I discussed with the patient that with her BMI at 43.6 as well as her age she is not a surgical candidate for a total knee replacement at this time. I educated the patient that in a younger patient there are several risks in addition to the standard surgical risks with a total knee arthroplasty. We discussed higher risk of implant wear and loosening, increase likelihood of revision surgery, activity limitations, progressive stiffness or instability, risk of infection, implant failure, and potential need for future bone preserving procedures making future surgeries more difficult and outcomes less predictable. Patient demonstrates understanding but states that regardless of these risks she wants to proceed with a total knee arthroplasty. Therefore, I have recommended that she seek a 3rd opinion. Her follow up with our office will be PRN, sooner if needed. X-rays of the left knee which were obtained while in the office today and were reviewed by me, Halie Parish PA-C, revealed mild medial compartment osteoarthritis. Orders: Orders XR knee LT 3V 08/25/25 M25.569 - Pain in unspecified knee Coding Level of Care Code New Pt Level 4 (33608) Add On Problem Visit Only Diagnoses Osteoarthritis of left knee M17.12
[2025-08-25 13:25] VITALS: BMI 43.6
--- OUTSIDE RECORDS SUMMARY | 2025-08-25 21:54 | XMS_ITS | Encounter Summary ---
Author Organization [facility] Prior to 07/19/[address] [place] [address] Care Team Providers Care Associate Name Role Phone Cassi Wheeler MD Primary Care Provider Unavailabl e Encounter Details Date Type Department Care Team Description 07/23/2019 Old Medical Records Medical Records [address] [place] [id number] Abstract, Provider Social History Tobacco Use Types Packs/Day Years Used Date Smoking Tobacco: Never Assessed Sex Assigned at Date Recorded Not on file documented as of this encounter Plan of Treatment Not on file documented as of this encounter Visit Diagnoses Not on filedocumented in this encounter Care Teams Associate Relationship Specialty Start Date End Date Cassi Wheeler MD PCP - General Family Practice 07/23/19 documented as of this encounter
--- OUTSIDE RECORDS SUMMARY | 2025-08-25 21:54 | XMS_ITS | Encounter Summary ---
Author Organization [facility] Prior to 07/19/2024 Address [address] [place] [address] Care Team Providers Care Cardiac Rehabilitation Specialist Name Role Phone Cassi Wheeler MD Primary Care Provider Unavailemily e Encounter Details Date Type Department Care Team Description 09/19/2023 Incoming Correspondence [facility] [address] [facility] [address] [place] [address] Cassandra Quinonez NP [facility] [place] [address] Social History Tobacco Use Types Packs/Day Years Used Date Smoking Tobacco: Every Day Smokeless Tobacco: Never Alcohol Use Standard Drinks/Week Comments Never 0 (1 standard drink = 0.6 oz pur e alcohol) Sex Assigned at Date Recorded Not on file documented as of this encounter Plan of Treatment Not on file documented as of this encounter Visit Diagnoses Not on filedocumented in this encounter Care Teams Cardiac Rehabilitation Specialist Relationship Specialty Start Date End Date Cassi Wheeler MD PCP - General Family Practice 07/23/19 documented as of this encounter
--- OUTSIDE RECORDS SUMMARY | 2025-08-25 21:54 | XMS_ITS | Encounter Summary ---
Author Organization [facility] Prior to 07/19/2024 Address [address] [place] [address] Care Team Providers Care Aerospace Medicine Physician Name Role Phone Community, Pcp Primary Care Provider Cassi Russell MD Primary Care Provider Martha lynn Encounter Details Date Type Department Care Team Description 06/11/2019 Transcript Clerk Report Medical Records [address] [place] [address] Diana Armstrong Social History Tobacco Use Types Packs/Day Years Used Date Smoking Tobacco: Never Assessed Sex Assigned at Date Recorded Not on file documented as of this encounter Plan of Treatment Not on file documented as of this encounter Visit Diagnoses Not on filedocumented in this encounter Care Teams Aerospace Medicine Physician Relationship Specialty Start Date End Date Community, Pcp PCP - General Internal Medicine 06/13/19 07/22/19 Cassi Wheeler MD PCP - General Family Practice 07/23/19 documented as of this encounter
--- OUTSIDE RECORDS SUMMARY | 2025-08-25 21:54 | XMS_ITS | Encounter Summary ---
Author Organization [facility] Prior to 07/19/2024 Address [address] [place] [address] Care Team Providers Care Certified Pharmacy Technician Name Role Phone Cassi Wheeler MD Primary Care Provider Unavailabl e Encounter Details Date Type Department Care Team Description 12/12/2022 SCAN [facility] [address] [phone] Shanon Martinez MD [address] [address] Social History Tobacco Use Types Packs/Day Years [...] on filedocumented in this encounter Care Teams Certified Pharmacy Technician Relationship Specialty Start Date End Date Cassi Wheeler MD PCP - General Family Practice 07/23/19 documented as of this encounter
== END 2025-08-25 14:04 | disposition home or self-care (01) ==
LOC: HO.HOS 13:11
PROVIDERS: Visit Provider Physician Assistant
DX: M17.12 Unilateral primary osteoarthritis, left knee (principal)
CPT/HCPCS: 99204; G2211

== ENCOUNTER → 2025-08-25 13:17 | Outpatient (BNV) | payer MEDICARE, MEDICAID, SELFPAY | PROVIDERS: Visit Provider Radiology Diagnostic Ultrasound | DX: M17.12 Unilateral primary osteoarthritis, left knee (principal); M25.462 Effusion, left knee | CPT/HCPCS: 73562 ==